=== PATIENT | female | born 1955 | race Caucasian/White ===

== ENCOUNTER 2016-06-22 21:10 | Emergency (ER) | payer OTHER ==
[~2016-06-22] VITALS: Ht 149.9 cm; Wt 51.0 kg
[~2016-06-22 21:10] MED LIST: AMIT25TA9 PO; MELO7.5T7 PO; RMR15 PO; SIMV20TA2 PO
[2016-06-22 21:17] VITALS: TEMP 37.3; Ht 149.9 cm; Wt 51.0 kg
[2016-06-22] MEDS ORDERED: OXYCODONE HCL IR 5 MG TAB (IMMEDIATE RELEASE) PO STA (21:34)
[2016-06-22] MEDS ORDERED: ZCR40 PO (21:39)
[2016-06-22] MEDS ORDERED: MIRT30TA3 PO (21:39)
[2016-06-22] MEDS ORDERED: CLX/20 PO (21:39)
[2016-06-22] MEDS ORDERED: VTMD PO (21:39)
[2016-06-22] MEDS ORDERED: LISI-461 PO (21:39)
[2016-06-22] MEDS ORDERED: OXYCODONE IR HOME PACK PO ONE (21:45)
--- NOTE | 2016-06-22 22:03 | DIAGNOSTIC IMAGING REPORT ---
CHEST CT WITHOUT CONTRAST CT DOSE: 180.15 mGy.cm HISTORY: Fall. Right-sided chest pain. TECHNIQUE: Multiaxial CT images of the chest were performed without contrast. COMPARISON: Chest CT 09/28/2014. FINDINGS: Nondisplaced right posterior lateral 11th rib fracture. No pneumothorax. No pleural effusions. The central airways are patent. Mild emphysema. Mild bibasilar subsegmental atelectasis. Stable 4 mm groundglass nodule within the left upper lobe on image 65. Stable multiple subpleural nodular densities within the base of the right lower lobe. These demonstrate near 2 year stability. Dominant nodular foci measure 8 mm. No new nodules. Normal caliber thoracic aorta. The unenhanced spleen and adrenal glands are unremarkable. Cholecystectomy. Stable 7 mm hypodense lesion within the right hepatic dome. This is incomplete characterize on this noncontrast study but favors a cyst. Stable 5 mm of mental nodule anterior to the left hepatic lobe. Mildly enlarged axillary and mediastinal lymph nodes remain unchanged. No hilar lymphadenopathy. IMPRESSION: 1. Nondisplaced right 11th rib fracture. No pneumothorax. 2. Otherwise, no significant change compared the prior study. 3. Subcentimeter right lower lobe nodular densities and mildly enlarged axillary and mediastinal lymph nodes are again noted. Six-month chest CT follow up is recommended to evaluate for stability. 4. Emphysema. 5. Stable 5 mm omental nodule anterior to the left hepatic lobe. Electronically signed by: Karlo Balderas M.D. 06/22/2016 10:01 PM Dictated Date/Time: 06/22/2016 9:52 PM
[2016-06-22] MEDS ORDERED: OXYC1TAB3 PO ×2 (22:12→22:19)
[2016-06-22 22:26] VITALS: BP 144/89; PULSE 77; O2SAT 99
--- NOTE | 2016-06-23 03:23 | EMERGENCY ROOM VISIT NOTE ---
History First contact with patient: 21:34 Chief Complaint: RIB PAIN Stated Complaint: FELL ON ICE HAD RIGHT SIDE PAIN History of Present Illness The patient is a 61 year old female who presents to the Emergency Room with complaints of right lateral chest pain after she fell on the ice hitting her right side. Patient denies head injury, neck pain, back pain, abdominal pain, nausea, vomiting, diarrhea, loss of conscious. No prior rib injury to this area. No other, as per patient. No alcohol today. She does smoke. Review of Systems See HPI for pertinent positives & negatives. A total of 10 systems reviewed and were otherwise negative. Past Medical/Surgical History Hypertension, hyperlipidemia, migraines, cholecystectomy Social History Smoking Status: Current Every Day Smoker Alcohol Use: none Drug Use: none Current/Historical Medications Scheduled Amitriptyline Hcl (Elavil), 25 MG PO DAILY Citalopram (Citalopram Hydrobromide), 20 MG PO DAILY Ergocalciferol (Vitamin D), 50,000 INTER.UNIT PO WK Lisinopril (Lisinopril), 10 MG PO DAILY Meloxicam (Mobic), 7.5 MG PO DAILY Mirtazapine (Remeron), 30 MG PO HS Simvastatin (Simvastatin), 40 MG PO QPM Scheduled PRN Oxycodone Immediate Rel Tab (Roxicodone Ir), 1-2 TAB PO Q4H PRN for Severe Pain Allergies Coded Allergies: No Known Allergies (Unverified , 03/29/14) Physical Exam Vital Signs Date Time Temp Pulse Resp B/P Pulse Ox O2 Delivery O2 Flow Rate FiO2 06/22/16 22:26 77 16 144/89 99 06/22/16 21:17 37.3 98 16 186/83 98 Room Air Pain Rating (0-10): 0 Physical Exam PHYSICAL EXAM: VITALS: Vitals are noted on the nurse's note and reviewed by myself. Vital signs stable. GENERAL: Pleasant female pacing around treatment room, in no acute distress, nondiaphoretic, well-developed well-nourished. SKIN: The skin was without obvious lacerations or abrasions. Capillary reflex less than 2 seconds. HEAD: Normocephalic atraumatic. EARS: External auditory canals clear, tympanic membranes pearly hernandez without erythema or effusion bilaterally. No hemotympanums. No salomon sign. No mastoid tenderness. EYES: Pupils equal round and reactive to light and accommodation. Conjunctivae without injection, sclerae without icterus. Extraocular movements intact. NOSE: Patent, turbinates without inflammation or discharge. No sinus tenderness. No septal hematoma or bleeding. FACE: No facial bone tenderness. Full range of motion of the jaw without tenderness. MOUTH: Mucous membranes moist. Pharynx without erythema or exudate. Uvula midline. Airway patent. Tongue does not deviate. NECK: Supple without nuchal rigidity. Cervical spine is nontender. Full range of motion of the neck without tenderness. No JVD. HEART: Regular rate and rhythm LUNGS: Clear to auscultation bilaterally without wheezes, rales or rhonchi. No dullness to percussion. No retractions or accessory muscle use. Lower lateral chest wall tenderness. ABDOMEN: Positive bowel sounds x 4. Normal tympanic percussion. Soft, nontender, without masses or organomegaly. No guarding or rebound tenderness. MUSCULOSKELETAL: No tenderness of the thoracic or lumbar spine. No tenderness with pelvic rocking. Full range of motion without tenderness to palpation in all extremities. Normal gait. Strength 5/5 throughout. Peripheral pulses 2+. NEURO: Patient was alert and oriented to person place and time. Normal Mini- Mental status exam. Normal sensation to light and sharp touch. Negative Romberg and pronator drift. Cerebellar function intact. No focal neurological deficits. Medical Decision & Procedures Medications Administered Medications (Trade) Dose Ordered Sig/Chicho Route Start Time Stop Time Status Last Admin Dose Admin Oxycodone HCl (Roxicodone Immediate Rel Tab) 5 mg NOW STAT PO 06/22/16 21:34 06/22/16 21:35 DC 06/22/16 21:34 5 MG ED Course Prior records/ancillary studies reviewed. Triage Nursing notes reviewed. Additional history obtained from family. The patient's history was concerning for traumatic injury Differential diagnosis: Etiologies such as fracture, dislocation, intra-abdominal, pneumothorax, intrathoracic , intracranial, neurologic, as well as other traumatic pathologies were entertained. Physical examination findings: As above. The patients vitals were hypertensive ER treatment provided: Incentive spirometry, OxyIR On reassessment the patient felt better. Vital signs were stable. Diagnostic interpretation by me: Imaging studies: CHEST CT WITHOUT CONTRAST CT DOSE: 180.15 mGy.cm HISTORY: Fall. Right-sided chest pain. TECHNIQUE: Multiaxial CT images of the chest were performed without contrast. COMPARISON: Chest CT 09/28/2014. FINDINGS: Nondisplaced right posterior lateral 11th rib fracture. No pneumothorax. No pleural effusions. The central airways are patent. Mild emphysema. Mild bibasilar subsegmental atelectasis. Stable 4 mm groundglass nodule within the left upper lobe on image 65. Stable multiple subpleural nodular densities within the base of the right lower lobe. These demonstrate near 2 year stability. Dominant nodular foci measure 8 mm. No new nodules. Normal caliber thoracic aorta. The unenhanced spleen and adrenal glands are unremarkable. Cholecystectomy. Stable 7 mm hypodense lesion within the right hepatic dome. This is incomplete characterize on this noncontrast study but favors a cyst. Stable 5 mm of mental nodule anterior to the left hepatic lobe. Mildly enlarged axillary and mediastinal lymph nodes remain unchanged. No hilar lymphadenopathy. IMPRESSION: 1. Nondisplaced right 11th rib fracture. No pneumothorax. 2. Otherwise, no significant change compared the prior study. 3. Subcentimeter right lower lobe nodular densities and mildly enlarged axillary and mediastinal lymph nodes are again noted. Six-month chest CT follow up is recommended to evaluate for stability. 4. Emphysema. 5. Stable 5 mm omental nodule anterior to the left hepatic lobe. This appears to be consistent with rib fracture status post fall. Patient's forgot to take her blood pressure medication. She is advised to take as directed. She is advised to incentive spirometry 10 times an hour for next 2 weeks to help prevent a drop lung or infection. She is strongly encouraged to quit smoking. She is advised to follow-up family care in a few days or here in the ER sooner for chest pain, difficulty breathing, fevers, worsening signs or symptoms or as needed. Patient did not have an acute abdomen on exam. She was neurovascularly and neurologically intact. No other injuries are noted. She is well-appearing and asked to leave. I felt this was reasonable.. By the evaluation outlined above emergent etiologies such as dislocation, intra- abdominal, pneumothorax, pulmonary contusion, hemothorax, intracranial, neurologic,as well as others were deemed relatively unlikely. The pt informed about the findings as listed above. All questions were answered and pleased with the treatment. Return instructions were outlined and the patient was discharged in stable condition. Outpatient prescription management: OxyIR Referral: The patient was referred to family for follow-up in 2 to 3 days for a recheck of the current condition. Medical Decision As above Impression Primary Impression: Right rib fracture Additional Impressions: Lung nodule seen on imaging study Fall Departure Information Dispostion Home / Self-Care Condition GOOD Prescriptions Oxycodone Immediate Rel Tab (ROXICODONE IR) 5 Mg Tab 1-2 TAB PO Q4H Y for Severe Pain, #10 TAB initial course Prov: Luciana Wheatley PA-C 06/22/16 Forms WORK / SCHOOL INSTRUCTIONS, HOME CARE DOCUMENTATION FORM, IMPORTANT VISIT INFORMATION Patient Instructions My [facility], ED Fx Rib Additional Instructions DO NOT drive, drink alcohol, operate machinery, or perform dangerous activities today. You were given medications in the ER that can affect your ability to safely function or operate a vehicle. Incentive spirometry 10 times an hour for the next 2 weeks while you're awake. Oxycodone (OxyIR) 5mg: Take 1-2 pills every four hours for breakthrough pain. Avoid alcohol, operating machinery or dangerous equipment, working on ladders or roofs, DRIVING, or situations where being under the influence may be dangerous. It is recommended to use an [id number] stool softener such as Colace, 100mg twice daily while taking this medication to avoid constipation. Ibuprofen(Motrin, Advil) may be used for fever or pain. Use 600mg every six hours as needed. Take with food. Avoid using more than 2400mg in a 24 hour period. Do not use 2400mg per day for more than three consecutive days without physician direction. Prolonged inappropriate use can lead to stomach upset or ulcers. This medication can be taken if you need to drive, work, or perform activities which may be dangerous when taking narcotic pain medication. (AND/OR) Acetaminophen(Tylenol) may be used for fever or pain. Use 1000mg every six hours as needed. Avoid using more than 3000mg in a 24 hour period. This medication can be taken if you need to drive, work, or perform activities which may be dangerous when taking narcotic pain medication. Rest and avoid heavy lifting until your symptoms resolve and then gradually return to full activity. A good rule of thumb is if it hurts your chest to perform a certain activity, then it should be avoided until you are healthy again. Continue current medications. Return to the ER immediately for any fever, chest painb, abdominal pain, numbness, tingling, severe pain, loss of control of your bowels or bladder, inability to walk, or as needed. Follow up with your primary care physician within 2-3 days for a recheck of your current condition. Problem Qualifiers Primary Impression: Right rib fracture Encounter type: initial encounter Rib fracture type: single rib Fracture type: closed Qualified Codes: S22.31XA - Fracture of one rib, right side, initial encounter for closed fracture
== END 2016-06-22 22:27 | disposition home or self-care (01) ==
LOC: C.EDB 21:12 → C.EDD 22:27
DX: S22.31XA Fracture of one rib, right side, initial encounter for closed fracture (principal); W00.0XXA Fall on same level due to ice and snow, initial encounter; F17.200 Nicotine dependence, unspecified, uncomplicated; I10 Essential (primary) hypertension; E78.5 Hyperlipidemia, unspecified; Z90.49 Acquired absence of other specified parts of digestive tract

== ENCOUNTER 2021-04-19 11:54 | Inpatient (IN) ==
--- NOTE | 2021-04-19 12:13 | Emergency Department Note ---
Impression & Plan Expressive aphasia ADMIT ED Provider Note HPI: The patient is a 66-year-old female with history of hypertension, hyperlipidemia, active smoker, presents to the emergency department with a chief complaint of abnormal speech pattern that was noted today at an outpatient appointment. Per report this has been ongoing since Sunday. Here in the ED the patient is able to follow commands, she is able to answer some of my questions appropriately but overall seems to have issues with expressive aphasia. She is hemodynamically stable on arrival and saturating well on room air. She does not have any focal motor deficits on my examination. ROS: -Neuro: Abnormal speech pattern, expressive aphasia x several days *10 point review systems was conducted and is otherwise negative unless stated above *Outpatient medications and allergy history reviewed PE: General: Alert, NAD HEENT: Normocephalic, atraumatic Eyes: Extraocular eye movement is intact, no scleral erythema Pulmonary: Clear to auscultation bilaterally, no wheezing Cardio: Regular rate and rhythm GI: Abdomen is soft, nontender : No suprapubic tenderness MSK: No evidence of trauma or malformation of the extremities, no edema Skin: No evidence of rash Neuro: Alert, equal bilateral track coach strength, symmetrical facial movements are appreciated, there is no ataxia on bilateral [id number] testing Psychiatric: Cooperative patient monitor: - An order was placed for continuous cardiac monitoring - Patient was noted to be in sinus rhythm with rate of 95 EKG: Rate: 77 Rhythm: Normal sinus rhythm Intervals: Within normal limits ST changes: No ST elevation Time: 1203 Medical Decision Making: Patient presented to the emergency department with an abnormal speech pattern, this was apparently first noted several days ago by family. On arrival here to the ED she is slightly hypertensive but otherwise nontoxic-appearing. She is able to follow my commands appropriately. She is alert. She does have some difficulty with answering some of my questions, there is a delayed response to some questions. Other brief questions she is able to answer appropriately. She otherwise does not have any focal motor deficits on arrival. She was sent in following an outpatient appointment today. CT imaging of the head does not show any evidence of an obvious subacute stroke, lab work is otherwise generally unremarkable. Chest x-ray does show bilateral airspace opacities consistent with viral pneumonia. Patient did test positive for COVID-19 while here in the ED. She does not appear to be encephalopathic, she does answer questions appropriately when she is able, I do have concern that this is an expressive aphasia and she may have a stroke that should be further investigated as an inpatient and she should have an MRI obtained. Patient was given an aspirin here in the ED. I discussed the above findings with the patient and she is in agreement for admission. Case was discussed with the [facility] hospitalist service and the patient was admitted in stable condition. Diagnosis: 1. Strokelike symptoms 2. Altered speech pattern 3. Expressive aphasia 4. Active tobacco use/active smoker Disposition: Admission Donn Teague DO Emergency Medicine Past Med/Surg History Medical History (Updated 04/19/21 @ 16:47 by Donn Teague DO) Hyperlipidemia Hypertension Osteoporosis Surgical History No significant past surgical history Social History Smoking Status: Current every day smoker Tobacco Type: Cigarettes Hx Alcohol Use: Yes Hx Substance Use: No Preferred Language: Kiswahili marital status: current occupational status: unemployed Feels Safe at Home: Hesitant to Answer Allergies Allergies Allergy/AdvReac Type Severity Reaction Status Date / Time No Known Allergies Allergy Verified 04/19/21 15:37 Home Meds Home Medications Medication Instructions Recorded Confirmed simvastatin 40 mg tablet (Zocor) 40 mg PO HS 06/16/18 04/19/21 valsartan 40 mg tablet 40 mg PO QAM 10/30/19 04/19/21 ibuprofen 200 mg tablet 200 mg PO Q6H PRN 12/08/19 04/19/21 methylprednisolone 4 mg tablets in 4 mg PO UD 12/08/19 04/19/21 a dose pack ergocalciferol (vitamin D2) 1,250 1,250 mcg PO MONTHLY 04/19/21 04/19/21 mcg (50,000 unit) capsule Previous Rx's Medication Instructions Recorded tramadol 50 mg tablet (Ultram) 50 mg PO Q8H PRN #10 tab 12/08/19 Results & Data (ED) Vital Signs Vital Signs - 24 hr 04/19/21 11:56 04/19/21 12:04 Temperature 36.8 C Temperature Source Oral Pulse Rate [Apical] 98 H Respiratory Rate 20 Blood Pressure [Right Arm] 183/81 H Blood Pressure Mean [Right Arm] 115 Pulse Oximetry 96 Oxygen Delivery Method Room Air Sepsis Recent Fever Within 48 Hours No Sepsis New/Unexplained Change in Mental Status Yes Sepsis Action Taken by Nursing No Action Required Laboratory Data Result diagrams: 04/19/21 Unknown 04/19/21 Unknown Lab Results 04/19/21 04/19/21 04/19/21 Range/Units 12:25 12:25 12:30 WBC (4.8-10.8) K/uL RBC (4.2-5.4) M/uL Hgb (12.0-16.0) g/dL Hct (37-47) % MCV (80-100) fL MCH (25-34) pg MCHC (32-36) g/dL RDW Std Deviation (36.4-46.3) fL RDW Coeff of Micah (11.5-14.5) % Plt Count (130-400) K/uL MPV (7.4-10.4) fL Immature Gran % (Auto) % Neut % (Auto) % Lymph % (Auto) % [place] % (Auto) % Eos % (Auto) % Baso % (Auto) % Neut # (Auto) (1.4-6.5) K/uL Lymph # (Auto) (1.2-3.4) K/uL [place] # (Auto) (0.11-0.59) K/uL Eos # (Auto) (0-0.5) K/uL Baso # (Auto) (0-0.2) K/uL Immature Gran # (Auto) (0.00-0.02) K/uL PT (9.0-12.0) Seconds INR (0.9-1.1) APTT (21.0-31.0) Seconds PTT Ratio Sodium (136-145) mmol/L Potassium (3.5-5.1) mmol/L Chloride (98-107) mmol/L Carbon Dioxide (21-32) mmol/L Anion Gap (3-11) BUN (6-23) mg/dl Creatinine (0.6-1.2) mg/dl Est Cr Clr Drug Dosing ml/min Est GFR ( Amer) ml/min Est GFR (Non-Af Amer) ml/min BUN/Creatinine Ratio (10-20) Glucose (70-99) mg/dl Calcium (8.5-10.1) mg/dl Magnesium (1.7-2.4) mg/dl Total Bilirubin (0.2-1.0) mg/dl AST (13-39) U/L ALT (7-52) U/L Alkaline Phosphatase (34-104) U/L Ammonia (18-72) umol/L Troponin I (0-0.04) ng/ml Total Protein (6.0-8.3) gm/dl Albumin (3.4-5.0) gm/dl Globulin (2.5-4.0) gm/dl Albumin/Globulin Ratio (0.9-2) Ethyl Alcohol mg/dL < 10.0 H (0-9.9) mg/dl SARS-CoV-2, RNA, NAAT POSITIVE A* (NEGATIVE) Blood Type A Positive Antibody Screen NEGATIVE 04/19/21 04/19/21 04/19/21 Range/Units Unknown Unknown Unknown WBC 12.13 H (4.8-10.8) K/uL RBC 5.14 (4.2-5.4) M/uL Hgb 15.0 (12.0-16.0) g/dL Hct 44.5 (37-47) % MCV 86.6 (80-100) fL MCH 29.2 (25-34) pg MCHC 33.7 (32-36) g/dL RDW Std Deviation 46.2 (36.4-46.3) fL RDW Coeff of Micah 14.5 (11.5-14.5) % Plt Count 480 H (130-400) K/uL MPV 9.3 (7.4-10.4) fL Immature Gran % (Auto) 0.3 % Neut % (Auto) 61.0 % Lymph % (Auto) 26.3 % [place] % (Auto) 12.1 % Eos % (Auto) 0.0 % Baso % (Auto) 0.3 % Neut # (Auto) 7.39 H (1.4-6.5) K/uL Lymph # (Auto) 3.19 (1.2-3.4) K/uL [place] # (Auto) 1.47 H (0.11-0.59) K/uL Eos # (Auto) 0.00 (0-0.5) K/uL Baso # (Auto) 0.04 (0-0.2) K/uL Immature Gran # (Auto) 0.04 H (0.00-0.02) K/uL PT 9.7 (9.0-12.0) Seconds INR 1.0 (0.9-1.1) APTT 26.1 (21.0-31.0) Seconds PTT Ratio 1.0 Sodium 139 (136-145) mmol/L Potassium 3.4 L (3.5-5.1) mmol/L Chloride 109 H (98-107) mmol/L Carbon Dioxide 20 L (21-32) mmol/L Anion Gap 10 (3-11) BUN 18 (6-23) mg/dl Creatinine 0.72 (0.6-1.2) mg/dl Est Cr Clr Drug Dosing 46.2 ml/min Est GFR ( Amer) 100.4 ml/min Est GFR (Non-Af Amer) 86.7 ml/min BUN/Creatinine Ratio 25.0 H (10-20) Glucose 96 (70-99) mg/dl Calcium 9.2 (8.5-10.1) mg/dl Magnesium 2.0 (1.7-2.4) mg/dl Total Bilirubin 0.4 (0.2-1.0) mg/dl AST 21 (13-39) U/L ALT 12 (7-52) U/L Alkaline Phosphatase 79 (34-104) U/L Ammonia (18-72) umol/L Troponin I < 0.03 (0-0.04) ng/ml Total Protein 7.6 (6.0-8.3) gm/dl Albumin 4.6 (3.4-5.0) gm/dl Globulin 3.0 (2.5-4.0) gm/dl Albumin/Globulin Ratio 1.5 (0.9-2) Ethyl Alcohol mg/dL (0-9.9) mg/dl SARS-CoV-2, RNA, NAAT (NEGATIVE) Blood Type Antibody Screen 04/19/21 Range/Units Unknown WBC (4.8-10.8) K/uL RBC (4.2-5.4) M/uL Hgb (12.0-16.0) g/dL Hct (37-47) % MCV (80-100) fL MCH (25-34) pg MCHC (32-36) g/dL RDW Std Deviation (36.4-46.3) fL RDW Coeff of Micah (11.5-14.5) % Plt Count (130-400) K/uL MPV (7.4-10.4) fL Immature Gran % (Auto) % Neut % (Auto) % Lymph % (Auto) % [place] % (Auto) % Eos % (Auto) % Baso % (Auto) % Neut # (Auto) (1.4-6.5) K/uL Lymph # (Auto) (1.2-3.4) K/uL [place] # (Auto) (0.11-0.59) K/uL Eos # (Auto) (0-0.5) K/uL Baso # (Auto) (0-0.2) K/uL Immature Gran # (Auto) (0.00-0.02) K/uL PT (9.0-12.0) Seconds INR (0.9-1.1) APTT (21.0-31.0) Seconds PTT Ratio Sodium (136-145) mmol/L Potassium (3.5-5.1) mmol/L Chloride (98-107) mmol/L Carbon Dioxide (21-32) mmol/L Anion Gap (3-11) BUN (6-23) mg/dl Creatinine (0.6-1.2) mg/dl Est Cr Clr Drug Dosing ml/min Est GFR ( Amer) ml/min Est GFR (Non-Af Amer) ml/min BUN/Creatinine Ratio (10-20) Glucose (70-99) mg/dl Calcium (8.5-10.1) mg/dl Magnesium (1.7-2.4) mg/dl Total Bilirubin (0.2-1.0) mg/dl AST (13-39) U/L ALT (7-52) U/L Alkaline Phosphatase (34-104) U/L Ammonia 62.0 (18-72) umol/L Troponin I (0-0.04) ng/ml Total Protein (6.0-8.3) gm/dl Albumin (3.4-5.0) gm/dl Globulin (2.5-4.0) gm/dl Albumin/Globulin Ratio (0.9-2) Ethyl Alcohol mg/dL (0-9.9) mg/dl SARS-CoV-2, RNA, NAAT (NEGATIVE) Blood Type Antibody Screen Imaging Data Radiologist's Impression: Head CT 04/19/21 12:10 CT OF THE HEAD WITHOUT CONTRAST CLINICAL HISTORY: Stroke Like Symptoms COMPARISON STUDY: No previous studies for comparison. CT DOSE: 537.48 mGy.cm TECHNIQUE: Helical axial images of the head were obtained without IV contrast. Automated exposure control was utilized for the study. A dose lowering technique was utilized adhering to the principles of ALARA. FINDINGS: No acute intracranial hemorrhage, midline shift or mass effect is present. The ventricular system is unremarkable. The basal cisterns are patent. No extra-axial collections are present. Mild white matter hypodensity suggests small vessel disease. There is minimal bilateral basal ganglia calcification. There are no findings to suggest acute dural sinus thrombosis or acute territorial infarct. No significant calvarial abnormalities are present. IMPRESSION: No acute intracranial findings. ACT 112: Negative or not required by law. Electronically signed by: Carroll Avendano M.D. 04/19/2021 12:59 PM Chest X-Ray 04/19/21 13:13 XR chest 1V portable CLINICAL HISTORY: AMS Covid pneumonia TECHNIQUE: Single frontal radiograph of the chest was obtained. Comparison: Comparison is made to chest one view 03/29/2014 FINDINGS: No lines and tubes are seen. The cardiomediastinal silhouette is normal. Bilateral lower lung predominant airspace opacities are seen. No evidence of pleural effusion or pneumothorax. IMPRESSION: Bilateral lower lung predominant airspace opacities are compatible with history of viral pneumonia. ACT 112: Negative or not required by law. Electronically signed by: Scott Madera M.D. 04/19/2021 1:56 PM Discharge Plan Visit Data Chief Complaint: TIA Symptoms Stated Complaint: slurred speech, altered since sunday ED Provider: Donn Teague Discharge Problem: Expressive aphasia Forms Stand Alone Forms: My [facility] Prescriptions Prescriptions: No Action simvastatin [Zocor] 40 mg Tablet 40 mg PO HS RF: 0 valsartan 40 mg tablet 40 mg PO QAM RF: 0 ibuprofen 200 mg Tablet 200 mg PO Q6H PRN (Reason: Pain) RF: 0 tramadol [Ultram] 50 mg tablet 50 mg PO Q8H PRN (Reason: pain) Qty: 10 RF: 0 methylprednisolone 4 mg tablets,dose pack 4 mg PO UD RF: 0 ergocalciferol (vitamin D2) 1,250 mcg (50,000 unit) capsule 1,250 mcg PO MONTHLY RF: 0 Referrals Referrals: Nathaniel Saldivar MD [Primary Care Provider] -
[2021-04-19 12:40] LABS: Basophils # (auto) 0.04 K/uL (0-0.2); Basophils % (auto) 0.3 %; Hematocrit (blood only) 44.5 % (37-47); Immature Granulocytes # (auto) 0.04 K/uL (0.00-0.02); Immature Granulocytes % (auto) 0.3 %; Lymphocytes # (auto) 3.19 K/uL (1.2-3.4); Lymphocytes % (auto) 26.3 %; Mean Corpuscular Hemoglobin 29.2 pg (25-34); Mean Corpuscular Hgb Conc 33.7 g/dL (32-36); Mean Corpuscular Volume 86.6 fL (80-100); Mean Platelet Volume 9.3 fL (7.4-10.4); Monocytes # (auto) 1.47 K/uL (0.11-0.59); Monocytes % (auto) 12.1 %; Neutrophils # (auto) 7.39 K/uL (1.4-6.5); Platelet Count 480 K/uL (130-400); RDW Coefficient of Variation 14.5 % (11.5-14.5); RDW Standard Deviation 46.2 fL (36.4-46.3); Red Blood Count 5.14 M/uL (4.2-5.4); White Blood Count 12.13 K/uL (4.8-10.8)
[2021-04-19 12:53] LABS: Partial Thromboplastin Time 26.1 Seconds (21.0-31.0); Prothrombin Time 9.7 Seconds (9.0-12.0)
--- NOTE | 2021-04-19 12:54 | Electrocardiogram Report ---
Test Reason : Blood Pressure : / mmHG Vent. Rate : 077 BPM Atrial Rate : 077 BPM P-R Int : 142 ms QRS Dur : 078 ms QT Int : 376 ms P-R-T Axes : 080 085 061 degrees QTc Int : 425 ms Normal sinus rhythm Diffuse Minor Nonspecific ST abnormality Abnormal ECG When compared with ECG of 11-MAR-2008 19:09, Diffuse Nonspecific ST abnormality now present Confirmed by Gabe Pascual ([id number]) on 04/19/2021 12:54:18 PM Referred By: Confirmed By:Gabe Pascual
--- NOTE | 2021-04-19 13:00 | CT Scan Report ---
CT OF THE HEAD WITHOUT CONTRAST CLINICAL HISTORY: Stroke Like Symptoms COMPARISON STUDY: No previous studies for comparison. CT DOSE: 537.48 mGy.cm TECHNIQUE: Helical axial images of the head were obtained without IV contrast. Automated exposure con trol was utilized for the study. A dose lowering technique was utilized adhering to the principles o f ALARA. FINDINGS: No acute intracranial hemorrhage, midline shift or mass effect is present. The ventricular system is unremarkable. The basal cisterns are patent. No extra-axial collections are present. Mild w tushar matter hypodensity suggests small vessel disease. There is minimal bilateral basal ganglia calci fication. There are no findings to suggest acute dural sinus thrombosis or acute territorial infarct. No significant calvarial abnormalities are present. IMPRESSION: No acute intracranial findings. ACT 112: Negative or not required by law. Electronically signed by: Carroll Avendano M.D. 04/19/2021 12:59 PM
[2021-04-19 13:06] LABS: Alanine Aminotransferase 12 U/L (7-52); Albumin Globulin Ratio 1.5 (0.9-2); Albumin Level 4.6 gm/dl (3.4-5.0); Alkaline Phosphatase 79 U/L (34-104); Anion Gap 10 (3-11); Aspartate Aminotransferase 21 U/L (13-39); Bilirubin,Total 0.4 mg/dl (0.2-1.0); Blood Urea Nitrogen 18 mg/dl (6-23); Calcium 9.2 mg/dl (8.5-10.1); Carbon Dioxide 20 mmol/L (21-32); Chloride 109 mmol/L (98-107); Creatinine Clr Calc Pharmacy 46.2 ml/min; Est GFR (African American) 100.4 ml/min; Est GFR (Non-African American) 86.7 ml/min; Glucose 96 mg/dl (70-99); Potassium 3.4 mmol/L (3.5-5.1); Sodium 139 mmol/L (136-145); Total Protein 7.6 gm/dl (6.0-8.3); Troponin I < 0.03 ng/ml (0-0.04)
--- NOTE | 2021-04-19 13:57 | XRay Report ---
XR chest 1V portable CLINICAL HISTORY: AMS Covid pneumonia TECHNIQUE: Single frontal radiograph of the chest was obtained. Comparison: Comparison is made to chest one view 03/29/2014 FINDINGS: No lines and tubes are seen. The cardiomediastinal silhouette is normal. Bilateral lower lung predomi nant airspace opacities are seen. No evidence of pleural effusion or pneumothorax. IMPRESSION: Bilateral lower lung predominant airspace opacities are compatible with history of viral pneumonia. ACT 112: Negative or not required by law. Electronically signed by: Scott Madera M.D. 04/19/2021 1:56 PM
[2021-04-19] MEDS ORDERED: ASPIRIN CHEW 324 MG PO STA (16:34)
--- NOTE | 2021-04-19 17:51 | History & Physical Report ---
Date of Service April 19, 2021 Assessment & Plan (1) Expressive aphasia: Plan: -Admit to telemetry -Patient presenting by referral of PCP office for evaluation of altered mental status and difficulty speaking. -In the ED, head CT negative for acute findings -S/p full dose aspirin, continue with aspirin 81 mg daily -Check vitamin B12 and folic acid levels -Neurochecks -Brain MRI, resting echo -Continue statin -Neurology consult (2) COVID-19: Plan: -Tested positive for COVID-19 -Saturating well on room air, denies pulmonary complaints -Does not meet criteria for COVID-19 directed therapy at this time -Patient unvaccinated (3) Hypertension: Plan: -Continue valsartan (4) DVT prophylaxis: Plan: -SQ Lovenox History of Present Illness Chief Complaint: Altered mental status, speech difficulty Primary Care Provider: Nathaniel Saldivar MD 66-year-old female with PMH HTN, HLD, tobacco use disorder, and other problems listed below who presents to the ED by referral of PCP office for evaluation of altered mental status and speech difficulty. Patient is a poor historian. History is obtained from chart review. Patient's boyfriend's daughter took the patient today to be evaluated at PCP office with complaints of increased confusion and difficulty speaking. Symptoms have been going on for the past 4 days. At the time my exam, patient reports that she has been feeling fatigued over the past few days, otherwise offers no other complaints. She does have a mild expressive aphasia/word finding. In the ED, patient is hemodynamically stable. Head CT is negative for acute findings. Patient has incidentally tested positive for COVID-19. No respiratory symptoms reported. Patient is hemodynamically stable. She was given a full dose aspirin. Allergies Allergy/AdvReac Type Severity Reaction Status Date / Time No Known Allergies Allergy Verified 04/19/21 15:37 Home Medications Medication Instructions Recorded Confirmed Type simvastatin 40 mg tablet (Zocor) 40 mg PO HS 06/16/18 04/19/21 History valsartan 40 mg tablet 40 mg PO QAM 10/30/19 04/19/21 History Past Med/Surg History Medical History Hyperlipidemia Hypertension Osteoporosis Tobacco use disorder Surgical History History of cholecystectomy History of tubal ligation Family History Father Alcoholism Mother Alcoholism Social History (Updated 04/19/21 @ 17:47 by KEVIN Machuca) Smoking Status: Current every day smoker Tobacco Type: Cigarettes Hx Alcohol Use: No Hx Substance Use: No Preferred Language: Cambodian marital status: current occupational status: unemployed Feels Safe at Home: Hesitant to Answer Review of Systems Review of Systems: Unobtainable due to cognitive status Physical Exam Constitutional: + thin; no acute distress Vitals as above Eyes: PERRL, conjunctivae normal, anicteric sclerae ENMT: external ear and nose normal, oropharynx normal Respiratory: normal respiratory effort; no respiratory distress Auscultation: + diminished lung sounds Cardiovascular: Rate/Rhythm: regular rate and regular rhythm Vessels: normal peripheral pulses Extremities: no edema Gastrointestinal (Abdomen): normal bowel sounds, soft, nontender, no hepatosplenomegaly Musculoskeletal: no cyanosis or clubbing, extremities motor strength 5/5 Skin: no rashes, warm and dry Neurologic: moves all extremities; no focal motor deficits Speech / Cognition: + expressive aphasia (Word finding) Cranial Nerves: PERRL, normal accommodation, EOM intact bilaterally and normal facial strength Psychiatric: A+Ox3, euthymic affect Results & Data Results & Data ([facility]) Vital Signs (Past 12 Hours) Vital Signs Temp Pulse Resp BP Pulse Ox 04/19/21 16:04 78 20 148/67 H 99 04/19/21 12:04 36.8 C 98 H 20 183/81 H 96 Laboratory Results Short CBC 04/19/21 Range/Units Unknown WBC 12.13 H (4.8-10.8) K/uL Hgb 15.0 (12.0-16.0) g/dL Hct 44.5 (37-47) % Plt Count 480 H (130-400) K/uL BMP 04/19/21 Unknown Sodium 139 Potassium 3.4 L Chloride 109 H Carbon Dioxide 20 L BUN 18 Creatinine 0.72 Glucose 96 Calcium 9.2 Cardiac Enzymes 04/19/21 Range/Units Unknown Troponin I < 0.03 (0-0.04) ng/ml Liver Function 04/19/21 Range/Units Unknown Total Bilirubin 0.4 (0.2-1.0) mg/dl AST 21 (13-39) U/L ALT 12 (7-52) U/L Alkaline Phosphatase 79 (34-104) U/L Albumin 4.6 (3.4-5.0) gm/dl Diagnostic Findings Head CT 04/19/21 12:10 CT OF THE HEAD WITHOUT CONTRAST CLINICAL HISTORY: Stroke Like Symptoms COMPARISON STUDY: No previous studies for comparison. CT DOSE: 537.48 mGy.cm TECHNIQUE: Helical axial images of the head were obtained without IV contrast. Automated exposure control was utilized for the study. A dose lowering technique was utilized adhering to the principles of ALARA. FINDINGS: No acute intracranial hemorrhage, midline shift or mass effect is present. The ventricular system is unremarkable. The basal cisterns are patent. No extra-axial collections are present. Mild white matter hypodensity suggests small vessel disease. There is minimal bilateral basal ganglia calcification. There are no findings to suggest acute dural sinus thrombosis or acute territorial infarct. No significant calvarial abnormalities are present. IMPRESSION: No acute intracranial findings. ACT 112: Negative or not required by law. Electronically signed by: Carroll Avendano M.D. 04/19/2021 12:59 PM Chest X-Ray 04/19/21 13:13 XR chest 1V portable CLINICAL HISTORY: AMS Covid pneumonia TECHNIQUE: Single frontal radiograph of the chest was obtained. Comparison: Comparison is made to chest one view 03/29/2014 FINDINGS: No lines and tubes are seen. The cardiomediastinal silhouette is normal. Bilat eral lower lung predominant airspace opacities are seen. No evidence of pleural effusion or pneumothorax. IMPRESSION: Bilateral lower lung predominant airspace opacities are compatible with history of viral pneumonia. ACT 112: Negative or not required by law. Electronically signed by: Scott Madera M.D. 04/19/2021 1:56 PM Code Status & VTE Plan VTE Prophylaxis Plan VTE Prophylaxis will be ordered: Yes
[2021-04-19 19:26] LABS: Folate (Folic Acid) 20.13 ng/ml (>5.38)
[2021-04-19] MEDS ORDERED: ACETAMINOPHEN 325 MG TAB PO PRN (20:44)
[2021-04-19] MEDS ORDERED: PHARMACIST DISCHARGE MED REC CONSULT PRN (20:44)
[2021-04-19] MEDS: SIMVASTATIN 40 MG TAB PO SCH (22:29)
[2021-04-19] MEDS: ENOXAPARIN INJ 40 MG/0.4 ML SYR SQ SCH (22:29)
[2021-04-20 06:52] LABS: Basophils # (auto) 0.04 K/uL (0-0.2); Basophils % (auto) 0.4 %; Eosinophils # (auto) 0.02 K/uL (0-0.5); Eosinophils % (auto) 0.2 %; Hematocrit (blood only) 43.4 % (37-47); Hemoglobin 14.5 g/dL (12.0-16.0); Immature Granulocytes # (auto) 0.03 K/uL (0.00-0.02); Immature Granulocytes % (auto) 0.3 %; Lymphocytes % (auto) 34.5 %; Mean Corpuscular Hemoglobin 28.5 pg (25-34); Mean Corpuscular Hgb Conc 33.4 g/dL (32-36); Mean Corpuscular Volume 85.3 fL (80-100); Mean Platelet Volume 9.6 fL (7.4-10.4); Monocytes # (auto) 1.07 K/uL (0.11-0.59); Monocytes % (auto) 9.7 %; Neutrophils # (auto) 6.07 K/uL (1.4-6.5); Neutrophils % (auto) 54.9 %; Platelet Count 423 K/uL (130-400); RDW Coefficient of Variation 14.2 % (11.5-14.5); RDW Standard Deviation 43.9 fL (36.4-46.3); Red Blood Count 5.09 M/uL (4.2-5.4); White Blood Count 11.03 K/uL (4.8-10.8)
[2021-04-20 07:13] LABS: BUN Creatinine Ratio 34.6 (10-20); Calcium 8.9 mg/dl (8.5-10.1); Creatinine Clr Calc Pharmacy 71.6 ml/min; Est GFR (African American) 114.6 ml/min; Est GFR (Non-African American) 98.9 ml/min; Potassium 3.2 mmol/L (3.5-5.1)
--- NOTE | 2021-04-20 07:55 | Magnetic Resonance Report ---
MRI OF THE BRAIN WITHOUT CONTRAST CLINICAL HISTORY: Expressive aphasia. Evaluate for stroke. COMPARISON STUDY: Head CT April 19, 2021. TECHNIQUE: Utilizing a 1.5 Claudia magnet and dedicated coil, multiplanar, multiecho imaging of the bra in was performed without IV contrast. FINDINGS: This exam is mildly compromised by motion artifact. There are no foci of restricted diffusi on to suggest acute infarct. No acute intracranial hemorrhage, midline shift or mass effect is presen t. Ventricular system is unremarkable. Basal cisterns are patent. There are no extra-axial collection s. Flow-voids for the major intracranial vessels are present. White matter T2 hyperintense foci sugge st small vessel disease. Calvarial signal is within normal limits. IMPRESSION: 1. No acute intracranial findings. 2. Exam mildly compromised by motion artifact. ACT 112: Negative or not required by law. Electronically signed by: Carroll Avendano M.D. 04/20/2021 7:53 AM
[2021-04-20] MEDS: ASPIRIN 81 MG ECTAB PO SCH (07:59)
[2021-04-20] MEDS: VALSARTAN 80 MG TAB PO SCH (07:59)
[2021-04-20] MEDS ORDERED: INFLUENZA VACCINE HIGH DOSE PF 65+ 0.7 ML SYR IM ONE (08:00)
[2021-04-20 08:01] LABS: Estimated Average Glucose 140 mg/dl; Hemoglobin A1C 6.5 % (4.5-5.6)
[2021-04-20] MEDS ORDERED: POTASSIUM CHLORIDE CRTAB 20 MEQ TABCR PO STA (09:05)
--- NOTE | 2021-04-20 12:01 | Neurology Consultation ---
Date of Consultation April 20, 2021 Assessment & Plan (1) COVID-19: 1. treat according to protocol (2) Expressive aphasia: 1. MRI no acute findings 2. start aspirin 81 mg if no contra indication 3. optmize HTN, HLD, DM LDL <70 4. PT/OT for discharge needs Supervising Physician Co-Signing Physician Notes A 66 year old woman admitted with altered mentation and speech changs in the setting of COVID 19. She is unvaccinated. MRI of the brain negative for acute stroke. Agree with Asa 81 mg daily. Suspect symptoms associated to COVID 19. Agree with COVID 19 supportive measures. Follow up with PCP as outpatient. Please call with any additional questions or concerns. History of Present Illness Reason for Consultation: expressive aphasia Requesting Physician: Beto Salmeron MD Attending Physician: Beto Salmeron MD History of Present Illness Nya is a 66 year old female with PMH- HTN, HLD, tobacco use disorder. She presented to the [facility] ED 04/19/21 by referral of PCP office for evaluation of altered mental status and speech difficulty. she is a poor historian. Her boyfriend's daughter took her for evaluation at PCP office with complaints of increased confusion and difficulty speaking. Symptoms have been going on for the past 4 days. She has been feeling fatigued over the past few days and does have a mild expressive aphasia/word finding.She tested positive for COVID-19. No respiratory symptoms reported. Patient is hemodynamically stable. She was given a full dose aspirin. She is 1ppd smoker She is not currently on aspirin daily. Allergies Allergy/AdvReac Type Severity Reaction Status Date / Time No Known Allergies Allergy Verified 04/19/21 15:37 Home Medications Medication Instructions Recorded Confirmed Type simvastatin 40 mg tablet (Zocor) 40 mg PO HS 06/16/18 04/19/21 History valsartan 40 mg tablet 40 mg PO QAM 10/30/19 04/19/21 History Patient History Medical History Hyperlipidemia Hypertension Osteoporosis Tobacco use disorder Surgical History History of cholecystectomy History of tubal ligation Family History Father Alcoholism Mother Alcoholism Social History (Updated 04/19/21 @ 17:47 by KEVIN Machuca) Smoking Status: Current every day smoker Tobacco Type: Cigarettes Cigarettes Per Day: 10; Second Hand Exposure: Yes; Do You Dip or Chew Tobacco: No; Tobacco Cessation Education Requested by Patient: No Hx Alcohol Use: Yes Hx Substance Use: No Preferred Language: Greenlandic Communication Ability: Effective Cherry Sorter Required: No Beliefs That Will Affect Care: None marital status: Current Living Situation: Other Current Living Situation Comment: "friend" current occupational status: unemployed Other Information That Helps Us Care for You: No Feels Safe at Home: No Is there a partner from a previous relationship who is making you feel unsafe now?: No Any Concerns about Your Family Situation: No Would You Like to Speak to Someone About Your Situation: No (Patient states that she is moving) Safety Concerns: Afraid for Self Assistive Devices: None Results & Data ([facility]) Vital Signs (Past 12 Hours) Vital Signs Temp Pulse Pulse Resp BP Pulse Ox 04/20/21 11:45 37.6 C H 80 18 134/57 L 97 04/20/21 07:46 37.2 C 87 17 114/67 96 04/20/21 07:36 87 04/20/21 03:18 36.8 C 77 16 130/72 98 Laboratory Results Abnormal lab results 04/19/21 04/19/21 04/19/21 Range/Units 12:25 12:30 Unknown WBC 12.13 H (4.8-10.8) K/uL Plt Count 480 H (130-400) K/uL Neut # (Auto) 7.39 H (1.4-6.5) K/uL Lymph # (Auto) (1.2-3.4) K/uL [place] # (Auto) 1.47 H (0.11-0.59) K/uL Immature Gran # (Auto) 0.04 H (0.00-0.02) K/uL Potassium (3.5-5.1) mmol/L Chloride (98-107) mmol/L Carbon Dioxide (21-32) mmol/L Creatinine (0.6-1.2) mg/dl BUN/Creatinine Ratio (10-20) Hemoglobin A1c (4.5-5.6) % Ethyl Alcohol mg/dL < 10.0 H (0-9.9) mg/dl SARS-CoV-2, RNA, NAAT POSITIVE A* (NEGATIVE) 04/19/21 04/20/21 04/20/21 Range/Units Unknown 06:05 06:05 WBC 11.03 H (4.8-10.8) K/uL Plt Count 423 H (130-400) K/uL Neut # (Auto) (1.4-6.5) K/uL Lymph # (Auto) 3.80 H (1.2-3.4) K/uL [place] # (Auto) 1.07 H (0.11-0.59) K/uL Immature Gran # (Auto) 0.03 H (0.00-0.02) K/uL Potassium 3.4 L 3.2 L (3.5-5.1) mmol/L Chloride 109 H 109 H (98-107) mmol/L Carbon Dioxide 20 L 19 L (21-32) mmol/L Creatinine 0.52 L (0.6-1.2) mg/dl BUN/Creatinine Ratio 25.0 H 34.6 H (10-20) Hemoglobin A1c (4.5-5.6) % Ethyl Alcohol mg/dL (0-9.9) mg/dl SARS-CoV-2, RNA, NAAT (NEGATIVE) 04/20/21 Range/Units 06:05 WBC (4.8-10.8) K/uL Plt Count (130-400) K/uL Neut # (Auto) (1.4-6.5) K/uL Lymph # (Auto) (1.2-3.4) K/uL [place] # (Auto) (0.11-0.59) K/uL Immature Gran # (Auto) (0.00-0.02) K/uL Potassium (3.5-5.1) mmol/L Chloride (98-107) mmol/L Carbon Dioxide (21-32) mmol/L Creatinine (0.6-1.2) mg/dl BUN/Creatinine Ratio (10-20) Hemoglobin A1c 6.5 H (4.5-5.6) % Ethyl Alcohol mg/dL (0-9.9) mg/dl SARS-CoV-2, RNA, NAAT (NEGATIVE) Diagnostic Findings CT head-No acute intracranial hemorrhage, midline shift or mass effect is present. The ventricular system is unremarkable. The basal cisterns are patent. No extra-axial collections are present. Mild white matter hypodensity suggests small vessel disease. There is minimal bilateral basal ganglia calcification. There are no findings to suggest acute dural sinus thrombosis or acute territorial infarct. No significant calvarial abnormalities are present. MRI brain-. No acute intracranial findings. Exam mildly compromised by motion artifact CXR-Bilateral lower lung predominant airspace opacities are compatible with history of viral pneumonia.
[2021-04-20] MEDS: SIMVASTATIN 40 MG TAB PO SCH (20:55)
[2021-04-20] MEDS: ENOXAPARIN INJ 40 MG/0.4 ML SYR SQ SCH (20:55)
--- NOTE | 2021-04-20 23:42 | Hospitalist Progress Note ---
Date of Service April 20, 2021 Assessment & Plan (1) Expressive aphasia: Plan: Present on admission with difficulty to speak Possible related to COVID 19 CT head showed no acute intracranial abnormality MRI showed no acute finding Echo showed no regional wall motion abnormality. a small PFO is present. Mild right to left interatrial shunt. EF greater than 70% Neuro on board recommended aspirin 81mg. Continue monitor in tele (2) COVID-19: Plan: Tested positive for COVID-19 Unvaccinated Does not meet criteria for COVID-19 therapy with dexamethasone and remdesivir since pt saturated well on RA and denies any SOB. Continue monitor closely (3) Hypertension: Plan: -Continue valsartan (4) DVT prophylaxis: Plan: -SQ Lovenox Admission and Anticipated Discharge Date Admission Date: April 19, 2021 Subjective Pt was seen and examined for follow up of aphasia Lying in bed with no acute distress Pt said that she feels ok She said that her breathing is ok Denies any chest pain, palpitation and SOB Review of Systems Review of Systems: All systems reviewed & are unremarkable except as noted in Subjective Physical Exam Physical Exam: General- No acute distress Head- atraumatic Eyes- PERRL, EOMI, ENT- oropharynx clear Neck- supple, no JVD Lungs- clear to auscultation Heart- regular rhythm; no murmur Abdomen- normal bowel sounds, soft, nontender Extremities- no calf tenderness Neuro- alert, oriented x 3; PERRL, EOMI; no facial palsy; no dysarthria Skin- warm & dry Results & Data Results & Data ([facility]) Vital Signs (Past 12 Hours) Vital Signs Temp Pulse Pulse Resp BP Pulse Ox 04/20/21 23:19 36.7 C 66 18 107/69 95 04/20/21 20:06 36.8 C 76 20 135/81 96 04/20/21 16:45 37.6 C H 76 19 131/57 L 98 04/20/21 15:30 68 04/20/21 15:27 98 04/20/21 11:45 37.6 C H 80 18 134/57 L 97
[2021-04-21 06:53] LABS: Basophils # (auto) 0.01 K/uL (0-0.2); Basophils % (auto) 0.1 %; Eosinophils # (auto) 0.01 K/uL (0-0.5); Eosinophils % (auto) 0.1 %; Hemoglobin 13.6 g/dL (12.0-16.0); Immature Granulocytes # (auto) 0.01 K/uL (0.00-0.02); Immature Granulocytes % (auto) 0.1 %; Lymphocytes # (auto) 2.59 K/uL (1.2-3.4); Lymphocytes % (auto) 33.8 %; Mean Corpuscular Hemoglobin 28.9 pg (25-34); Mean Corpuscular Volume 85.1 fL (80-100); Mean Platelet Volume 9.4 fL (7.4-10.4); Monocytes # (auto) 0.95 K/uL (0.11-0.59); Monocytes % (auto) 12.4 %; Neutrophils # (auto) 4.09 K/uL (1.4-6.5); Neutrophils % (auto) 53.5 %; Platelet Count 387 K/uL (130-400); RDW Coefficient of Variation 14.3 % (11.5-14.5); RDW Standard Deviation 44.5 fL (36.4-46.3); White Blood Count 7.66 K/uL (4.8-10.8)
[2021-04-21 07:12] LABS: BUN Creatinine Ratio 33.3 (10-20); Calcium 8.6 mg/dl (8.5-10.1); Creatinine Clr Calc Pharmacy 68.9 ml/min; Est GFR (African American) 113.2 ml/min; Est GFR (Non-African American) 97.6 ml/min; Potassium 3.6 mmol/L (3.5-5.1)
[2021-04-21] MEDS: VALSARTAN 80 MG TAB PO SCH (08:22)
[2021-04-21] MEDS: ASPIRIN 81 MG ECTAB PO SCH (08:22)
[2021-04-21] MEDS: SIMVASTATIN 40 MG TAB PO SCH (21:30)
[2021-04-21] MEDS: ENOXAPARIN INJ 40 MG/0.4 ML SYR SQ SCH (21:30)
--- NOTE | 2021-04-21 23:11 | Hospitalist Progress Note ---
Date of Service April 21, 2021 Assessment & Plan (1) Expressive aphasia: Plan: Present on admission with difficulty to speak Possible related to COVID 19 CT head showed no acute intracranial abnormality MRI showed no acute finding Echo showed no regional wall motion abnormality. a small PFO is present. Mild right to left interatrial shunt. EF greater than 70% Neuro on board recommended aspirin 81mg. Clinically stable (2) COVID-19: Plan: Tested positive for COVID-19 Unvaccinated Does not meet criteria for COVID-19 therapy with dexamethasone and remdesivir since pt saturated well on RA and denies any SOB. Starting to cough - will add guaifenesin Continue monitor closely (3) Hypertension: Plan: -Continue valsartan (4) DVT prophylaxis: Plan: -SQ Lovenox Admission and Anticipated Discharge Date Admission Date: April 19, 2021 Subjective Pt was seen and examined for follow up of aphasia Lying in bed with no acute distress Pt said that she started to cough this morning She spiked a fever this morning Denies any chest pain, palpitation and SOB Review of Systems Review of Systems: All systems reviewed & are unremarkable except as noted in Subjective Physical Exam Physical Exam: General- No acute distress Head- atraumatic Eyes- PERRL, EOMI, ENT- oropharynx clear Neck- supple, no JVD Lungs- No wheezing Heart- regular rhythm; no murmur Abdomen- normal bowel sounds, soft, nontender Extremities- no calf tenderness Neuro- alert, oriented x 3; PERRL, EOMI; no facial palsy; no dysarthria Skin- warm & dry Results & Data Results & Data ([facility]) Vital Signs (Past 12 Hours) Vital Signs Temp Pulse Pulse Resp BP BP Pulse Ox 04/21/21 19:42 37.1 C 76 20 124/64 97 04/21/21 15:53 36.4 C L 73 20 129/73 99 04/21/21 15:25 68 04/21/21 11:28 36.7 C 75 18 109/64 97
[2021-04-22 06:51] LABS: Basophils # (auto) 0.03 K/uL (0-0.2); Basophils % (auto) 0.4 %; Hematocrit (blood only) 40.6 % (37-47); Hemoglobin 13.7 g/dL (12.0-16.0); Immature Granulocytes # (auto) 0.01 K/uL (0.00-0.02); Immature Granulocytes % (auto) 0.1 %; Lymphocytes # (auto) 2.66 K/uL (1.2-3.4); Lymphocytes % (auto) 35.5 %; Mean Corpuscular Hemoglobin 28.7 pg (25-34); Mean Corpuscular Hgb Conc 33.7 g/dL (32-36); Mean Corpuscular Volume 85.1 fL (80-100); Mean Platelet Volume 9.6 fL (7.4-10.4); Monocytes # (auto) 0.83 K/uL (0.11-0.59); Monocytes % (auto) 11.1 %; Neutrophils # (auto) 3.96 K/uL (1.4-6.5); Neutrophils % (auto) 52.9 %; Platelet Count 352 K/uL (130-400); RDW Standard Deviation 43.8 fL (36.4-46.3); Red Blood Count 4.77 M/uL (4.2-5.4); White Blood Count 7.49 K/uL (4.8-10.8)
[2021-04-22 07:12] LABS: BUN Creatinine Ratio 31.5 (10-20); Calcium 8.3 mg/dl (8.5-10.1); Creatinine Clr Calc Pharmacy 68.9 ml/min; Est GFR (African American) 113.2 ml/min; Est GFR (Non-African American) 97.6 ml/min; Potassium 3.5 mmol/L (3.5-5.1)
[2021-04-22] MEDS: VALSARTAN 80 MG TAB PO SCH (09:05)
[2021-04-22] MEDS: ASPIRIN 81 MG ECTAB PO SCH (09:09)
[2021-04-22] MEDS ORDERED: guaiFENesin 200 MG TAB PO PRN (09:25)
--- NOTE | 2021-04-22 15:04 | Discharge Summary ---
Date of Service April 22, 2021 Admission HPI Per Admitting Provider 66-year-old female with PMH HTN, HLD, tobacco use disorder, and other problems listed below who presents to the ED by referral of PCP office for evaluation of altered mental status and speech difficulty. Patient is a poor historian. History is obtained from chart review. Patient's boyfriend's daughter took the patient today to be evaluated at PCP office with complaints of increased confusion and difficulty speaking. Symptoms have been going on for the past 4 days. At the time my exam, patient reports that she has been feeling fatigued over the past few days, otherwise offers no other complaints. She does have a mild expressive aphasia/word finding. In the ED, patient is hemodynamically stable. Head CT is negative for acute findings. Patient has incidentally tested positive for COVID-19. No respiratory symptoms reported. Patient is hemodynamically stable. She was given a full dose aspirin. Admission Exam Per Admitting Provider Constitutional: + thin; no acute distress Vitals as abo ve Eyes: PERRL, conjunctivae normal, anicteric sclerae ENMT: external ear and nose normal, oropharynx normal Respiratory: normal respiratory effort; no respiratory distress Auscultation: + diminished lung sounds Cardiovascular: Rate/Rhythm: regular rate and regular rhythm Vessels: normal peripheral pulses Extremities: no edema Gastrointestinal (Abdomen): normal bowel sounds, soft, nontender, no hepatosplenomegaly Musculoskeletal: no cyanosis or clubbing, extremities motor strength 5/5 Skin: no rashes, warm and dry Neurologic: moves all extremities; no focal motor deficits Speech / Cognition: + expressive aphasia (Word finding) Cranial Nerves: PERRL, normal accommodation, EOM intact bilaterally and normal facial strength Psychiatric: A+Ox3, euthymic affect Principal Diagnosis Expressive aphasia: COVID-19: Hypertension Discharge Exam General- No acute distress Head- atraumatic Eyes- PERRL, EOMI, ENT- oropharynx clear Neck- supple, no JVD Lungs- No wheezing Heart- regular rhythm; no murmur Abdomen- normal bowel sounds, soft, nontender Extremities- no calf tenderness Neuro- alert, oriented x 3; PERRL, EOMI; no facial palsy; no dysarthria Skin- warm & dry Discharge Data Allergies Allergy/AdvReac Type Severity Reaction Status Date / Time No Known Allergies Allergy Verified 04/19/21 15:37 Consultations 04/19/21 16:38 ED Decision to Admit Stat 04/19/21 20:44 Consult Neurology Routine Ordered Studies 04/19/21 12:10 CT head/brain wo con Stat 04/19/21 13:13 MR brain wo con Stat XR chest 1V portable CLINICAL HISTORY: AMS Covid pneumonia TECHNIQUE: Single frontal radiograph of the chest was obtained. Comparison: Comparison is made to chest one view 03/29/2014 FINDINGS: No lines and tubes are seen. The cardiomediastinal silhouette is normal. Bilateral lower lung predominant airspace opacities are seen. No evidence of pleural effusion or pneumothorax. IMPRESSION: Bilateral lower lung predominant airspace opacities are compatible with history of viral pneumonia. ACT 112: Negative or not required by law. Electronically signed by: Scott Madera M.D. 04/19/2021 1:56 PM Dictated:04/19/21 1354 Transcribed: 04/19/21 1354 MRI OF THE BRAIN WITHOUT CONTRAST CLINICAL HISTORY: Expressive aphasia. Evaluate for stroke. COMPARISON STUDY: Head CT April 19, 2021. TECHNIQUE: Utilizing a 1.5 Claudia magnet and dedicated coil, multiplanar, multiecho imaging of the brain was performed without IV contrast. FINDINGS: This exam is mildly compromised by motion artifact. There are no foci of restricted diffusion to suggest acute infarct. No acute intracranial hemorrhage, midline shift or mass effect is present. Ventricular system is unremarkable. Basal cisterns are patent. There are no extra-axial collections. Flow-voids for the major intracranial vessels are present. White matter T2 h yperintense foci suggest small vessel disease. Calvarial signal is within normal limits. IMPRESSION: 1. No acute intracranial findings. 2. Exam mildly compromised by motion artifact. ACT 112: Negative or not required by law. Electronically signed by: Carroll Avendano M.D. 04/20/2021 7:53 AM Dictated:04/20/21 0750 Transcribed: 04/20/[address] OF THE HEAD WITHOUT CONTRAST CLINICAL HISTORY: Stroke Like Symptoms COMPARISON STUDY: No previous studies for comparison. CT DOSE: 537.48 mGy.cm TECHNIQUE: Helical axial images of the head were obtained without IV contrast. Automated exposure control was utilized for the study. A dose lowering technique was utilized adhering to the principles of ALARA. FINDINGS: No acute intracranial hemorrhage, midline shift or mass effect is present. The ventricular system is unremarkable. The basal cisterns are patent. No extra-axial collections are present. Mild white matter hypodensity suggests small vessel disease. There is minimal bilateral basal ganglia calcification. There are no findings to suggest acute dural sinus thrombosis or acute territorial infarct. No significant calvarial abnormalities are present. IMPRESSION: No acute intracranial findings. ACT 112: Negative or not required by law. Electronically signed by: Carroll Avendano M.D. 04/19/2021 12:59 PM Dictated:04/19/21 1251 Transcribed: 04/19/21 1251 Hospital Course (1) Expressive aphasia: Present on admission with difficulty to speak Possible related to COVID 19 CT head showed no acute intracranial abnormality MRI showed no acute finding Echo showed no regional wall motion abnormality. a small PFO is present. Mild right to left interatrial shunt. EF greater than 70% Neuro on board recommended aspirin 81mg. Clinically stable (2) COVID-19: Tested positive for COVID-19 Unvaccinated Does not meet criteria for COVID-19 therapy with dexamethasone and remdesivir since pt saturated well on RA and denies any SOB. Starting to cough - will add guaifenesin Continue monitor closely (3) Hypertension: -Continue valsartan (4) DVT prophylaxis: -SQ Lovenox Total Time Total Time Spent Total Time Spent (In Minutes): 35 minutes Discharge Plan Discharge Items Patient Disposition: Home - Self-Care Reason For Visit: STROKE SYMPTOMS Discharge Diagnosis: Expressive aphasia: COVID-19: Hypertension: Activity: Resume your previous activity Non-emergency contact: Primary Care Provider Call non-emergency contact if: you have any medication questions, your symptoms worsen and your temperature is above 101 Follow-up/Referrals: Nathaniel Saldivar MD [Primary Care Provider] - (Date & Time 04/29/2021 2:00 PM Provider Nathaniel Saldivar MD Department [facility] ) Diet: Heart Healthy Addtl Attending Provider Instructions: Follow up with your primary care provider Dr. Saldivar on 04/29/2021 @2:00 PM at the [facility] Continue practice social distance and to wear mask Continue incentive spirometry and flutter valve Seek medical attention if you develop any shortness of breath or fever Fall precaution Home Isolation COVID-19 Instructions The following information about Home Isolation is from the CDC Website: https://www.cdc.gov/coronavirus/2019-ncov/hcp/pcgvgszt-xvinwds-mhrici.html Stay home except to get medical care People who are mildly ill with COVID-19 are able to isolate at home during their illness. You should restrict activities outside your home, except for getting medical care. Do not go to work, school, or public areas. Avoid using public transportation, ride-sharing, or taxis. Separate yourself from other people and animals in your home People: As much as possible, you should stay in a specific room and away from other people in your home. Also, you should use a separate bathroom, if available. Animals: You should restrict contact with pets and other animals while you are sick with COVID-19, just like you would around other people. Although there have not been reports of pets or other animals becoming sick with COVID-19, it is still recommended that people sick with COVID-19 limit contact with animals until more information is known about the virus. When possible, have another member of your household care for your animals while you are sick. If you are sick with COVID-19, avoid contact with your pet, including petting, snuggling, being kissed or licked, and sharing food. If you must care for your pet or be around animals while you are sick, wash your hands before and after you interact with pets and wear a face mask. Call ahead before visiting your doctor If you have a medical appointment, call the healthcare provider and tell them that you have or may have COVID-19. This will help the healthcare providers office take steps to keep other people from getting infected or exposed. Wear a face mask You should wear a face mask when you are around other people (e.g., sharing a room or vehicle) or pets and before you enter a healthcare providers office. If you are not able to wear a face mask (for example, because it causes trouble breathing), then people who live with you should not stay in the same room with you, or they should wear a face mask if they enter your room. Cover your coughs and sneezes Cover your mouth and nose with a tissue when you cough or sneeze. Throw used tissues in a lined trash can. Immediately wash your hands with soap and water for at least 20 seconds or, if soap and water are not available, clean your hands with an alcohol-based hand tip cutter that contains at least 60% alcohol. Clean your hands often Wash your hands often with soap and water for at least 20 seconds, especially after blowing your nose, coughing, or sneezing; going to the bathroom; and before eating or preparing food. If soap and water are not readily available, use an alcohol-based hand tip cutter with at least 60% alcohol, covering all surfaces of your hands and rubbing them together until they feel dry. Soap and water are the best option if hands are visibly dirty. Avoid touching your eyes, nose, and mouth with unwashed hands. Avoid sharing personal household items You should not share dishes, drinking glasses, cups, eating utensils, towels, or bedding with other people or pets in your home. After using these items, they should be washed thoroughly with soap and water. Clean all high-touch surfaces everyday High touch surfaces include counters, tabletops, doorknobs, bathroom fixtures, toilets, phones, keyboards, tablets, and bedside tables. Also, clean any surfaces that may have blood, stool, or body fluids on them. Use a household cleaning spray or wipe, according to the label instructions. Labels contain instructions for safe and effective use of the cleaning product including precautions you should take when applying the product, such as wearing gloves and making sure you have good ventilation during use of the product. Monitor your symptoms Seek prompt medical attention if your illness is worsening (e.g., difficulty breathing).Beforeseeking care, call your healthcare provider and tell them that you have, or are being evaluated for, COVID-19. Put on a face mask before you enter the facility. These steps will help the healthcare providers office to keep other people in the office or waiting room from getting infected or exposed. Ask your healthcare provider to call the local or state health department. Persons who are placed under active monitoring or facilitated self- monitoring should follow instructions provided by their local health department or occupational health professionals, as appropriate. When working with your local health department check their available hours. If you have a medical emergency and need to call 911, notify the dispatch personnel that you have, or are being evaluated for COVID-19. If possible, put on a face mask before emergency medical services arrive. Discontinuing home isolation Patients with confirmed COVID-19 should remain under home isolation precautions until the risk of secondary transmission to others is thought to be low. The decision to discontinue home isolation precautions should be made on a exwh-ot-tztl basis, in consultation with healthcare providers and state and local health departments. Coronavirus disease 2019 (COVID-19) is a virus that causes a respiratory illness. It is caused by a coronavirus called 2019 novel coronavirus (2019- nCoV). There are many types of coronavirus. Coronaviruses are a very common cause of bronchitis. They may sometimes cause lung infection(pneumonia). Symptoms can range from mild to severe respiratory illness. These viruses are also foundin some animals. COVID-19 was first found in people in [facility], in late 2018. In 2019, several cases of COVID-19 have been confirmed in the [place] Public health officials are working to find the source. How the virus spreads is not yet fully known. It may be spread through droplets of fluid that a person coughs or sneezes into the air. It may be spread if you touch a surface with virus on it, such as a handle or object, and then touch your mouth. What are the symptoms of COVID-19? Some people have no symptoms or mild symptoms. Symptoms may appear 2 to 14 days after contact with the virus. Symptoms can include: Fever Coughing Trouble breathing What are possible complications from COVID-19? In many cases, this virus can cause infection (pneumonia) in both lungs. In some cases, this can cause . How is COVID-19 diagnosed? Your healthcare provider will ask about your symptoms. He or she will also ask about your recent travel and contact with sick people. Testing for the virus is only done through the CDC. If yourhealthcare provider thinks you may have COVID- 19, he or she will work with your local health department and the CDC on testing. Follow all instructions from your healthcare provider. COVID-19 is diagnosed by: Nasal and throat swab. A cotton-tipped swab is wiped inside your nose or throat. This is done to check for viruses in your nasal mucus. Sputum culture. A small sample of mucus coughed from your lungs (sputum) is collected if you have a cough. It is checked for the virus. How is COVID-19 treated? There is currently no medicine to treat the virus. Treatment is done to help your body while it fights the virus. This is known as supportive care. Supportive care may include: Pain medicine. These include acetaminophen and ibuprofen. They are used to help ease pain and reduce fever. Bed rest. This helps your body fight the illness. For severe illness, you may need to stay in the hospital. Care during severe illness may include: IV (intravenous) fluids.These are given through a vein to help keep your body hydrated. Oxygen. Supplemental oxygen or ventilation with a breathing machine (ventilator) may be given. This is done to keep enough oxygen in your body. Are you at risk for COVID-19? If youve been to a place where people have been sick with this virus, you are at risk for infection. You are at risk if you: Recently traveled to an affected area Had contact with a sick person who recently traveled to this area Had contact with a person who was diagnosed with COVID-19 How can COVID-19 be prevented? There is no vaccine yet. The best prevention is to not have contact with the virus. The CDC advises that people should not travel to areas where there are COVID-19 outbreaks right now for any reason that is not urgent. To help prevent spreading the infection, wash your hands often, or use an alcohol-basedhand tip cutter. If you are in an area with COVID-19: Wash your hands often. Or use an alcohol-based hand tip cutter often. Only touch your eyes, nose, or mouth with clean hands. Dont have contact with people who are sick. Follow local instructions about being in public. For example, you may be told to not use public transport for a period of time. Stay away from markets that have live or animals. Wash your hands after touching any animals. Don't touch animals that may be sick. Dont share eating or drinking tools with sick people. Dont kiss someone who is sick. Clean surfaces often with disinfectant. If you were in an area with COVID-19 in the last 14 days: Call your healthcare provider. He or she can talk with local health staff to see what action may be needed. Follow all instructions from your provider. Take your temperature every morning and evening for at least 14 days. This is to check for fever. Keep a record of the readings. Keep watch for symptoms of the virus. Tell your provider right away if you have symptoms. If you were in an area with COVID-19 and have a fever or other symptoms: Dont panic. Keep in mind that other illnesses can cause similar symptoms. Stay away from work, school, and public places. Limit physical contact with family members. Don't kiss anyone or share eating or drinking utensils. Clean surfaces you touch with disinfectant. This is to help prevent the virus from spreading. Call your healthcare provider. Explain that you have been exposed to COVID-19 and have symptoms. Do this before going to any hospital. Wait for instructions. Keep in mind that healthcare staff may wear protective equipment such as mas ks, gowns, gloves, and eye protection. You may be put in a separate room. This is to prevent the possible virus from spreading. Tell the healthcare staff about recent travel. This includes local travel on public transport. Staff may need to find other people you have been in contact with. Follow all instructions the healthcare staff give you. If you have been diagnosed with COVID-19 Follow all instructions from your healthcare provider. Dont leave your home, except to get medical care. Call your healthcare providers office before going. They can prepare and give you instructions. This will help prevent the virus from spreading. Dont go to work, school, or public areas. Dont use public transport or taxis. Stay away from other people in your home. Have them wear face masks around you. Dont share household items or food. Wear a face mask if you can. This includes at home or in a medical facility. Cover your face with a tissue when you cough or sneeze. Throw the tissue away. Wash your hands. Wash your hands often. Caregivers should: Follow all instructions from healthcare staff. Wear a face mask and protective clothing as advised. Wash hands often. Keep track of the sick persons symptoms. Clean surfaces, fabrics, and laundry thoroughly. Keep other people away from the sick person. When to call your healthcare provider Call your healthcare provider: If youve recently traveled and have symptoms If you have been diagnosed with COVID-19 and your symptoms are worse To learn more To find out more about COVID-19, visit the CDC website at www.cdc.gov/coronavirus/2019-ncov/index.html. [employer]. [address] [place] [address]. All rights reserved. This information is not intended as a substitute for professional medical care. Always follow your healthcare professional's instructions. This information has been adapted from [employer] Pending Studies at Discharge: No Stand-Alone Forms: My [facility], Smoking Cessation Medications and DC Order Prescriptions: New aspirin 81 mg Tablet,Delayed Release (Dr/Ec) 81 mg PO QAM 30 Days Qty: 30 RF: 0 guaifenesin 200 mg Tablet 200 mg PO Q6H PRN (Reason: cough) Qty: 30 RF: 0 Continued simvastatin [Zocor] 40 mg Tablet 40 mg PO HS RF: 0 valsartan 40 mg tablet 40 mg PO QAM RF: 0 Discharge Orders: Discharge Order (Routine); Ordered 04/22/21 Ordered By: Beto Luna/Other Patient Handouts: A1C Admission Data Admit Date/Time: 04/19/21 16:52 Attending Provider: Beto Salmeron Admit Provider: Richy Mccartney Primary Care Provider: Nathaniel Saldivar Other Providers: Richy Mccartney ; Tio Macdonald Other Interventions: Discharge Summary Assessment (RN) Last Done: 04/22/21 15:32
== END 2021-04-22 15:50 | disposition home or self-care (01) | DRG 91 ==
LOC: ED 11:54 → 2S 16:52 → SUATTDRO 16:52 → 2S 19:45

== ENCOUNTER 2023-08-22 19:51 | Inpatient (IN) ==
--- NOTE | 2023-08-22 20:00 | Emergency Department Note ---
ED Provider Note History of Present Illness Chief Complaint: Dizziness Stated Complaint: AB PAIN, CHILLS Time Seen by Provider: 08/22/23 19:59 This is a 68-year-old female with a history of smoking, hypertension, hyperlipidemia, on metformin, accompanied by her caregiver, who presents to the emergency department via EMS secondary to an episode of dizziness that occurred at 6:00 PM this evening while eating dinner at a adventism function. Her caregiver also thinks she is having some slurred speech. Symptoms began relatively acutely and the patient states that she got up and tried to walk and felt very dizzy, like she was going to fall over. She did not feel lightheaded or like she was going to pass out. She had some nausea but did not vomit. No headache. Someone else at the adventism function called EMS. Glucose was in the low 300s on fingerstick. She was not brought to the emergency department as a stroke alert. Patient states that her dizziness has improved now. She has a little bit of shortness of breath though has a hard time discerning whether this is current or when she was up moving around. She denies any chest pain. She also states that her arms feel little heavy and she has some tingling in both of her arms. She denies any weakness. Currently patient denies any vision changes, no abdominal pain. She has never had a heart attack or stroke before. Is not on any blood thinners. Patient was admitted to this facility April 2021 for for somewhat similar symptoms, was having altered mental status and speech difficulty and generalized weakness for 4 days. Brain MRI negative. She incidentally tested positive for COVID-19 at that visit. Patient states she does not have diabetes, she is unsure why she takes metformin. She does not use insulin. She is here with her caregiver who states that she helps the patient make phone calls and perform activities of daily living, she is unsure why the patient cannot perform these activities. She does this on a volunteer basis. She does agree that the patient seems somewhat confused right now. Home Medications Medication Instructions Recorded Confirmed Type albuterol sulfate 90 mcg/actuation 2 puff inhalation QID 08/22/23 08/22/23 History aerosol inhaler (Ventolin HFA) amlodipine 10 mg tablet 10 mg PO DAILY 08/22/23 08/22/23 History atorvastatin 20 mg tablet 20 mg PO QAM 08/22/23 08/22/23 History latanoprost 0.005 % eye drops 1 drp OPB QPM 08/22/23 08/22/23 History metformin 500 mg tablet,extended 500 mg PO QAM 08/22/23 08/22/23 History release 24 hr mirtazapine 15 mg tablet 15 mg PO HS 08/22/23 08/22/23 History valsartan 80 mg tablet 80 mg PO QAM 08/22/23 08/22/23 History Allergies Allergy/AdvReac Type Severity Reaction Status Date / Time No Known Allergies Allergy Verified 04/19/21 15:37 Past Med/Surg History Problem List (Updated 08/23/23 @ 14:24 by Jarrett Dang MD) Acute ischemic stroke Encephalopathy Episode of dizziness (Acute) Leukocytosis (Acute) Medical History COVID-19 DVT prophylaxis Tobacco use disorder Osteoporosis Hyperlipidemia Hypertension Surgical History History of tubal ligation History of cholecystectomy Family History Father Alcoholism Mother Alcoholism Social History Smoking Status: Current every day smoker Tobacco Type: Cigarettes Cigarettes Per Day: 10; Second Hand Exposure: No; Do You Dip or Chew Tobacco: No; Tobacco Cessation Education Requested by Patient: No Hx Alcohol Use: No Hx Substance Use: No Preferred Language: Maori Communication Ability: Effective 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 Beliefs That Will Affect Care: None marital status: Current Living Situation: Alone Current Living Situation Comment: "friend" current occupational status: unemployed How many Children do You have: 4 Other Information That Helps Us Care for You: No Feels Safe at Home: Yes Safety Concerns: Feels Safe At This Time Assistive Devices: None Physical Exam Vital Signs Vital Signs - 24 hr 08/22/23 19:41 08/22/23 19:50 08/22/23 20:09 Temperature 98.1 F Temperature Source Oral Pulse Rate 108 H 102 H Pulse Rate [Apical] 93 H Pulse Rate from SpO2 Sensor Pulse Rhythm Regular Pulse Rhythm [Apical] Regular Pulse Strength Normal Pulse Strength [Apical] Normal Respiratory Rate 16 16 Respiratory Effort / Characteristics Non-Labored Non-Labored Respiratory Depth Normal Normal Respiratory Pattern Regular Regular Blood Pressure 213/89 H Blood Pressure [Right Arm] 178/95 H Blood Pressure Mean 130 Blood Pressure Mean [Right Arm] 122 Pulse Oximetry 97 97 Oxygen Delivery Method Room Air Room Air Sepsis Recent Fever Within 48 Hours No Sepsis New/Unexplained Change in Mental Status Yes Sepsis Action Taken by Nursing No Action Required 08/22/23 21:01 08/22/23 21:11 08/22/23 21:11 Temperature Temperature Source Pulse Rate 100 H Pulse Rate [Apical] Pulse Rate from SpO2 Sensor 99 H Pulse Rhythm Pulse Rhythm [Apical] Pulse Strength Pulse Strength [Apical] Respiratory Rate 18 Respiratory Effort / Characteristics Respiratory Depth Respiratory Pattern Blood Pressure 166/93 H Blood Pressure [Right Arm] Blood Pressure Mean 141 Blood Pressure Mean [Right Arm] Pulse Oximetry 95 96 Oxygen Delivery Method Room Air Sepsis Recent Fever Within 48 Hours Sepsis New/Unexplained Change in Mental Status Sepsis Action Taken by Nursing 08/22/23 21:15 08/22/23 21:15 08/22/23 21:20 Temperature Temperature Source Pulse Rate 93 H 91 H Pulse Rate [Apical] Pulse Rate from SpO2 Sensor 92 H Pulse Rhythm Pulse Rhythm [Apical] Pulse Strength Pulse Strength [Apical] Respiratory Rate 13 14 Respiratory Effort / Characteristics Respiratory Depth Respiratory Pattern Blood Pressure 151/72 H Blood Pressure [Right Arm] Blood Pressure Mean 115 Blood Pressure Mean [Right Arm] Pulse Oximetry 96 Oxygen Delivery Method Sepsis Recent Fever Within 48 Hours Sepsis New/Unexplained Change in Mental Status Sepsis Action Taken by Nursing 08/22/23 21:31 08/22/23 21:32 08/22/23 21:32 Temperature Temperature Source Pulse Rate 94 H Pulse Rate [Apical] Pulse Rate from SpO2 Sensor 97 H 96 H Pulse Rhythm Pulse Rhythm [Apical] Pulse Strength Pulse Strength [Apical] Respiratory Rate 20 Respiratory Effort / Characteristics Respiratory Depth Respiratory Pattern Blood Pressure 174/81 H Blood Pressure [Right Arm] Blood Pressure Mean 139 Blood Pressure Mean [Right Arm] Pulse Oximetry 96 97 Oxygen Delivery Method Sepsis Recent Fever Within 48 Hours Sepsis New/Unexplained Change in Mental Status Sepsis Action Taken by Nursing 08/22/23 21:40 08/22/23 21:45 08/22/23 21:45 Temperature Temperature Source Pulse Rate 89 87 Pulse Rate [Apical] Pulse Rate from SpO2 Sensor 88 88 Pulse Rhythm Pulse Rhythm [Apical] Pulse Strength Pulse Strength [Apical] Respiratory Rate 16 18 Respiratory Effort / Characteristics Respiratory Depth Respiratory Pattern Blood Pressure 168/78 H Blood Pressure [Right Arm] Blood Pressure Mean 128 Blood Pressure Mean [Right Arm] Pulse Oximetry 95 95 Oxygen Delivery Method Sepsis Recent Fever Within 48 Hours Sepsis New/Unexplained Change in Mental Status Sepsis Action Taken by Nursing 08/22/23 21:50 08/22/23 22:00 08/22/23 22:00 Temperature Temperature Source Pulse Rate 89 90 Pulse Rate [Apical] Pulse Rate from SpO2 Sensor 89 88 Pulse Rhythm Pulse Rhythm [Apical] Pulse Strength Pulse Strength [Apical] Respiratory Rate 19 20 Respiratory Effort / Characteristics Respiratory Depth Respiratory Pattern Blood Pressure 161/77 H Blood Pressure [Right Arm] Blood Pressure Mean 131 Blood Pressure Mean [Right Arm] Pulse Oximetry 96 95 Oxygen Delivery Method Sepsis Recent Fever Within 48 Hours Sepsis New/Unexplained Change in Mental Status Sepsis Action Taken by Nursing 08/22/23 22:10 08/22/23 22:15 08/22/23 22:15 Temperature Temperature Source Pulse Rate 83 89 Pulse Rate [Apical] Pulse Rate from SpO2 Sensor 84 89 Pulse Rhythm Pulse Rhythm [Apical] Pulse Strength Pulse Strength [Apical] Respiratory Rate 20 32 H Respiratory Effort / Characteristics Respiratory Depth Respiratory Pattern Blood Pressure 149/78 H Blood Pressure [Right Arm] Blood Pressure Mean 127 Blood Pressure Mean [Right Arm] Pulse Oximetry 95 96 Oxygen Delivery Method Sepsis Recent Fever Within 48 Hours Sepsis New/Unexplained Change in Mental Status Sepsis Action Taken by Nursing 08/22/23 22:20 08/22/23 22:30 08/22/23 22:30 Temperature Temperature Source Pulse Rate 87 88 Pulse Rate [Apical] Pulse Rate from SpO2 Sensor 87 88 Pulse Rhythm Pulse Rhythm [Apical] Pulse Strength Pulse Strength [Apical] Respiratory Rate 15 21 Respiratory Effort / Characteristics Respiratory Depth Respiratory Pattern Blood Pressure 145/74 H Blood Pressure [Right Arm] Blood Pressure Mean 118 Blood Pressure Mean [Right Arm] Pulse Oximetry 96 96 Oxygen Delivery Method Sepsis Recent Fever Within 48 Hours Sepsis New/Unexplained Change in Mental Status Sepsis Action Taken by Nursing 08/22/23 22:40 08/22/23 22:45 08/22/23 22:45 Temperature Temperature Source Pulse Rate 83 87 Pulse Rate [Apical] Pulse Rate from SpO2 Sensor 83 87 Pulse Rhythm Pulse Rhythm [Apical] Pulse Strength Pulse Strength [Apical] Respiratory Rate 21 21 Respiratory Effort / Characteristics Respiratory Depth Respiratory Pattern Blood Pressure 171/87 H Blood Pressure [Right Arm] Blood Pressure Mean 135 Blood Pressure Mean [Right Arm] Pulse Oximetry 95 96 Oxygen Delivery Method Sepsis Recent Fever Within 48 Hours Sepsis New/Unexplained Change in Mental Status Sepsis Action Taken by Nursing 08/22/23 22:50 08/22/23 23:00 08/22/23 23:00 Temperature Temperature Source Pulse Rate 89 83 Pulse Rate [Apical] Pulse Rate from SpO2 Sensor 89 82 Pulse Rhythm Pulse Rhythm [Apical] Pulse Strength Pulse Strength [Apical] Respiratory Rate 16 17 Respiratory Effort / Characteristics Respiratory Depth Respiratory Pattern Blood Pressure 149/79 H Blood Pressure [Right Arm] Blood Pressure Mean 122 Blood Pressure Mean [Right Arm] Pulse Oximetry 97 96 Oxygen Delivery Method Sepsis Recent Fever Within 48 Hours Sepsis New/Unexplained Change in Mental Status Sepsis Action Taken by Nursing 08/22/23 23:10 Temperature Temperature Source Pulse Rate 82 Pulse Rate [Apical] Pulse Rate from SpO2 Sensor 82 Pulse Rhythm Pulse Rhythm [Apical] Pulse Strength Pulse Strength [Apical] Respiratory Rate 21 Respiratory Effort / Characteristics Respiratory Depth Respiratory Pattern Blood Pressure Blood Pressure [Right Arm] Blood Pressure Mean Blood Pressure Mean [Right Arm] Pulse Oximetry 96 Oxygen Delivery Method Sepsis Recent Fever Within 48 Hours Sepsis New/Unexplained Change in Mental Status Sepsis Action Taken by Nursing CONSTITUTIONAL: Well developed, well nourished, slightly anxious, slightly disheveled, nontoxic HEAD: Normocephalic, atraumatic. EYES: PERRL, conjunctivae normal, extraocular muscles intact. Nystagmus ENMT: External ears normal. Nose with normal external appearance, no congestion. Oral mucous membranes dry. No fasciculations NECK: Full active range of motion. LYMPHATIC: No cervical adenopathy RESPIRATORY: Breathing unlabored and symmetric. Lungs clear to auscultation bilaterally. No wheeze, rales, or rhonchi. CARDIOVASCULAR: Regular rate and rhythm. No murmurs, rubs, or gallops. ABDOMEN: Soft, nontender, no peritonitis. No masses. MUSCULOSKELETAL: Moves all extremities at all joints without pain or difficulty. No cyanosis or edema. SKIN: [place], warm, dry. NEUROLOGIC: Awake, alert, oriented to person, place, year, and month. Several episodes of difficulty finding 1 word at the end of her sentence, otherwise speech is normal. Cranial nerves II through XII intact licensed prosthetist/orthotist strength 5+ bilaterally. No sensory deficits in bilateral upper or lower extremities. Coordination intact in bilateral upper and lower extremities. Patient able to ambulate in a straight line. She is able to ambulate backwards on her tippy toes in a straight line. PSYCHIATRIC: Appropriate. Normal affect Course Administered Medications Atorvastatin Calcium (Atorvastatin 40 Mg Tab) 40 mg PO QAM CLAUDETTE Stop: 09/22/23 08:59 Last Admin: 08/23/23 10:21 Dose: 40 mg Documented By: GENO Doxycycline Hyclate (Doxycycline Hyclate 100 Mg Cap) 100 mg PO BID CLAUDETTE Stop: 08/30/23 20:59 Last Admin: 08/23/23 20:24 Dose: 100 mg Documented By: MELVA Enoxaparin Sodium (Enoxaparin Inj 40 Mg/0.4 Ml Syr) 40 mg SQ QAM [facility] Stop: 09/22/23 08:59 Last Admin: 08/23/23 10:21 Dose: 40 mg Documented By: GENO Ceftriaxone Sodium (Rocephin) 2,000 mg in 50 mls @ 100 mls/hr IV Q24H CLAUDETTE Stop: 09/02/23 20:59 Last Admin: 08/23/23 20:35 Dose: 100 mls/hr Documented By: MELVA Insulin Aspart (Insulin Aspart Per Unit Charge) 0 units SC ACHS [facility] Stop: 09/22/23 11:29 Last Admin: 08/23/23 20:32 Dose: 1 units Documented By: MELVA Co-signed By: [id number] Admin: 08/23/23 18:33 Dose: 2 units Documented By: BLU Co-signed By: MES Admin: 08/23/23 16:59 Dose: Not Given Documented By: GENO Insulin Glargine (Lantus Per Unit Charge) 5 units SQ HS [facility]ETTE Stop: 09/22/23 20:59 Last Admin: 08/23/23 20:32 Dose: 5 units Documented By: MELVA Co-signed By: [id number] Latanoprost (Latanoprost 0.005% Op Soln 2.5 Ml Btl) 1 drops OPB QPM [facility]ETTE Stop: 09/22/23 20:59 Last Admin: 08/23/23 20:23 Dose: 1 drops Documented By: MELVA Miscellaneous (Remove Nicoderm Patch) 1 each N/A DAILY@[id number] [facility] Stop: 09/22/23 08:58 Last Admin: 08/23/23 17:56 Dose: Not Given Documented By: AMS Nicotine (Nicotine 21 Mg/24 Hr Tdsy) 1 patch TD HS CLAUDETTE Stop: 09/22/23 20:59 Last Admin: 08/23/23 20:22 Dose: 1 patch Documented By: Admin: 08/23/23 01:14 Dose: 1 patch Documented By: KG Phenazopyridine HCl (Phenazopyridine Hcl 100 Mg Tab) 100 mg PO TID PRN PRN Reason: bladder pain Stop: 09/22/23 21:21 Last Admin: 08/23/23 21:47 Dose: 100 mg Documented By: CB Discontinued Medications Aspirin (Aspirin Chew 324 Mg) 324 mg PO NOW STA Stop: 08/22/23 23:51 Last Admin: 08/23/23 01:14 Dose: 324 mg Documented By: KG Sodium Chloride (Nss) 1,000 mls @ 999 mls/hr IV .Q1H1M ONE Stop: 08/22/23 21:26 Last Infusion: 08/23/23 02:15 Dose: Infused Documented By: Admin: 08/22/23 20:42 Dose: 999 mls/hr Documented By: KG Ceftriaxone Sodium (Rocephin) 2,000 mg in 50 mls @ 100 mls/hr IV NOW STA Stop: 08/22/23 23:21 Last Infusion: 08/23/23 02:15 Dose: Infused Documented By: Admin: 08/22/23 23:57 Dose: 100 mls/hr Documented By: KG Doxycycline Hyclate 100 mg/ (Dextrose) 100 mls @ 50 mls/hr IV NOW STA Stop: 08/23/23 01:49 Last Infusion: 08/23/23 03:32 Dose: Infused Documented By: Admin: 08/23/23 01:12 Dose: 50 mls/hr Documented By: KG Magnesium Sulfate/Dextrose (Magnesium Sulfate / D5w) 1 gm in 100 mls @ 50 mls/hr IV ONE ONE Stop: 08/23/23 02:11 Last Infusion: 08/23/23 03:32 Dose: Infused Documented By: Admin: 08/23/23 01:14 Dose: 50 mls/hr Documented By: KG Insulin Aspart (Insulin Aspart Per Unit Charge) 0 units SC Q6 [facility]TE Stop: 09/22/23 00:14 Last Admin: 08/23/23 06:30 Dose: Not Given Documented By: Admin: 08/23/23 01:40 Dose: Not Given Documented By: KG Insulin Glargine (Lantus Per Unit Charge) 5 units SQ NOW STA Stop: 08/23/23 00:12 Last Admin: 08/23/23 03:03 Dose: Not Given Documented By: ELLYN Ioversol (Optiray 320 125ml) 119 ml IV ONCE ONE Stop: 08/22/23 21:06 Last Admin: 08/22/23 21:05 Dose: 119 ml Documented By: MELI Ioversol (Optiray 320 125ml) 125 ml IV ONCE ONE Stop: 08/22/23 23:31 Last Admin: 08/22/23 23:31 Dose: 119 ml Documented By: RADHA Potassium Chloride (Potassium Chloride Crtab 20 Meq Tabcr) 20 meq PO NOW STA Stop: 08/23/23 01:23 Last Admin: 08/23/23 03:46 Dose: Not Given Documented By: LIZ Medical Decision Making Differential Diagnosis Hyperglycemia, hypoglycemia, dehydration, electrolyte imbalance, CVA, TIA, CA, acute psychosis, UTI, pneumonia, sepsis, among other pathology Medical Records Attestation: I reviewed the patient's medical records. (Reviewed discharge summary from 2021, patient was discharged with expressive aphasia, COVID-19, and hypertension) Laboratory Data 08/23/23 04:07 08/23/23 04:07 Lab Results 08/22/23 08/22/23 08/22/23 Range/Units 20:07 20:08 20:39 WBC 23.01 H (4.8-10.8) K/ul RBC 4.69 (4.20-5.40) M/uL Hgb 13.1 (12.0-16.0) g/dl POC Hgb (12.0-16.0) g/dl Hct 39.6 (37.0-47.0) % POC Hct (37-47) % MCV 84.4 (80.0-100.0) fL MCH 27.9 (25.0-34.0) pg MCHC 33.1 (32.0-36.0) g/dL RDW Std Deviation 44.9 (36.4-46.3) fL RDW Coeff of Micah 14.6 H (11.5-14.5) % Plt Count 546 H (130-400) K/uL MPV 8.8 L (9.4-12.4) fL Immature Gran % (Auto) 0.8 % Neut % (Auto) 68.0 % Lymph % (Auto) 23.7 % [place] % (Auto) 6.8 % Eos % (Auto) 0.3 % Baso % (Auto) 0.4 % Neut # (Auto) 15.65 H (1.40-6.50) K/uL Lymph # (Auto) 5.45 H (1.20-3.40) K/uL [place] # (Auto) 1.57 H (0.11-0.59) K/uL Eos # (Auto) 0.07 (0.00-0.50) K/uL Baso # (Auto) 0.09 (0.00-0.20) K/uL Immature Gran # (Auto) 0.18 (0.01-0.20) K/uL Hypersegmented Neuts 1+ PT 9.8 (9.0-12.0) Seconds INR 0.9 (0.9-1.1) APTT 24 (21-31) Seconds PTT Ratio 0.9 POC Sodium (135-144) mmol/L Sodium 135 L (136-145) mmol/L POC Potassium (3.3-5.0) mmol/L Potassium 3.8 (3.5-5.1) mmol/L POC Chloride (101-112) mmol/L Chloride 102 (98-107) mmol/L Carbon Dioxide 22 (21-32) mmol/L POC Total CO2 (24-31) mmol/L Anion Gap 11 (3-11) POC Anion Gap (16-25) mmol/L POC BUN (7-18) mg/dl BUN 17 (6-23) mg/dl Creatinine 0.82 (0.6-1.2) mg/dl POC Creatinine (0.6-1.3) mg/dl Est Cr Clr Drug Dosing 41.8 ml/min Est GFR ( Amer) 84.6 ml/min Est GFR (Non-Af Amer) 73.0 ml/min BUN/Creatinine Ratio 20.7 H (10-20) Glucose 239 H (70-99(Fasting)) mg/dl POC Glucose 245 H (70-99) mg/dl POC Glucose (other) (70-99) mg/dl Estimat Average Glucose 148 mg/dl Hemoglobin A1c 6.8 H (4.5-5.6) % Lactate (0.4-2.0) mmol/L Calcium 9.8 (8.6-10.3) mg/dl POC Ioniz Calcium [place] (1.12-1.32) mmol/l Magnesium 1.8 (1.7-2.4) mg/dl Total Bilirubin 0.4 (0.2-1.0) mg/dl AST 18 (13-39) U/L ALT 16 (7-52) U/L Alkaline Phosphatase 87 (34-104) U/L Troponin I High Sens 6.6 (0-14) pg/ml Total Protein 7.5 (6.0-8.3) gm/dl Albumin 4.6 (3.4-5.0) gm/dl Globulin 2.9 (2.5-4.0) gm/dl Albumin/Globulin Ratio 1.6 (0.9-2) Urine Color Yellow Urine Appearance Cloudy A (Clear) Urine pH 6.5 (4.5-7.5) Ur Specific [place] 1.007 (1.000-1.030) Urine Protein Negative (Negative) Urine Glucose (UA) Trace H (Negative) Urine Ketones Negative (Negative) Urine Blood Negative (Negative) Urine Nitrite Negative (Negative) Urine Bilirubin Negative (Negative) Urine Urobilinogen Negative (Negative) Ur Leukocyte Esterase Trace H (Negative) Urine WBC (Auto) 0-5 (0-5) /hpf Urine RBC (Auto) 0-2 (0-2) /hpf U Hyaline Cast (Auto) 0-2 (0-2) /lpf U Epithel Cells (Auto) >20 H (0-2) /hpf Urine Bacteria (Auto) 2+ H (None Seen) Adenovirus (PCR) (NotDetected) B. pertussis DNA (PCR) (NotDetected) B.parapertussis DNA PCR (NotDetected) C. pneumoniae DNA (PCR) (NotDetected) Coronavirus OC43 (PCR) (NotDetected) Coronavirus HKU1 (PCR) (NotDetected) Coronavirus 229E (PCR) (NotDetected) SARS-CoV-2 (PCR) (NotDetected) Coronavirus NL63 (PCR) (NotDetected) Human Metapneumovir PCR (NotDetected) Influenza Type A (PCR) (NotDetected) Influenza Type B (PCR) (NotDetected) M. pneumoniae (PCR) (NotDetected) Parainfluenza 1 (PCR) (NotDetected) Parainfluenza 2 (PCR) (NotDetected) Parainfluenza 3 (PCR) (NotDetected) Parainfluenza 4 (PCR) (NotDetected) RSV (PCR) (NotDetected) Entero/Rhino (PCR) (NotDetected) SARS-CoV-2, RNA, NAAT (NEGATIVE) 08/22/23 08/22/23 08/22/23 Range/Units 20:46 20:55 21:23 WBC (4.8-10.8) K/ul RBC (4.20-5.40) M/uL Hgb (12.0-16.0) g/dl POC Hgb 13.3 (12.0-16.0) g/dl Hct (37.0-47.0) % POC Hct 39 (37-47) % MCV (80.0-100.0) fL MCH (25.0-34.0) pg MCHC (32.0-36.0) g/dL RDW Std Deviation (36.4-46.3) fL RDW Coeff of Micah (11.5-14.5) % Plt Count (130-400) K/uL MPV (9.4-12.4) fL Immature Gran % (Auto) % Neut % (Auto) % Lymph % (Auto) % [place] % (Auto) % Eos % (Auto) % Baso % (Auto) % Neut # (Auto) (1.40-6.50) K/uL Lymph # (Auto) (1.20-3.40) K/uL [place] # (Auto) (0.11-0.59) K/uL Eos # (Auto) (0.00-0.50) K/uL Baso # (Auto) (0.00-0.20) K/uL Immature Gran # (Auto) (0.01-0.20) K/uL Hypersegmented Neuts PT (9.0-12.0) Seconds INR (0.9-1.1) APTT (21-31) Seconds PTT Ratio POC Sodium 136 (135-144) mmol/L Sodium (136-145) mmol/L POC Potassium 3.5 (3.3-5.0) mmol/L Potassium (3.5-5.1) mmol/L POC Chloride 101 (101-112) mmol/L Chloride (98-107) mmol/L Carbon Dioxide (21-32) mmol/L POC Total CO2 23 L (24-31) mmol/L Anion Gap (3-11) POC Anion Gap 17.0 (16-25) mmol/L POC BUN 16 (7-18) mg/dl BUN (6-23) mg/dl Creatinine (0.6-1.2) mg/dl POC Creatinine 0.7 (0.6-1.3) mg/dl Est Cr Clr Drug Dosing ml/min Est GFR ( Amer) ml/min Est GFR (Non-Af Amer) ml/min BUN/Creatinine Ratio (10-20) Glucose (70-99(Fasting)) mg/dl POC Glucose (70-99) mg/dl POC Glucose (other) 240 H (70-99) mg/dl Estimat Average Glucose mg/dl Hemoglobin A1c (4.5-5.6) % Lactate 1.3 (0.4-2.0) mmol/L Calcium (8.6-10.3) mg/dl POC Ioniz Calcium [place] 1.20 (1.12-1.32) mmol/l Magnesium (1.7-2.4) mg/dl Total Bilirubin (0.2-1.0) mg/dl AST (13-39) U/L ALT (7-52) U/L Alkaline Phosphatase (34-104) U/L Troponin I High Sens (0-14) pg/ml Total Protein (6.0-8.3) gm/dl Albumin (3.4-5.0) gm/dl Globulin (2.5-4.0) gm/dl Albumin/Globulin Ratio (0.9-2) Urine Color Urine Appearance (Clear) Urine pH (4.5-7.5) Ur Specific [place] (1.000-1.030) Urine Protein (Negative) Urine Glucose (UA) (Negative) Urine Ketones (Negative) Urine Blood (Negative) Urine Nitrite (Negative) Urine Bilirubin (Negative) Urine Urobilinogen (Negative) Ur Leukocyte Esterase (Negative) Urine WBC (Auto) (0-5) /hpf Urine RBC (Auto) (0-2) /hpf U Hyaline Cast (Auto) (0-2) /lpf U Epithel Cells (Auto) (0-2) /hpf Urine Bacteria (Auto) (None Seen) Adenovirus (PCR) (NotDetected) B. pertussis DNA (PCR) (NotDetected) B.parapertussis DNA PCR (NotDetected) C. pneumoniae DNA (PCR) (NotDetected) Coronavirus OC43 (PCR) (NotDetected) Coronavirus HKU1 (PCR) (NotDetected) Coronavirus 229E (PCR) (NotDetected) SARS-CoV-2 (PCR) (NotDetected) Coronavirus NL63 (PCR) (NotDetected) Human Metapneumovir PCR (NotDetected) Influenza Type A (PCR) (NotDetected) Influenza Type B (PCR) (NotDetected) M. pneumoniae (PCR) (NotDetected) Parainfluenza 1 (PCR) (NotDetected) Parainfluenza 2 (PCR) (NotDetected) Parainfluenza 3 (PCR) (NotDetected) Parainfluenza 4 (PCR) (NotDetected) RSV (PCR) (NotDetected) Entero/Rhino (PCR) (NotDetected) SARS-CoV-2, RNA, NAAT NEGATIVE (NEGATIVE) 08/22/23 Range/Units 21:25 WBC (4.8-10.8) K/ul RBC (4.20-5.40) M/uL Hgb (12.0-16.0) g/dl POC Hgb (12.0-16.0) g/dl Hct (37.0-47.0) % POC Hct (37-47) % MCV (80.0-100.0) fL MCH (25.0-34.0) pg MCHC (32.0-36.0) g/dL RDW Std Deviation (36.4-46.3) fL RDW Coeff of Micah (11.5-14.5) % Plt Count (130-400) K/uL MPV (9.4-12.4) fL Immature Gran % (Auto) % Neut % (Auto) % Lymph % (Auto) % [place] % (Auto) % Eos % (Auto) % Baso % (Auto) % Neut # (Auto) (1.40-6.50) K/uL Lymph # (Auto) (1.20-3.40) K/uL [place] # (Auto) (0.11-0.59) K/uL Eos # (Auto) (0.00-0.50) K/uL Baso # (Auto) (0.00-0.20) K/uL Immature Gran # (Auto) (0.01-0.20) K/uL Hypersegmented Neuts PT (9.0-12.0) Seconds INR (0.9-1.1) APTT (21-31) Seconds PTT Ratio POC Sodium (135-144) mmol/L Sodium (136-145) mmol/L POC Potassium (3.3-5.0) mmol/L Potassium (3.5-5.1) mmol/L POC Chloride (101-112) mmol/L Chloride (98-107) mmol/L Carbon Dioxide (21-32) mmol/L POC Total CO2 (24-31) mmol/L Anion Gap (3-11) POC Anion Gap (16-25) mmol/L POC BUN (7-18) mg/dl BUN (6-23) mg/dl Creatinine (0.6-1.2) mg/dl POC Creatinine (0.6-1.3) mg/dl Est Cr Clr Drug Dosing ml/min Est GFR ( Amer) ml/min Est GFR (Non-Af Amer) ml/min BUN/Creatinine Ratio (10-20) Glucose (70-99(Fasting)) mg/dl POC Glucose (70-99) mg/dl POC Glucose (other) (70-99) mg/dl Estimat Average Glucose mg/dl Hemoglobin A1c (4.5-5.6) % Lactate (0.4-2.0) mmol/L Calcium (8.6-10.3) mg/dl POC Ioniz Calcium [place] (1.12-1.32) mmol/l Magnesium (1.7-2.4) mg/dl Total Bilirubin (0.2-1.0) mg/dl AST (13-39) U/L ALT (7-52) U/L Alkaline Phosphatase (34-104) U/L Troponin I High Sens (0-14) pg/ml Total Protein (6.0-8.3) gm/dl Albumin (3.4-5.0) gm/dl Globulin (2.5-4.0) gm/dl Albumin/Globulin Ratio (0.9-2) Urine Color Urine Appearance (Clear) Urine pH (4.5-7.5) Ur Specific [place] (1.000-1.030) Urine Protein (Negative) Urine Glucose (UA) (Negative) Urine Ketones (Negative) Urine Blood (Negative) Urine Nitrite (Negative) Urine Bilirubin (Negative) Urine Urobilinogen (Negative) Ur Leukocyte Esterase (Negative) Urine WBC (Auto) (0-5) /hpf Urine RBC (Auto) (0-2) /hpf U Hyaline Cast (Auto) (0-2) /lpf U Epithel Cells (Auto) (0-2) /hpf Urine Bacteria (Auto) (None Seen) Adenovirus (PCR) Not Detected (NotDetected) B. pertussis DNA (PCR) Not Detected (NotDetected) B.parapertussis DNA PCR Not Detected (NotDetected) C. pneumoniae DNA (PCR) Not Detected (NotDetected) Coronavirus OC43 (PCR) Not Detected (NotDetected) Coronavirus HKU1 (PCR) Not Detected (NotDetected) Coronavirus 229E (PCR) Not Detected (NotDetected) SARS-CoV-2 (PCR) Not Detected (NotDetected) Coronavirus NL63 (PCR) Not Detected (NotDetected) Human Metapneumovir PCR Not Detected (NotDetected) Influenza Type A (PCR) Not Detected (NotDetected) Influenza Type B (PCR) Not Detected (NotDetected) M. pneumoniae (PCR) Not Detected (NotDetected) Parainfluenza 1 (PCR) Not Detected (NotDetected) Parainfluenza 2 (PCR) Not Detected (NotDetected) Parainfluenza 3 (PCR) Not Detected (NotDetected) Parainfluenza 4 (PCR) Not Detected (NotDetected) RSV (PCR) Not Detected (NotDetected) Entero/Rhino (PCR) Not Detected (NotDetected) SARS-CoV-2, RNA, NAAT (NEGATIVE) Imaging Data Radiologist's Impression: Head CT 08/22/23 20:26 CR Exam(s): CT HEAD Without Contrast EXAM: CT Head Without Intravenous Contrast CLINICAL HISTORY: Reason for exam: dizziness, slurred speech. TECHNIQUE: Axial computed tomography images of the head/brain without intravenous contrast. CTDI is 38.6 mGy and DLP is 624.41 mGy-cm. Automated exposure control was utilized for the study. A dose lowering technique was utilized adhering to the principles of ALARA. COMPARISON: 04/19/2021 FINDINGS: Brain: Unremarkable. No hemorrhage. No significant white matter disease. No edema. Ventricles: Unremarkable. No ventriculomegaly. Bones/joints: Unremarkable. No acute fracture. Soft tissues: Unremarkable. Sinuses: Unremarkable as visualized. No acute sinusitis. Mastoid air cells: Unremarkable as visualized. No mastoid effusion. IMPRESSION: Normal head/brain CT. Communications: Call Doctor Stroke Electronically signed by: Arturo Davis MD 08/22/23 21:25 PM Head CTA 08/22/23 20:26 CR Exam(s): CTA HEAD With Contrast IV Amt: 119ml EXAM: CT Angiography Head With Intravenous Contrast CLINICAL HISTORY: Reason for exam: dizziness, slurred speech. TECHNIQUE: Axial computed tomographic angiography images of the head with intravenous contrast. CTDI is 38.6 mGy and DLP is 624.41 mGy-cm. Automated exposure control was utilized for the study. A dose lowering technique was utilized adhering to the principles of ALARA. MIP reconstructed images were created and reviewed. CONTRAST: Patient received 119ml of IV contrast COMPARISON: 04/19/2021 FINDINGS: Right internal carotid artery: No acute findings. Intracranial segment is patent with no significant stenosis. No aneurysm. Right anterior cerebral artery: Unremarkable. No occlusion or significant stenosis. No aneurysm. Right middle cerebral artery: Unremarkable. No occlusion or significant stenosis. No aneurysm. Right posterior cerebral artery: Unremarkable. No occlusion or significant stenosis. No aneurysm. Right vertebral artery: Unremarkable as visualized. Left internal carotid artery: No acute findings. Intracranial segment is patent with no significant stenosis. No aneurysm. Left anterior cerebral artery: Unremarkable. No occlusion or significant stenosis. No aneurysm. Left middle cerebral artery: Unremarkable. No occlusion or significant stenosis. No aneurysm. Left posterior cerebral artery: Unremarkable. No occlusion or significant stenosis. No aneurysm. Left vertebral artery: Unremarkable as visualized. Basilar artery: Unremarkable. No occlusion or significant stenosis. No aneurysm. IMPRESSION: Normal head CTA. Communications: Call Doctor Stroke Electronically signed by: Arturo Davis MD 08/22/23 21:29 PM Neck CTA 08/22/23 20:26 CR Exam(s): CTA NECK With Contrast IV Amt: 119ml EXAM: CT Angiography Neck With Intravenous Contrast CLINICAL HISTORY: Reason for exam: dizziness, slurred speech. TECHNIQUE: Routine carotid CT angiography protocol was performed with intravenous contrast. NASCET criteria using the distal ICAs for comparison were used for evaluation of stenoses. CTDI is 38.6 mGy and DLP is 624.41 mGy-cm. Automated exposure control was utilized for the study. A dose lowering technique was utilized adhering to the principles of ALARA. MIP reconstructed images were created and reviewed. CONTRAST: Patient received 119ml of IV contrast COMPARISON: None. FINDINGS: VASCULATURE: Right common carotid artery: Dense calcific atherotic change at the distal right common carotid artery extending into the proximal right ICA without focal stenosis. No dissection. Right internal carotid artery: See above. Right external carotid artery: Unremarkable. No occlusion. Right vertebral artery: Unremarkable. No occlusion or significant stenosis. No dissection. Left common carotid artery: Unremarkable. No occlusion or significant stenosis. No dissection. Left internal carotid artery: See below. Left external carotid artery: Unremarkable. No occlusion. Left vertebral artery: Unremarkable. No occlusion or significant stenosis. No dissection. Other vasculature: Mild calcific atherosclerotic change at the left carotid bifurcation. NECK: Bones/joints: Unremarkable. No acute fracture. Soft tissues: Unremarkable. Lung apices: Clear. CAROTID STENOSIS REFERENCE USING NASCET CRITERIA: % ICA stenosis = (1 - narrowest ICA diameter/diameter of distal cervical ICA) x 100. Mild - <50% stenosis. Moderate - 50-69% stenosis. Severe - 70-94% stenosis. Near occlusion - 95-99% stenosis. Occluded - 100% stenosis. IMPRESSION: No acute findings in the arteries of the neck. Communications: Call Doctor Stroke Electronically signed by: Arturo Davis MD 08/22/23 21:31 PM MDM Narrative 68-year-old female presents to the emergency department with an episode of dizziness that occurred 2.5 hours ago at a adventism function while eating dinner. She was also noticed to have a little bit of difficulty expressing her words. See above for further details. Nursing notes were reviewed who spoke with EMS. Fingerstick glucose was in the low 300s per EMS on their initial evaluation. Patient was not stroke alerted. On my initial evaluation, patient is slightly disheveled and is a poor historian. Her mucous membranes are dry. Fingerstick glucose 245. Blood pressure 178/95. Heart rate 102. She does have several episodes where she has difficulty completing the last word of a sentence. The remainder of her neurologic exam is reassuring as described above. I had the patient ambulate in front of me. She was able to ambulate in a straight line as well as ambulate backwards on her tippy toes without any gait instability. Case was quickly discussed with ED attending Dr. Yepez. Based on her reassuring examination, we decided not to stroke alert the patient but she was worked up aggressively. Did review notes from 2021 where the patient was admitted for expressive aphasia and was incidentally diagnosed with COVID-19. Her brain MRI was normal at that time. An IV was inserted and labs were obtained. Mucous membranes very dry, she was given 1 liter IV fluids initially. Labs: Leukocytosis at 23, seems to be a new finding. Thrombocytosis of 546. No electrolyte disturbances. No significant YOBANI. No transaminitis. Coags: normal Troponin normal [employer] upper respiratory panel negative. Lactate normal. Magnesium normal. An order was placed for continuous cardiac monitoring and at time of evaluation demonstrates a sinus rhythm in the 80s. Chest x-ray 1 view initially interpreted by myself demonstrating a possible consolidation in the left lower lobe, pending final radiology read. The patient did acknowledge that she has been coughing more over the past few days. Urinalysis trace glucose, trace leukocyte esterase, negative nitrites, greater than 20 epithelial cells and 2+ bacteria. Possible UTI. EKG: Sinus rhythm with a rate of 95. Intervals within normal limits. Normal axis. No acute ST elevation. CT head and neck demonstrates no acute findings. Patient's tachycardia and blood pressure trended in the appropriate direction. Case reviewed with ED attending Dr. Yepez. Patient was given a dose of IV Rocephin given x-ray findings and questionable urine and chest xray with a leukocytosis of 23. We decided to scan the patient's chest and abdomen for further evaluation of the leukocytosis. These are pending at time of admission. In the meantime, I discussed the case with Dr. Ambriz with [facility] hospitalist group who agrees to admit the patient for ongoing management. Impression Leukocytosis, Episode of dizziness Discharge Plan Visit Data Chief Complaint: Dizziness Stated Complaint: AB PAIN, CHILLS ED Provider: Rafael Yepez ED Midlevel Provider: Renato Fernandez Discharge Problem: Leukocytosis, Episode of dizziness Patient Disposition: Admitted As Inpatient Condition: Fair Discharge Instructions Interventions: ED Discharge Assessment Last Done: 08/23/23 17:07 Addendum August 24, 2023 00:39 HPI: The patient is a 68-year-old woman with past medical history of hypertension, hyperlipidemia who presents to the emergency department for evaluation of nausea and dizziness that occurred abruptly at 6 PM this evening in the setting of eating dinner at a adventism event. Patient was accompanied by her caregiver who thought she may have some slurred speech tonight as well. Circumstances as to why the patient has a caregiver or unknown at the time of the patient's evaluation. A/P: Stroke was not activated due to patient's improving symptoms where she was able to ambulate without difficulty per NATALYA Jim's exam. However, CT and CTA imaging was expedited. BSG is 245. WBC 23 K with neutrophil predominance though no left shift. H/H within normal limits. Platelets 546 K, nonspecific. Chemistry without metabolic acidosis. LFTs unremarkable. High-sensitivity troponin 6.6, within normal limits. UA is suspicious for infection with 2+ bacteria albeit with epithelial cells present. Respiratory viral panel/[employer] was negative. CT of the head and CTA of the head and neck were performed and were negative for ICH, ischemia or severe narrowing or occlusion of large vessels. Empiric antibiotics administered with ceftriaxone. Given the patient's leukocytosis patient was sent back to CT for CT of the chest abdomen pelvis. Patient was referred to hospital service for admission. CT imaging was subsequently negative for acute abnormalities though incidental left ovarian cyst was described. Further management per admitting team. I was consulted by the Advanced Practice Provider and was substantively involved in the patient's visit.This includes aspects of the HPI, MDM, diagnostic interpretations, and disposition/plan. I discussed the case with the NATALYA and agree with the findings and plan as documented in NATALYA Jim's note. Discharge Problem: Leukocytosis Qualifiers: Leukocytosis type: unspecified Qualified Code(s): D72.829 - Elevated white blood cell count, unspecified
[2023-08-22 20:42] LABS: Hematocrit (blood only) 39.6 % (37.0-47.0); Hemoglobin 13.1 g/dl (12.0-16.0); Mean Corpuscular Hemoglobin 27.9 pg (25.0-34.0); Mean Corpuscular Hgb Conc 33.1 g/dL (32.0-36.0); Mean Corpuscular Volume 84.4 fL (80.0-100.0); Mean Platelet Volume 8.8 fL (9.4-12.4); Platelet Count 546 K/uL (130-400); RDW Coefficient of Variation 14.6 % (11.5-14.5); RDW Standard Deviation 44.9 fL (36.4-46.3); Red Blood Count 4.69 M/uL (4.20-5.40); White Blood Count 23.01 K/ul (4.8-10.8)
[2023-08-22] MEDS: SODIUM CHLORIDE 0.9% 1,000 ML IV ONE (20:42)
[2023-08-22 20:45] LABS: Appearance Urine Cloudy (Clear); Bacteria Urine Automated 2+ (None Seen); Bilirubin Urine Negative (Negative); Blood Urine Negative (Negative); Cast Urine Automated 0-2 /lpf (0-2); Color Urine Yellow; Epithelial Cell Urine Auto >20 /hpf (0-2); Glucose Urine UA Trace (Negative); Ketones Urine Negative (Negative); Leukocyte Esterase Urine Trace (Negative); Nitrite Urine Negative (Negative); Protein Urine Negative (Negative); RBC Urine Automated 0-2 /hpf (0-2); Specific Gravity Urine 1.007 (1.000-1.030); Urobilinogen Urine Negative (Negative); WBC Urine Automated 0-5 /hpf (0-5); pH Urine 6.5 (4.5-7.5)
[2023-08-22 20:58] LABS: iSTAT Creatinine 0.7 mg/dl (0.6-1.3); iSTAT Hemoglobin 13.3 g/dl (12.0-16.0); iSTAT Ionized Calcium 1.2 mmol/l (1.12-1.32); iSTAT Potassium 3.5 mmol/L (3.3-5.0)
[2023-08-22 21:00] LABS: Albumin Globulin Ratio 1.6 (0.9-2); Albumin Level 4.6 gm/dl (3.4-5.0); BUN Creatinine Ratio 20.7 (10-20); Bilirubin,Total 0.4 mg/dl (0.2-1.0); Calcium 9.8 mg/dl (8.6-10.3); Creatinine Clr Calc Pharmacy 41.8 ml/min; Est GFR (African American) 84.6 ml/min; Globulin 2.9 gm/dl (2.5-4.0); Magnesium 1.8 mg/dl (1.7-2.4); Potassium 3.8 mmol/L (3.5-5.1); Total Protein 7.5 gm/dl (6.0-8.3)
[2023-08-22] MEDS: OPTIRAY 320 125ml IV ONE ×2 (21:05→23:31)
[2023-08-22 21:06] LABS: Troponin I High Sensitivity 6.6 pg/ml (0-14)
[2023-08-22 21:10] LABS: INR 0.9 (0.9-1.1); Partial Thromboplastin Ratio 0.9; Partial Thromboplastin Time 24 Seconds (21-31); Prothrombin Time 9.8 Seconds (9.0-12.0)
--- NOTE | 2023-08-22 21:26 | CT Scan Report ---
Exam(s): CT HEAD Without Contrast EXAM: CT Head Without Intravenous Contrast CLINICAL HISTORY: Reason for exam: dizziness, slurred speech. TECHNIQUE: Axial computed tomography images of the head/brain without intravenous contrast. CTDI is 38.6 mGy and DLP is 624.41 mGy-cm. Automated exposure control was utilized for the study. A dose lowering technique was utilized adhering to the principles of ALARA. COMPARISON: 04/19/2021 FINDINGS: Brain: Unremarkable. No hemorrhage. No significant white matter disease. No edema. Ventricles: Unremarkable. No ventriculomegaly. Bones/joints: Unremarkable. No acute fracture. Soft tissues: Unremarkable. Sinuses: Unremarkable as visualized. No acute sinusitis. Mastoid air cells: Unremarkable as visualized. No mastoid effusion. IMPRESSION: Normal head/brain CT. Communications: Call Doctor Stroke Electronically signed by: Arturo Davis MD 08/22/23 21:25 PM
--- NOTE | 2023-08-22 21:29 | CT Scan Report ---
Exam(s): CTA HEAD With Contrast IV Amt: 119ml EXAM: CT Angiography Head With Intravenous Contrast CLINICAL HISTORY: Reason for exam: dizziness, slurred speech. TECHNIQUE: Axial computed tomographic angiography images of the head with intravenous contrast. CTDI is 38.6 mGy and DLP is 624.41 mGy-cm. Automated exposure control was utilized for the study. A dose lowering technique was utilized adhering to the principles of ALARA. MIP reconstructed images were created and reviewed. CONTRAST: Patient received 119ml of IV contrast COMPARISON: 04/19/2021 FINDINGS: Right internal carotid artery: No acute findings. Intracranial segment is patent with no significant stenosis. No aneurysm. Right anterior cerebral artery: Unremarkable. No occlusion or significant stenosis. No aneurysm. Right middle cerebral artery: Unremarkable. No occlusion or significant stenosis. No aneurysm. Right posterior cerebral artery: Unremarkable. No occlusion or significant stenosis. No aneurysm. Right vertebral artery: Unremarkable as visualized. Left internal carotid artery: No acute findings. Intracranial segment is patent with no significant stenosis. No aneurysm. Left anterior cerebral artery: Unremarkable. No occlusion or significant stenosis. No aneurysm. Left middle cerebral artery: Unremarkable. No occlusion or significant stenosis. No aneurysm. Left posterior cerebral artery: Unremarkable. No occlusion or significant stenosis. No aneurysm. Left vertebral artery: Unremarkable as visualized. Basilar artery: Unremarkable. No occlusion or significant stenosis. No aneurysm. IMPRESSION: Normal head CTA. Communications: Call Doctor Stroke Electronically signed by: Arturo Davis MD 08/22/23 21:29 PM
--- NOTE | 2023-08-22 21:32 | CT Scan Report ---
Exam(s): CTA NECK With Contrast IV Amt: 119ml EXAM: CT Angiography Neck With Intravenous Contrast CLINICAL HISTORY: Reason for exam: dizziness, slurred speech. TECHNIQUE: Routine carotid CT angiography protocol was performed with intravenous contrast. NASCET criteria using the distal ICAs for comparison were used for evaluation of stenoses. CTDI is 38.6 mGy and DLP is 624.41 mGy-cm. Automated exposure control was utilized for the study. A dose lowering technique was utilized adhering to the principles of ALARA. MIP reconstructed images were created and reviewed. CONTRAST: Patient received 119ml of IV contrast COMPARISON: None. FINDINGS: VASCULATURE: Right common carotid artery: Dense calcific atherotic change at the distal right common carotid artery extending into the proximal right ICA without focal stenosis. No dissection. Right internal carotid artery: See above. Right external carotid artery: Unremarkable. No occlusion. Right vertebral artery: Unremarkable. No occlusion or significant stenosis. No dissection. Left common carotid artery: Unremarkable. No occlusion or significant stenosis. No dissection. Left internal carotid artery: See below. Left external carotid artery: Unremarkable. No occlusion. Left vertebral artery: Unremarkable. No occlusion or significant stenosis. No dissection. Other vasculature: Mild calcific atherosclerotic change at the left carotid bifurcation. NECK: Bones/joints: Unremarkable. No acute fracture. Soft tissues: Unremarkable. Lung apices: Clear. CAROTID STENOSIS REFERENCE USING NASCET CRITERIA: % ICA stenosis = (1 - narrowest ICA diameter/diameter of distal cervical ICA) x 100. Mild - <50% stenosis. Moderate - 50-69% stenosis. Severe - 70-94% stenosis. Near occlusion - 95-99% stenosis. Occluded - 100% stenosis. IMPRESSION: No acute findings in the arteries of the neck. Communications: Call Doctor Stroke Electronically signed by: Arturo Davis MD 08/22/23 21:31 PM
[2023-08-22 21:48] LABS: Basophils # (auto) 0.09 K/uL (0.00-0.20); Basophils % (auto) 0.4 %; Eosinophils # (auto) 0.07 K/uL (0.00-0.50); Eosinophils % (auto) 0.3 %; Hypersegmented Neutrophils 1+; Immature Granulocytes # (auto) 0.18 K/uL (0.01-0.20); Immature Granulocytes % (auto) 0.8 %; Lymphocytes # (auto) 5.45 K/uL (1.20-3.40); Lymphocytes % (auto) 23.7 %; Monocytes # (auto) 1.57 K/uL (0.11-0.59); Monocytes % (auto) 6.8 %; Neutrophils # (auto) 15.65 K/uL (1.40-6.50)
[2023-08-22 22:38] LABS: Adenovirus PCR Not Detected (NotDetected); Bordetella parapertussis PCR Not Detected (NotDetected); Bordetella pertussis PCR Not Detected (NotDetected); Chlamydia pneumoniae PCR Not Detected (NotDetected); Coronavirus 229E PCR Not Detected (NotDetected); Coronavirus CoV-2 (COVID19)PCR Not Detected (NotDetected); Coronavirus HKU1 PCR Not Detected (NotDetected); Coronavirus NL63 PCR Not Detected (NotDetected); Coronavirus OC43PCR Not Detected (NotDetected); Human Metapneumovirus PCR Not Detected (NotDetected); Influenza A PCR Not Detected (NotDetected); Influenza B PCR Not Detected (NotDetected); Mycoplasma pneumoniae PCR Not Detected (NotDetected); Parainfluenza Virus 1 PCR Not Detected (NotDetected); Parainfluenza Virus 2 PCR Not Detected (NotDetected); Parainfluenza Virus 3 PCR Not Detected (NotDetected); Parainfluenza Virus 4 PCR Not Detected (NotDetected); Respiratory Syncytial VirusPCR Not Detected (NotDetected); Rhinovirus/Enterovirus PCR Not Detected (NotDetected)
--- NOTE | 2023-08-22 23:47 | History & Physical Report ---
Date of Service August 22, 2023 Assessment & Plan (1) Encephalopathy: Plan: Multifactorial: Sepsis possible sources include complicated UTI and atypical pneumonia Uncontrolled hypertension Hyperglycemia, DM2 on oral medications, well-controlled as of recent hemoglobin A1c of 6.15 April 2023 Rule out TIA given transient stuttering symptoms and risk factors for cerebrovascular disease. COPD, not in acute exacerbation hyperlipidemia, on statin Rx hx PFO intellectual impairment as per records anxiety/mood disorder, at baseline ongoing tobacco abuse Medical telemetry CS, ceftriaxone for complicated UTI, doxycycline for possible atypical pneumonia Follow CT imaging results Basal bolus insulin, ISS BG goal 1 10-1 40, carb count coverage, update hemoglobin A1c Neurochecks Aspirin for stroke prevention Continue patient's home statin Rx MRI brain Permissive hypertension until acute stroke ruled out Additional stroke workup contingent on MRI results Nicotine patch DVT prophylaxis. Lovenox subcu Full code Text document was generated using [employer] voice recognition software. It may contain grammatical or spelling errors. Kindly contact undersigned for clarification of any documentation item in question. History of Present Illness Chief Complaint: Cough, abdominal pain, stuttering speech Primary Care Provider: Dr. George History obtained from patient and records. Medical history significant for COPD, HTN, hyperlipidemia, PFO, DM2 on oral medications, intellectual impairment as per records, anxiety/mood disorder, ongoing tobacco abuse. Last confinement April 2021 for expressive aphasia in the setting of COVID-19 illness. Unremarkable stroke workup except for small PFO on 2D echo. Neurology recommended aspirin for stroke prophylaxis on discharge. 2 days ago, patient noted transient achy right-sided abdominal pain associated with strong smelling urine at home. Cough symptoms productive of clear sputum. No chest pain, no SOB. Symptoms got better without treatment. Patient got sick again during druze dinner tonight. Transient stuttering symptoms. Denies headache, facial, arm or leg weakness. Not compliant with home aspirin Rx. SBP 200s, BSG 300s upon arrival at the ER. Ceftriaxone administered at the ER for possible sepsis. Patient currently feels much better, stuttering symptoms resolved. Medical History as above Surgical History : Subcutaneous tumor removal, section, cholecystectomy, BTL Family History : Alcoholism Personal/Social history : 1 pack daily, rare EtOH intake, disabled Allergies Allergy/AdvReac Type Severity Reaction Status Date / Time No Known Allergies Allergy Verified 04/19/21 15:37 Home Medications Medication Instructions Recorded Confirmed Type albuterol sulfate 90 mcg/actuation 2 puff inhalation QID 08/22/23 08/22/23 History aerosol inhaler (Ventolin HFA) amlodipine 10 mg tablet 10 mg PO DAILY 08/22/23 08/22/23 History atorvastatin 20 mg tablet 20 mg PO QAM 08/22/23 08/22/23 History latanoprost 0.005 % eye drops 1 drp OPB QPM 08/22/23 08/22/23 History metformin 500 mg tablet,extended 500 mg PO QAM 08/22/23 08/22/23 History release 24 hr mirtazapine 15 mg tablet 15 mg PO HS 08/22/23 08/22/23 History valsartan 80 mg tablet 80 mg PO QAM 08/22/23 08/22/23 History Past Med/Surg History Problem List (Updated 08/23/23 @ 04:41 by Sreekanth Ambriz MD) Encephalopathy Episode of dizziness (Acute) Leukocytosis (Acute) Medical History COVID-19 DVT prophylaxis Tobacco use disorder Osteoporosis Hyperlipidemia Hypertension Surgical History History of tubal ligation History of cholecystectomy Family History Father Alcoholism Mother Alcoholism Social History Smoking Status: Current every day smoker Tobacco Type: Cigarettes Cigarettes Per Day: 10; Second Hand Exposure: No; Do You Dip or Chew Tobacco: No; Tobacco Cessation Education Requested by Patient: No Hx Alcohol Use: No Hx Substance Use: No Preferred Language: British Communication Ability: Effective Harness Builder Required: No Beliefs That Will Affect Care: None marital status: Current Living Situation: Alone Current Living Situation Comment: "friend" current occupational status: unemployed How many Children do You have: 4 Other Information That Helps Us Care for You: No Feels Safe at Home: Yes Safety Concerns: Feels Safe At This Time Assistive Devices: None Review of Systems Review of Systems: As per HPI, all other systems reviewed and negative Physical Exam Physical Exam: GENERAL: Comfortable, slightly hard of hearing, no respiratory distress SKIN: Normal color, warm HEENT: [place] palpebral conjunctivae, no ptosis, dry buccal mucosa NECK : Supple, no tenderness CHEST : Decreased breath sounds, no tenderness HEART : RRR, no obvious murmurs ABDOMEN: Some distention, minimal right-sided tenderness EXTREMITIES : No LE swelling/tenderness, no other conspicuous deformities noted NEUROLOGIC : Coherent, no facial asymmetry, slightly hard of hearing, no other gross focality Results & Data Results & Data Vital Signs (Past 12 Hours) Vital Signs Temp Pulse Pulse Resp BP BP Pulse Ox 08/22/23 23:10 82 21 96 08/22/23 23:00 149/79 H 08/22/23 23:00 83 17 96 08/22/23 22:50 89 16 97 08/22/23 22:45 171/87 H 08/22/23 22:45 87 21 96 08/22/23 22:40 83 21 95 08/22/23 22:30 88 21 96 08/22/23 22:30 145/74 H 08/22/23 22:20 87 15 96 08/22/23 22:15 89 32 H 96 08/22/23 22:15 149/78 H 08/22/23 22:10 83 20 95 08/22/23 22:00 90 20 95 08/22/23 22:00 161/77 H 08/22/23 21:50 89 19 96 08/22/23 21:45 168/78 H 08/22/23 21:45 87 18 95 08/22/23 21:40 89 16 95 08/22/23 21:32 94 H 20 97 08/22/23 21:32 174/81 H 08/22/23 21:31 96 08/22/23 21:20 91 H 14 08/22/23 21:15 151/72 H 08/22/23 21:15 93 H 13 96 08/22/23 21:11 166/93 H 08/22/23 21:11 100 H 18 96 08/22/23 21:01 95 08/22/23 20:09 102 H 08/22/23 19:50 93 H 16 178/95 H 97 08/22/23 19:41 36.7 C 108 H 16 213/89 H 97 O2 Del Method 08/22/23 23:10 08/22/23 23:00 08/22/23 23:00 08/22/23 22:50 05/15/24 22:45 08/22/23 22:45 08/22/23 22:40 08/22/23 22:30 08/22/23 22:30 08/22/23 22:20 08/22/23 22:15 08/22/23 22:15 08/22/23 22:10 08/22/23 22:00 08/22/23 22:00 08/22/23 21:50 08/22/23 21:45 08/22/23 21:45 08/22/23 21:40 08/22/23 21:32 08/22/23 21:32 08/22/23 21:31 08/22/23 21:20 08/22/23 21:15 08/22/23 21:15 08/22/23 21:11 08/22/23 21:11 08/22/23 21:01 Room Air 08/22/23 20:09 08/22/23 19:50 Room Air 08/22/23 19:41 Room Air Laboratory Results Laboratory Results WBC 23.01 K/ul (4.8-10.8) H 08/22/23 20:07 RBC 4.69 M/uL (4.20-5.40) 08/22/23 20:07 Hgb 13.1 g/dl (12.0-16.0) 08/22/23 20:07 POC Hgb 13.3 g/dl (12.0-16.0) 08/22/23 20:46 Hct 39.6 % (37.0-47.0) 08/22/23 20:07 POC Hct 39 % (37-47) 08/22/23 20:46 MCV 84.4 fL (80.0-100.0) 08/22/23 20:07 MCH 27.9 pg (25.0-34.0) 08/22/23 20:07 MCHC 33.1 g/dL (32.0-36.0) 08/22/23 20:07 RDW Std Deviation 44.9 fL (36.4-46.3) 08/22/23 20:07 RDW Coeff of Micah 14.6 % (11.5-14.5) H 08/22/23 20:07 Plt Count 546 K/uL (130-400) H 08/22/23 20:07 MPV 8.8 fL (9.4-12.4) L 08/22/23 20:07 Immature Gran % (Auto) 0.8 % 08/22/23 20:07 Neut % (Auto) 68.0 % 08/22/23 20:07 Lymph % (Auto) 23.7 % 08/22/23 20:07 [place] % (Auto) 6.8 % 08/22/23 20:07 Eos % (Auto) 0.3 % 08/22/23 20:07 Baso % (Auto) 0.4 % 08/22/23 20:07 Neut # (Auto) 15.65 K/uL (1.40-6.50) H 08/22/23 20:07 Lymph # (Auto) 5.45 K/uL (1.20-3.40) H 08/22/23 20:07 [place] # (Auto) 1.57 K/uL (0.11-0.59) H 08/22/23 20:07 Eos # (Auto) 0.07 K/uL (0.00-0.50) 08/22/23 20:07 Baso # (Auto) 0.09 K/uL (0.00-0.20) 08/22/23 20:07 Immature Gran # (Auto) 0.18 K/uL (0.01-0.20) 08/22/23 20:07 Hypersegmented Neuts 1+ 08/22/23 20:07 PT 9.8 Seconds (9.0-12.0) 08/22/23 20:07 INR 0.9 (0.9-1.1) 08/22/23 20:07 APTT 24 Seconds (21-31) 08/22/23 20:07 PTT Ratio 0.9 08/22/23 20:07 POC Sodium 136 mmol/L (135-144) 08/22/23 20:46 Sodium 135 mmol/L (136-145) L 08/22/23 20:07 POC Potassium 3.5 mmol/L (3.3-5.0) 08/22/23 20:46 Potassium 3.8 mmol/L (3.5-5.1) 08/22/23 20:07 POC Chloride 101 mmol/L (101-112) 08/22/23 20:46 Chloride 102 mmol/L (98-107) 08/22/23 20:07 Carbon Dioxide 22 mmol/L (21-32) 08/22/23 20:07 POC Total CO2 23 mmol/L (24-31) L 08/22/23 20:46 Anion Gap 11 (3-11) 08/22/23 20:07 POC Anion Gap 17.0 mmol/L (16-25) 08/22/23 20:46 POC BUN 16 mg/dl (7-18) 08/22/23 20:46 BUN 17 mg/dl (6-23) 08/22/23 20:07 Creatinine 0.82 mg/dl (0.6-1.2) 08/22/23 20:07 POC Creatinine 0.7 mg/dl (0.6-1.3) 08/22/23 20:46 Est Cr Clr Drug Dosing 41.8 ml/min 08/22/23 20:07 Est GFR ( Amer) 84.6 ml/min 08/22/23 20:07 Est GFR (Non-Af Amer) 73.0 ml/min 08/22/23 20:07 BUN/Creatinine Ratio 20.7 (10-20) H 08/22/23 20:07 Glucose 239 mg/dl (70-99(Fasting)) H 08/22/23 20:07 POC Glucose 245 mg/dl (70-99) H 08/22/23 20:39 POC Glucose (other) 240 mg/dl (70-99) H 08/22/23 20:46 Lactate 1.3 mmol/L (0.4-2.0) 08/22/23 21:23 Calcium 9.8 mg/dl (8.6-10.3) 08/22/23 20:07 POC Ioniz Calcium [place] 1.20 mmol/l (1.12-1.32) 08/22/23 20:46 Magnesium 1.8 mg/dl (1.7-2.4) 08/22/23 20:07 Total Bilirubin 0.4 mg/dl (0.2-1.0) 08/22/23 20:07 AST 18 U/L (13-39) 08/22/23 20:07 ALT 16 U/L (7-52) 08/22/23 20:07 Alkaline Phosphatase 87 U/L (34-104) 08/22/23 20:07 Troponin I High Sens 6.6 pg/ml (0-14) 08/22/23 20:07 Total Protein 7.5 gm/dl (6.0-8.3) 08/22/23 20: Albumin 4.6 gm/dl (3.4-5.0) 08/22/23 20: Globulin 2.9 gm/dl (2.5-4.0) 08/22/23 20: Albumin/Globulin Ratio 1.6 (0.9-2) 08/22/23 20:07 Urine Color Yellow 08/22/23 20:08 Urine Appearance Cloudy (Clear) A 08/22/23 20: Urine pH 6.5 (4.5-7.5) 08/22/23 20:08 Ur Specific [place] 1.007 (1.000-1.030) 08/22/23 20:08 Urine Protein Negative (Negative) 08/22/23 20:08 Urine Glucose (UA) Trace (Negative) H 08/22/23 20:08 Urine Ketones Negative (Negative) 08/22/23 20: Urine Blood Negative (Negative) 08/22/23 20: Urine Nitrite Negative (Negative) 08/22/23 20:08 Urine Bilirubin Negative (Negative) 08/22/23 20: Urine Urobilinogen Negative (Negative) 08/22/23 20:08 Ur Leukocyte Esterase Trace (Negative) H 08/22/23 20:08 Urine WBC (Auto) 0-5 /hpf (0-5) 08/22/23 20:08 Urine RBC (Auto) 0-2 /hpf (0-2) 08/22/23 20:08 U Hyaline Cast (Auto) 0-2 /lpf (0-2) 08/22/23 20:08 U Epithel Cells (Auto) >20 /hpf (0-2) H 08/22/23 20:08 Urine Bacteria (Auto) 2+ (None Seen) H 08/22/23 20:08 Adenovirus (PCR) Not Detected (NotDetected) 08/22/23 21:25 B. pertussis DNA (PCR) Not Detected (NotDetected) 08/22/23 21:25 B.parapertussis DNA PCR Not Detected (NotDetected) 08/22/23 21:25 C. pneumoniae DNA (PCR) Not Detected (NotDetected) 08/22/23 21:25 Coronavirus OC43 (PCR) Not Detected (NotDetected) 08/22/23 21:25 Coronavirus HKU1 (PCR) Not Detected (NotDetected) 08/22/23 21:25 Coronavirus 229E (PCR) Not Detected (NotDetected) 08/22/23 21:25 SARS-CoV-2 (PCR) Not Detected (NotDetected) 08/22/23 21:25 Coronavirus NL63 (PCR) Not Detected (NotDetected) 08/22/23 21:25 Human Metapneumovir PCR Not Detected (NotDetected) 08/22/23 21:25 Influenza Type A (PCR) Not Detected (NotDetected) 08/22/23 21:25 Influenza Type B (PCR) Not Detected (NotDetected) 08/22/23 21:25 M. pneumoniae (PCR) Not Detected (NotDetected) 08/22/23 21:25 Parainfluenza 1 (PCR) Not Detected (NotDetected) 08/22/23 21:25 Parainfluenza 2 (PCR) Not Detected (NotDetected) 08/22/23 21:25 Parainfluenza 3 (PCR) Not Detected (NotDetected) 08/22/23 21:25 Parainfluenza 4 (PCR) Not Detected (NotDetected) 08/22/23 21:25 RSV (PCR) Not Detected (NotDetected) 08/22/23 21:25 Entero/Rhino (PCR) Not Detected (NotDetected) 08/22/23 21:25 SARS-CoV-2, RNA, NAAT NEGATIVE (NEGATIVE) 08/22/23 20:[address] 08/22/23 20:26 CR Exam(s): CT HEAD Without Contrast EXAM: CT Head Without Intravenous Contrast CLINICAL HISTORY: Reason for exam: dizziness, slurred speech. TECHNIQUE: Axial computed tomography images of the head/brain without intravenous contrast. CTDI is 38.6 mGy and DLP is 624.41 mGy-cm. Automated exposure control was utilized for the study. A dose lowering technique was utilized adhering to the principles of ALARA. COMPARISON: 04/19/2021 FINDINGS: Brain: Unremarkable. No hemorrhage. No significant white matter disease. No edema. Ventricles: Unremarkable. No ventriculomegaly. Bones/joints: Unremarkable. No acute fracture. Soft tissues: Unremarkable. Sinuses: Unremarkable as visualized. No acute sinusitis. Mastoid air cells: Unremarkable as visualized. No mastoid effusion. IMPRESSION: Normal head/brain CT. Communications: Call Doctor Stroke Electronically signed by: Arturo Davis MD 08/22/23 21:25 PM Head CTA 08/22/23 20:26 CR Exam(s): CTA HEAD With Contrast IV Amt: 119ml EXAM: CT Angiography Head With Intravenous Contrast CLINICAL HISTORY: Reason for exam: dizziness, slurred speech. TECHNIQUE: Axial computed tomographic angiography images of the head with intravenous contrast. CTDI is 38.6 mGy and DLP is 624.41 mGy-cm. Automated exposure control was utilized for the study. A dose lowering technique was utilized adhering to the principles of ALARA. MIP reconstructed images were created and reviewed. CONTRAST: Patient received 119ml of IV contrast COMPARISON: 04/19/2021 FINDINGS: Right internal carotid artery: No acute findings. Intracranial segment is patent with no significant stenosis. No aneurysm. Right anterior cerebral artery: Unremarkable. No occlusion or significant stenosis. No aneurysm. Right middle cerebral artery: Unremarkable. No occlusion or significant stenosis. No aneurysm. Right posterior cerebral artery: Unremarkable. No occlusion or significant stenosis. No aneurysm. Right vertebral artery: Unremarkable as visualized. Left internal carotid artery: No acute findings. Intracranial segment is patent with no significant stenosis. No aneurysm. Left anterior cerebral artery: Unremarkable. No occlusion or significant stenosis. No aneurysm. Left middle cerebral artery: Unremarkable. No occlusion or significant stenosis. No aneurysm. Left posterior cerebral artery: Unremarkable. No occlusion or significant stenosis. No aneurysm. Left vertebral artery: Unremarkable as visualized. Basilar artery: Unremarkable. No occlusion or significant stenosis. No aneurysm. IMPRESSION: Normal head CTA. Communications: Call Doctor Stroke Electronically signed by: Arturo Davis MD 08/22/23 21:29 PM Neck CTA 08/22/23 20:26 CR Exam(s): CTA NECK With Contrast IV Amt: 119ml EXAM: CT Angiography Neck With Intravenous Contrast CLINICAL HISTORY: Reason for exam: dizziness, slurred speech. TECHNIQUE: Routine carotid CT angiography protocol was performed with intravenous contrast. NASCET criteria using the distal ICAs for comparison were used for evaluation of stenoses. CTDI is 38.6 mGy and DLP is 624.41 mGy-cm. Automated exposure control was utilized for the study. A dose lowering technique was utilized adhering to the principles of ALARA. MIP reconstructed images were created and reviewed. CONTRAST: Patient received 119ml of IV contrast COMPARISON: None. FINDINGS: VASCULATURE: Right common carotid artery: Dense calcific atherotic change at the distal right common carotid artery extending into the proximal right ICA without focal stenosis. No dissection. Right internal carotid artery: See above. Right external carotid artery: Unremarkable. No occlusion. Right vertebral artery: Unremarkable. No occlusion or significant stenosis. No dissection. Left common carotid artery: Unremarkable. No occlusion or significant stenosis. No dissection. Left internal carotid artery: See below. Left external carotid artery: Unremarkable. No occlusion. Left vertebral artery: Unremarkable. No occlusion or significant stenosis. No dissection. Other vasculature: Mild calcific atherosclerotic change at the left carotid bifurcation. NECK: Bones/joints: Unremarkable. No acute fracture. Soft tissues: Unremarkable. Lung apices: Clear. CAROTID STENOSIS REFERENCE USING NASCET CRITERIA: % ICA stenosis = (1 - narrowest ICA diameter/diameter of distal cervical ICA) x 100. Mild - <50% stenosis. Moderate - 50-69% stenosis. Severe - 70-94% stenosis. Near occlusion - 95-99% stenosis. Occluded - 100% stenosis. IMPRESSION: No acute findings in the arteries of the neck. Communications: Call Doctor Stroke Electronically signed by: Arturo Davis MD 08/22/23 21:31 PM Diagnostic Findings Chest x-ray as per my interpretation: Interstitial infiltrates EKG as per my interpretation : Rate 95, NSR, normal axis, no ischemia
[2023-08-22] MEDS ORDERED: traMADol HCL 50 MG TABLET PO PRN (23:50)
[2023-08-22] MEDS ORDERED: PHARMACIST DISCHARGE MED REC CONSULT PRN (23:50)
[2023-08-22] MEDS: cefTRIAXone SODIUM 2,000 MG/50 ML BAG IV STA (23:57)
[2023-08-23] MEDS ORDERED: CARBOHYDRATES FOR HYPOGLYCEMIA PO PRN (00:11)
[2023-08-23] MEDS ORDERED: DEXTROSE 50% 50 ML SYRINGE IV PRN (00:11)
[2023-08-23] MEDS ORDERED: GLUCOSE 40% GEL 15 GM TUBE PO PRN (00:11)
[2023-08-23] MEDS ORDERED: GLUCOSE 10 TAB/TUBE PO PRN (00:11)
[2023-08-23] MEDS ORDERED: GLUCAGON FOR INJ 1 MG VIAL SQ PRN (00:11)
[2023-08-23] MEDS ORDERED: LEVALBUTEROL 1.25 MG/3 ML NEB NEB PRN (00:13)
[2023-08-23] MEDS ORDERED: IPRATROPIUM BROMIDE NEB SOLN 0.02% 0.5MG/2.5ML VIAL INH PRN (00:13)
[2023-08-23] MEDS: DOXYCYCLINE HYCLATE 100 MG in DEXTROSE 5% MINI-B 100 ML IV STA (01:12)
[2023-08-23] MEDS: MAGNESIUM SULFATE / D5W 1 GM/100 ML BAG IV ONE (01:14)
[2023-08-23] MEDS: NICOTINE 21 MG/24 HR TDSY TD SCH (01:14)
[2023-08-23] MEDS: ASPIRIN CHEW 324 MG PO STA (01:14)
--- NOTE | 2023-08-23 01:38 | CT Scan Report ---
Exam(s): CTA CHEST IV Amt: 119 ml optiray 320 EXAM: CT Angiography Chest With Intravenous Contrast CLINICAL HISTORY: Reason for exam: leukocytosis, cough, dyspnea xr ?LL pna. TECHNIQUE: Axial computed tomographic angiography images of the chest with intravenous contrast. CTDI is 13.28 mGy and DLP is 736.29 mGy-cm. Automated exposure control was utilized for the study. A dose lowering technique was utilized adhering to the principles of ALARA. MIP reconstructed images were created and reviewed. COMPARISON: No relevant prior studies available. FINDINGS: Pulmonary arteries: Unremarkable. No acute pulmonary embolism. Aorta: Atherosclerotic changes of the aorta. No thoracic aortic aneurysm. Lungs: Mild centrilobular emphysema. No mass. No consolidation. Pleural space: Unremarkable. No significant effusion. No pneumothorax. Heart: Unremarkable. No cardiomegaly. No significant pericardial effusion. No evidence of RV dysfunction. Bones/joints: Degenerative changes of the spine. No acute fracture. No dislocation. Soft tissues: Unremarkable. Lymph nodes: Unremarkable. No enlarged lymph nodes. Liver: Hepatic steatosis. IMPRESSION: No acute pulmonary embolism. Electronically signed by: Sherman Cool MD 08/23/23 01:37 AM
[2023-08-23] MEDS: INSULIN ASPART PER UNIT CHARGE SC SCH ×2 (01:40→16:59)
--- NOTE | 2023-08-23 01:47 | CT Scan Report ---
Exam(s): CT ABDOMEN + PELVIS With Contrast IV Amt: 119 ml optiray 320 EXAM: CT Abdomen and Pelvis With Intravenous Contrast CLINICAL HISTORY: Reason for exam: dizziness, nausea, dyspnea, leukocytosis. TECHNIQUE: Axial computed tomography images of the abdomen and pelvis with intravenous contrast. CTDI is 13.28 mGy and DLP is 736.29 mGy-cm. Automated exposure control was utilized for the study. A dose lowering technique was utilized adhering to the principles of ALARA. CONTRAST: Patient received 119 ml optiray 320 of IV contrast COMPARISON: No relevant prior studies available. FINDINGS: Lung bases: Unremarkable. No mass. No consolidation. ABDOMEN: Liver: Unremarkable. No mass. Gallbladder and bile ducts: Cholecystectomy. No ductal dilation. Pancreas: Unremarkable. No mass. No ductal dilation. Spleen: Unremarkable. No splenomegaly. Adrenals: Unremarkable. No mass. Kidneys and ureters: Unremarkable. No solid mass. No hydronephrosis. Stomach and bowel: Unremarkable. No obstruction. No mucosal thickening. PELVIS: Appendix: No findings to suggest acute appendicitis. Bladder: Unremarkable. No mass. Reproductive: LEFT ovarian cyst measures 3.1 x 2.4 cm. ABDOMEN and PELVIS: Intraperitoneal space: Unremarkable. No free air. No significant fluid collection. Bones/joints: Degenerative changes of the spine. No acute fracture. No dislocation. Soft tissues: Unremarkable. Vasculature: Atherosclerotic changes of the aorta. No abdominal aortic aneurysm. Lymph nodes: Unremarkable. No enlarged lymph nodes. IMPRESSION: LEFT ovarian cyst measures 3.1 x 2.4 cm. Nonemergent pelvic ultrasound follow-up recommended. Electronically signed by: Sherman Cool MD 08/23/23 01:46 AM
--- NOTE | 2023-08-23 02:35 | Magnetic Resonance Report ---
Exam(s): MRI HEAD Without Contrast EXAM: MR Head Without Intravenous Contrast CLINICAL HISTORY: Reason for exam: tia. TECHNIQUE: Magnetic resonance images of the head/brain without intravenous contrast in multiple planes. COMPARISON: Comparison made to prior head CT from August 22, 2023 at 8:59 PM. FINDINGS: The study is suboptimal secondary to motion artifact. Brain: There is a tiny acute ischemic injury within the left pulvinar nucleus. Mild nonspecific white matter changes. The flow voids at the base of the brain are intact. No mass. No hemorrhage. Ventricles: Unremarkable. No ventriculomegaly. Bones/joints: Mild to moderate facet arthropathy at C2-3 through C5-6. No acute fracture. Sinuses: Unremarkable as visualized. No acute sinusitis. Mastoid air cells: Unremarkable as visualized. No mastoid effusion. Orbits: Bilateral lens replacements. IMPRESSION: Findings concerning for a tiny focus of acute ischemic injury within the left pulvinar nucleus. Communications: Verify Receipt Electronically signed by: Mariya Márquez MD 08/23/23 02:34 AM
[2023-08-23] MEDS: LANTUS PER UNIT CHARGE SQ STA (03:03)
[2023-08-23] MEDS: POTASSIUM CHLORIDE CRTAB 20 MEQ TABCR PO STA (03:46)
[2023-08-23 04:43] LABS: Hematocrit (blood only) 36.4 % (37.0-47.0); Mean Platelet Volume 8.6 fL (9.4-12.4); Platelet Count 483 K/uL (130-400); RDW Coefficient of Variation 14.6 % (11.5-14.5); RDW Standard Deviation 44.7 fL (36.4-46.3); Red Blood Count 4.28 M/uL (4.20-5.40); White Blood Count 19.64 K/ul (4.8-10.8)
[2023-08-23 04:54] LABS: BUN Creatinine Ratio 21.2 (10-20); Calcium 8.8 mg/dl (8.6-10.3); Chol HDL Ratio 2.7 (0-5); Creatinine Clr Calc Pharmacy 51.9 ml/min; Est GFR (African American) 104.5 ml/min; Est GFR (Non-African American) 90.1 ml/min; Potassium 3.8 mmol/L (3.5-5.1)
[2023-08-23 05:14] LABS: Basophils # (auto) 0.07 K/uL (0.00-0.20); Basophils % (auto) 0.4 %; Eosinophils # (auto) 0.11 K/uL (0.00-0.50); Eosinophils % (auto) 0.6 %; Immature Granulocytes # (auto) 0.13 K/uL (0.01-0.20); Immature Granulocytes % (auto) 0.7 %; Lymphocytes # (auto) 5.95 K/uL (1.20-3.40); Lymphocytes % (auto) 30.3 %; Monocytes # (auto) 1.28 K/uL (0.11-0.59); Monocytes % (auto) 6.5 %; Neutrophils % (auto) 61.5 %
[2023-08-23 07:11] LABS: Estimated Average Glucose 148 mg/dl; Hemoglobin A1C 6.8 % (4.5-5.6)
--- NOTE | 2023-08-23 07:39 | XRay Report ---
XR chest 1V portable CLINICAL HISTORY: sepsis workup TECHNIQUE: Single frontal radiograph of the chest was obtained. Comparison: Comparison is made to chest radiograph 04/19/2021 FINDINGS: No lines and tubes are seen. Calcified aortic knob is seen. Reticular interstitial opacities are seen . No evidence of pleural effusion or pneumothorax. IMPRESSION: No acute abnormalities and in particular no radiographic evidence of pneumonia. ACT 112: Negative or not required by law. Electronically signed by: Scott Madera M.D. 08/23/2023 7:38 AM
--- NOTE | 2023-08-23 08:01 | Electrocardiogram Report ---
Test Reason : Blood Pressure : / mmHG Vent. Rate : 095 BPM Atrial Rate : 095 BPM P-R Int : 132 ms QRS Dur : 074 ms QT Int : 348 ms P-R-T Axes : 073 079 044 degrees QTc Int : 437 ms Normal sinus rhythm Possible Left atrial enlargement Poor R wave progression, consider anterior MD vs. lead placement vs. LVH Abnormal ECG When compared with ECG of 19-APR-2021 12:03, No significant change was found Confirmed by Dale Lovett ([id number]) on 08/23/2023 8:01:15 AM Referred By: REFERRED SELF Confirmed By:Fito Lovett
[2023-08-23] MEDS ORDERED: ATORVASTATIN 20 MG TAB PO SCH (09:00)
[2023-08-23] MEDS: ENOXAPARIN INJ 40 MG/0.4 ML SYR SQ SCH (10:21)
[2023-08-23] MEDS: ATORVASTATIN 40 MG TAB PO SCH (10:21)
--- NOTE | 2023-08-23 14:23 | Neurology Consultation ---
Date of Consultation August 23, 2023 Assessment & Plan (1) Acute ischemic stroke: likely small vessel disease, in the setting of uncontrolled HTN and DM Plan MRI of the brain shows a small left posterior thalamic stroke that could be related to small vessel disease. CTA of the head and neck is unremarkable with no significant atherosclerotic disease. EKG is normal sinus rhythm No need for repeating Echocardiogram Continue aspirin and statins for stroke prevention Telehealth Consultation Telehealth Information Telehealth Information: I performed this visit using a real-time telehealth connection between my location and the patients location ([facility]). After connecting through interactive tele-video, patient was identified by name and date of and/or wristband check.Patient (or authorized healthcare sales representative public utilities) was informed that this was a telemedicine visit and it was being conducted confidentially over secure lines. My office door was closed and no one else was present in the room with me.Patient (or authorized healthcare sales representative public utilities) provided consent to proceed with the visit, expressed an understanding of privacy and security of the telemedicine visit, and gave permission to have a hospital sales representative public utilities in the room in order to assist with the visit and to conduct portions of the visit, as needed. I informed the patient (or authorized healthcare sales representative public utilities) that I reviewed their record and presented the opportunity for them to ask any questions regarding the visit today. The patient agreed to participate. History of Present Illness Reason for Consultation: acute stroke on MRI Requesting Physician: Soren Sy MD Attending Physician: Soren Sy MD History of Present Illness Nya Vazquez is a 68-year-old female patient with PMH of HTN, HLP, COPD, PFO, type II DM and intellectual impairment, anxiety and mood disorder who previously presented with aphasia in the setting of COVID-19 illness with unremarkable workup except for a small PFO on echo. The patient presented to the ED for multiple complaints, she has been having cough and has been reported right-sided abdominal pain associated with strong smelling of urine. The patient is currently being treated with antibiotics for UTI . When I asked the patient why she came to the emergency room she reports that it is because her blood sugar and blood pressure were not okay and she is feeling weak in general, she had numbness in both arms, she denies any visual changes or slurred speech. No difficulty with walking, no balance problems. Allergies Allergy/AdvReac Type Severity Reaction Status Date / Time No Known Allergies Allergy Verified 04/19/21 15:37 Home Medications Medication Instructions Recorded Confirmed Type albuterol sulfate 90 mcg/actuation 2 puff inhalation QID 08/22/23 08/22/23 History aerosol inhaler (Ventolin HFA) amlodipine 10 mg tablet 10 mg PO DAILY 08/22/23 08/22/23 History atorvastatin 20 mg tablet 20 mg PO QAM 08/22/23 08/22/23 History latanoprost 0.005 % eye drops 1 drp OPB QPM 08/22/23 08/22/23 History metformin 500 mg tablet,extended 500 mg PO QAM 08/22/23 08/22/23 History release 24 hr mirtazapine 15 mg tablet 15 mg PO HS 08/22/23 08/22/23 History valsartan 80 mg tablet 80 mg PO QAM 08/22/23 08/22/23 History Patient History Medical History COVID-19 DVT prophylaxis Tobacco use disorder Osteoporosis Hyperlipidemia Hypertension Surgical History History of tubal ligation History of cholecystectomy Family History Father Alcoholism Mother Alcoholism Social History Smoking Status: Current every day smoker Tobacco Type: Cigarettes Cigarettes Per Day: 10; Second Hand Exposure: No; Do You Dip or Chew Tobacco: No; Tobacco Cessation Education Requested by Patient: No Hx Alcohol Use: No Hx Substance Use: No Preferred Language: Mongolian Communication Ability: Effective Senior Billing Consultant Required: No Beliefs That Will Affect Care: None marital status: Current Living Situation: Alone Current Living Situation Comment: "friend" current occupational status: unemployed How many Children do You have: 4 Other Information That Helps Us Care for You: No Feels Safe at Home: Yes Safety Concerns: Feels Safe At This Time Assistive Devices: None Review of Systems Negative except for the points mentioned in HPI Physical Exam General Constitutional: Appearance normally developed Head and face: normocephalic and atraumatic Eyes: no ptosis, no anisocoria, and no dysconjugate gaze Respiratory: normal effort Cardiovascular: regular rhythm and regular rate Abdomen: non distended Skin: no rashes, lesions, or ulcers noted Psychiatric: normal judgement and insight, normal mood, and normal affect NEUROLOGIC EXAMINATION: Mental Status:alert, oriented to time, place, person, normal recent memory, normal remote memory, normal attention span, normal concentration, normal language and normal fund of knowledge Cranial Nerves: CN 2 - no visual defect on confrontation and pupils round, equal, reactive to light CN 3, 4, 6 - extra-ocular movements intact and no nystagmus CN 5 - facial sensation intact CN 7 - no facial asymmetry CN 8 - intact hearing CN 9, 10 - palate symmetric, normal gag CN 11 - good shoulder shrug CN 12 - tongue midline MOTOR: Strength was at least antigravity throughout, Pronator drift was absent and There were no abnormal movements SENSATION: intact and symmetric to pinprick, light touch, vibration and joint position GAIT: stable, no ataxia and can perform tandem walking COORDINATION: no ataxia with finger to nose testing and heel to parekh testing REFLEXES: cannot assess over telemedicine .NIH Stroke Scale: 1a. Level of Consciousness: alert = 0 1b. LOC Questions: (month, age): both correct = 0 1c. LOC Commands (open and close eyes, make fist and let go using non-paretic hand): obeys both correctly = 0 2. Best Gaze (eyes open and patient follows examiner's finger or face): normal = 0 3. Visual (visual threat or finger counting in each quadrant): no loss = 0 4. Facial Palsy (show teeth, raise eye brows and squeeze eyes shut, or grimace symmetry in a comatose patient): normal = 0 5a. Motor Arm (extend arm (palms down) to 90 degrees and score drift/movement (10 seconds) - Left: no drift = 0 5b. Motor Arm: (extend arm (palms down) to 90 degrees and score drift/movement (10 seconds) - Right: no drift = 0 6a. Motor Leg (elevate leg 30 degrees and score drift/ movement (5 seconds) - Left: no drift = 0 6b. Motor Leg (elevate leg 30 degrees and score drift/ movement (5 seconds) - Right: no drift = 0 7. Limb Ataxia (finger to nose, heel down parekh): absent = 0 8. Sensory (pin prick to face, arm, trunk and leg, compare side to side): normal = 0 9. Best Language: no aphasia = 0 10. Dysarthria (evaluate speech clarity by patient repeating listed words): normal articulation = 0 11. Extinction and Inattention: no neglect = 0 Total: 0 Results & Data Vital Signs (Past 12 Hours) Vital Signs Pulse Resp BP Pulse Ox 08/23/23 07:45 150/76 H 08/23/23 07:44 91 H 16 97 08/23/23 07:30 76 17 92 08/23/23 07:30 122/64 08/23/23 07:15 84 17 95 08/23/23 07:15 148/73 H 08/23/23 07:13 82 08/23/23 07:00 85 16 96 08/23/23 07:00 151/82 H 08/23/23 06:45 132/73 08/23/23 06:45 86 19 96 08/23/23 06:30 146/70 H 08/23/23 06:30 84 17 96 08/23/23 06:15 151/96 H 08/23/23 06:15 92 H 22 08/23/23 06:00 86 15 97 08/23/23 06:00 143/71 H 08/23/23 05:45 69 15 144/81 H 95 08/23/23 05:30 70 15 106/51 L 95 08/23/23 05:15 74 16 117/60 97 08/23/23 05:00 73 17 120/64 95 08/23/23 04:45 72 15 103/59 L 95 08/23/23 04:30 78 15 119/65 96 08/23/23 04:15 78 16 140/72 97 08/23/23 04:00 71 16 104/55 L 97 08/23/23 03:45 79 17 152/60 H 97 08/23/23 03:30 113/54 L 08/23/23 03:15 67 16 134/70 95 08/23/23 03:00 69 15 148/74 H 96 Laboratory Results Laboratory Results - last 24 hr 08/22/23 08/22/23 08/22/23 20:07 20:08 20:39 WBC 23.01 H RBC 4.69 Hgb 13.1 POC Hgb Hct 39.6 POC Hct MCV 84.4 MCH 27.9 MCHC 33.1 RDW Std Deviation 44.9 RDW Coeff of Micah 14.6 H Plt Count 546 H MPV 8.8 L Immature Gran % (Auto) 0.8 Neut % (Auto) 68.0 Lymph % (Auto) 23.7 [place] % (Auto) 6.8 Eos % (Auto) 0.3 Baso % (Auto) 0.4 Neut # (Auto) 15.65 H Lymph # (Auto) 5.45 H [place] # (Auto) 1.57 H Eos # (Auto) 0.07 Baso # (Auto) 0.09 Immature Gran # (Auto) 0.18 Hypersegmented Neuts 1+ PT 9.8 INR 0.9 APTT 24 PTT Ratio 0.9 POC Sodium Sodium 135 L POC Potassium Potassium 3.8 POC Chloride Chloride 102 Carbon Dioxide 22 POC Total CO2 Anion Gap 11 POC Anion Gap POC BUN BUN 17 Creatinine 0.82 POC Creatinine Est Cr Clr Drug Dosing 41.8 Est GFR ( Amer) 84.6 Est GFR (Non-Af Amer) 73.0 BUN/Creatinine Ratio 20.7 H Glucose 239 H POC Glucose 245 H POC Glucose (other) Estimat Average Glucose 148 Hemoglobin A1c 6.8 H Lactate Calcium 9.8 POC Ioniz Calcium [place] Magnesium 1.8 Total Bilirubin 0.4 AST 18 ALT 16 Alkaline Phosphatase 87 Troponin I High Sens 6.6 Total Protein 7.5 Albumin 4.6 Globulin 2.9 Albumin/Globulin Ratio 1.6 Triglycerides Cholesterol LDL Cholesterol, Calc VLDL Cholesterol, Calc HDL Cholesterol Cholesterol/HDL Ratio Urine Color Yellow Urine Appearance Cloudy A Urine pH 6.5 Ur Specific [place] 1.007 Urine Protein Negative Urine Glucose (UA) Trace H Urine Ketones Negative Urine Blood Negative Urine Nitrite Negative Urine Bilirubin Negative Urine Urobilinogen Negative Ur Leukocyte Esterase Trace H Urine WBC (Auto) 0-5 Urine RBC (Auto) 0-2 U Hyaline Cast (Auto) 0-2 U Epithel Cells (Auto) >20 H Urine Bacteria (Auto) 2+ H Nasal Screen MRSA (PCR) Adenovirus (PCR) B. pertussis DNA (PCR) B.parapertussis DNA PCR C. pneumoniae DNA (PCR) Coronavirus OC43 (PCR) Coronavirus HKU1 (PCR) Coronavirus 229E (PCR) SARS-CoV-2 (PCR) Coronavirus NL63 (PCR) Human Metapneumovir PCR Influenza Type A (PCR) Influenza Type B (PCR) M. pneumoniae (PCR) Parainfluenza 1 (PCR) Parainfluenza 2 (PCR) Parainfluenza 3 (PCR) Parainfluenza 4 (PCR) RSV (PCR) Entero/Rhino (PCR) SARS-CoV-2, RNA, NAAT 08/22/23 08/22/23 08/22/23 20:46 20:55 21:23 WBC RBC Hgb POC Hgb 13.3 Hct POC Hct 39 MCV MCH MCHC RDW Std Deviation RDW Coeff of Micah Plt Count MPV Immature Gran % (Auto) Neut % (Auto) Lymph % (Auto) [place] % (Auto) Eos % (Auto) Baso % (Auto) Neut # (Auto) Lymph # (Auto) [place] # (Auto) Eos # (Auto) Baso # (Auto) Immature Gran # (Auto) Hypersegmented Neuts PT INR APTT PTT Ratio POC Sodium 136 Sodium POC Potassium 3.5 Potassium POC Chloride 101 Chloride Carbon Dioxide POC Total CO2 23 L Anion Gap POC Anion Gap 17.0 POC BUN 16 BUN Creatinine POC Creatinine 0.7 Est Cr Clr Drug Dosing Est GFR ( Amer) Est GFR (Non-Af Amer) BUN/Creatinine Ratio Glucose POC Glucose POC Glucose (other) 240 H Estimat Average Glucose Hemoglobin A1c Lactate 1.3 Calcium POC Ioniz Calcium [place] 1.20 Magnesium Total Bilirubin AST ALT Alkaline Phosphatase Troponin I High Sens Total Protein Albumin Globulin Albumin/Globulin Ratio Triglycerides Cholesterol LDL Cholesterol, Calc VLDL Cholesterol, Calc HDL Cholesterol Cholesterol/HDL Ratio Urine Color Urine Appearance Urine pH Ur Specific [place] Urine Protein Urine Glucose (UA) Urine Ketones Urine Blood Urine Nitrite Urine Bilirubin Urine Urobilinogen Ur Leukocyte Esterase Urine WBC (Auto) Urine RBC (Auto) U Hyaline Cast (Auto) U Epithel Cells (Auto) Urine Bacteria (Auto) Nasal Screen MRSA (PCR) Adenovirus (PCR) B. pertussis DNA (PCR) B.parapertussis DNA PCR C. pneumoniae DNA (PCR) Coronavirus OC43 (PCR) Coronavirus HKU1 (PCR) Coronavirus 229E (PCR) SARS-CoV-2 (PCR) Coronavirus NL63 (PCR) Human Metapneumovir PCR Influenza Type A (PCR) Influenza Type B (PCR) M. pneumoniae (PCR) Parainfluenza 1 (PCR) Parainfluenza 2 (PCR) Parainfluenza 3 (PCR) Parainfluenza 4 (PCR) RSV (PCR) Entero/Rhino (PCR) SARS-CoV-2, RNA, NAAT NEGATIVE 08/22/23 08/23/23 08/23/23 21:25 01:21 04:07 WBC 19.64 H RBC 4.28 Hgb 12.0 POC Hgb Hct 36.4 L POC Hct MCV 85.0 MCH 28.0 MCHC 33.0 RDW Std Deviation 44.7 RDW Coeff of Micah 14.6 H Plt Count 483 H MPV 8.6 L Immature Gran % (Auto) 0.7 Neut % (Auto) 61.5 Lymph % (Auto) 30.3 [place] % (Auto) 6.5 Eos % (Auto) 0.6 Baso % (Auto) 0.4 Neut # (Auto) 12.10 H Lymph # (Auto) 5.95 H [place] # (Auto) 1.28 H Eos # (Auto) 0.11 Baso # (Auto) 0.07 Immature Gran # (Auto) 0.13 Hypersegmented Neuts PT INR APTT PTT Ratio POC Sodium Sodium 135 L POC Potassium Potassium 3.8 POC Chloride Chloride 105 Carbon Dioxide 24 POC Total CO2 Anion Gap 6 POC Anion Gap POC BUN BUN 14 Creatinine 0.66 POC Creatinine Est Cr Clr Drug Dosing 51.9 Est GFR ( Amer) 104.5 Est GFR (Non-Af Amer) 90.1 BUN/Creatinine Ratio 21.2 H Glucose 137 H POC Glucose 132 H POC Glucose (other) Estimat Average Glucose Cancelled Hemoglobin A1c Cancelled Lactate Calcium 8.8 POC Ioniz Calcium [place] Magnesium Total Bilirubin AST ALT Alkaline Phosphatase Troponin I High Sens Total Protein Albumin Globulin Albumin/Globulin Ratio Triglycerides 174 H Cholesterol 104 LDL Cholesterol, Calc 31 VLDL Cholesterol, Calc 35 H HDL Cholesterol 38 Cholesterol/HDL Ratio 2.7 Urine Color Urine Appearance Urine pH Ur Specific [place] Urine Protein Urine Glucose (UA) Urine Ketones Urine Blood Urine Nitrite Urine Bilirubin Urine Urobilinogen Ur Leukocyte Esterase Urine WBC (Auto) Urine RBC (Auto) U Hyaline Cast (Auto) U Epithel Cells (Auto) Urine Bacteria (Auto) Nasal Screen MRSA (PCR) Adenovirus (PCR) Not Detected B. pertussis DNA (PCR) Not Detected B.parapertussis DNA PCR Not Detected C. pneumoniae DNA (PCR) Not Detected Coronavirus OC43 (PCR) Not Detected Coronavirus HKU1 (PCR) Not Detected Coronavirus 229E (PCR) Not Detected SARS-CoV-2 (PCR) Not Detected Coronavirus NL63 (PCR) Not Detected Human Metapneumovir PCR Not Detected Influenza Type A (PCR) Not Detected Influenza Type B (PCR) Not Detected M. pneumoniae (PCR) Not Detected Parainfluenza 1 (PCR) Not Detected Parainfluenza 2 (PCR) Not Detected Parainfluenza 3 (PCR) Not Detected Parainfluenza 4 (PCR) Not Detected RSV (PCR) Not Detected Entero/Rhino (PCR) Not Detected SARS-CoV-2, RNA, NAAT 08/23/23 08/23/23 08/23/23 06:13 08:52 Unknown WBC RBC Hgb POC Hgb Hct POC Hct MCV MCH MCHC RDW Std Deviation RDW Coeff of Micah Plt Count MPV Immature Gran % (Auto) Neut % (Auto) Lymph % (Auto) [place] % (Auto) Eos % (Auto) Baso % (Auto) Neut # (Auto) Lymph # (Auto) [place] # (Auto) Eos # (Auto) Baso # (Auto) Immature Gran # (Auto) Hypersegmented Neuts PT INR APTT PTT Ratio POC Sodium Sodium POC Potassium Potassium POC Chloride Chloride Carbon Dioxide POC Total CO2 Anion Gap POC Anion Gap POC BUN BUN Creatinine POC Creatinine Est Cr Clr Drug Dosing Est GFR ( Amer) Est GFR (Non-Af Amer) BUN/Creatinine Ratio Glucose POC Glucose 119 H 139 H POC Glucose (other) Estimat Average Glucose Hemoglobin A1c Lactate Calcium POC Ioniz Calcium [place] Magnesium Total Bilirubin AST ALT Alkaline Phosphatase Troponin I High Sens Total Protein Albumin Globulin Albumin/Globulin Ratio Triglycerides Cholesterol LDL Cholesterol, Calc VLDL Cholesterol, Calc HDL Cholesterol Cholesterol/HDL Ratio Urine Color Urine Appearance Urine pH Ur Specific [place] Urine Protein Urine Glucose (UA) Urine Ketones Urine Blood Urine Nitrite Urine Bilirubin Urine Urobilinogen Ur Leukocyte Esterase Urine WBC (Auto) Urine RBC (Auto) U Hyaline Cast (Auto) U Epithel Cells (Auto) Urine Bacteria (Auto) Nasal Screen MRSA (PCR) Pending Adenovirus (PCR) B. pertussis DNA (PCR) B.parapertussis DNA PCR C. pneumoniae DNA (PCR) Coronavirus OC43 (PCR) Coronavirus HKU1 (PCR) Coronavirus 229E (PCR) SARS-CoV-2 (PCR) Coronavirus NL63 (PCR) Human Metapneumovir PCR Influenza Type A (PCR) Influenza Type B (PCR) M. pneumoniae (PCR) Parainfluenza 1 (PCR) Parainfluenza 2 (PCR) Parainfluenza 3 (PCR) Parainfluenza 4 (PCR) RSV (PCR) Entero/Rhino (PCR) SARS-CoV-2, RNA, NAAT Diagnostic Findings Head CT 08/22/23 20:26 CR Exam(s): CT HEAD Without Contrast EXAM: CT Head Without Intravenous Contrast CLINICAL HISTORY: Reason for exam: dizziness, slurred speech. TECHNIQUE: Axial computed tomography images of the head/brain without intravenous contrast. CTDI is 38.6 mGy and DLP is 624.41 mGy-cm. Automated exposure control was utilized for the study. A dose lowering technique was utilized adhering to the principles of ALARA. COMPARISON: 04/19/2021 FINDINGS: Brain: Unremarkable. No hemorrhage. No significant white matter disease. No edema. Ventricles: Unremarkable. No ventriculomegaly. Bones/joints: Unremarkable. No acute fracture. Soft tissues: Unremarkable. Sinuses: Unremarkable as visualized. No acute sinusitis. Mastoid air cells: Unremarkable as visualized. No mastoid effusion. IMPRESSION: Normal head/brain CT. Communications: Call Doctor Stroke Electronically signed by: Arturo Davis MD 08/22/23 21:25 PM Head CTA 08/22/23 20:26 CR Exam(s): CTA HEAD With Contrast IV Amt: 119ml EXAM: CT Angiography Head With Intravenous Contrast CLINICAL HISTORY: Reason for exam: dizziness, slurred speech. TECHNIQUE: Axial computed tomographic angiography images of the head with intravenous contrast. CTDI is 38.6 mGy and DLP is 624.41 mGy-cm. Automated exposure control was utilized for the study. A dose lowering technique was utilized adhering to the principles of ALARA. MIP reconstructed images were created and reviewed. CONTRAST: Patient received 119ml of IV contrast COMPARISON: 04/19/2021 FINDINGS: Right internal carotid artery: No acute findings. Intracranial segment is patent with no significant stenosis. No aneurysm. Right anterior cerebral artery: Unremarkable. No occlusion or significant stenosis. No aneurysm. Right middle cerebral artery: Unremarkable. No occlusion or significant stenosis. No aneurysm. Right posterior cerebral artery: Unremarkable. No occlusion or significant stenosis. No aneurysm. Right vertebral artery: Unremarkable as visualized. Left internal carotid artery: No acute findings. Intracranial segment is patent with no significant stenosis. No aneurysm. Left anterior cerebral artery: Unremarkable. No occlusion or significant stenosis. No aneurysm. Left middle cerebral artery: Unremarkable. No occlusion or significant stenosis. No aneurysm. Left posterior cerebral artery: Unremarkable. No occlusion or significant stenosis. No aneurysm. Left vertebral artery: Unremarkable as visualized. Basilar artery: Unremarkable. No occlusion or significant stenosis. No aneurysm. IMPRESSION: Normal head CTA. Communications: Call Doctor Stroke Electronically signed by: Arturo Davis MD 08/22/23 21:29 PM Neck CTA 08/22/23 20:26 CR Exam(s): CTA NECK With Contrast IV Amt: 119ml EXAM: CT Angiography Neck With Intravenous Contrast CLINICAL HISTORY: Reason for exam: dizziness, slurred speech. TECHNIQUE: Routine carotid CT angiography protocol was performed with intravenous contrast. NASCET criteria using the distal ICAs for comparison were used for evaluation of stenoses. CTDI is 38.6 mGy and DLP is 624.41 mGy-cm. Automated exposure control was utilized for the study. A dose lowering technique was utilized adhering to the principles of ALARA. MIP reconstructed images were created and reviewed. CONTRAST: Patient received 119ml of IV contrast COMPARISON: None. FINDINGS: VASCULATURE: Right common carotid artery: Dense calcific atherotic change at the distal right common carotid artery extending into the proximal right ICA without focal stenosis. No dissection. Right internal carotid artery: See above. Right external carotid artery: Unremarkable. No occlusion. Right vertebral artery: Unremarkable. No occlusion or significant stenosis. No dissection. Left common carotid artery: Unremarkable. No occlusion or significant stenosis. No dissection. Left internal carotid artery: See below. Left external carotid artery: Unremarkable. No occlusion. Left vertebral artery: Unremarkable. No occlusion or significant stenosis. No dissection. Other vasculature: Mild calcific atherosclerotic change at the left carotid bifurcation. NECK: Bones/joints: Unremarkable. No acute fracture. Soft tissues: Unremarkable. Lung apices: Clear. CAROTID STENOSIS REFERENCE USING NASCET CRITERIA: % ICA stenosis = (1 - narrowest ICA diameter/diameter of distal cervical ICA) x 100. Mild - <50% stenosis. Moderate - 50-69% stenosis. Severe - 70-94% stenosis. Near occlusion - 95-99% stenosis. Occluded - 100% stenosis. IMPRESSION: No acute findings in the arteries of the neck. Communications: Call Doctor Stroke Electronically signed by: Arturo Davis MD 08/22/23 21:31 PM Electronically signed by: Scott Madera M.D. 08/23/2023 7:38 AM Abdomen/Pelvis CT 08/22/23 22:52 Exam(s): CT ABDOMEN + PELVIS With Contrast IV Amt: 119 ml optiray 320 EXAM: CT Abdomen and Pelvis With Intravenous Contrast CLINICAL HISTORY: Reason for exam: dizziness, nausea, dyspnea, leukocytosis. TECHNIQUE: Axial computed tomography images of the abdomen and pelvis with intravenous contrast. CTDI is 13.28 mGy and DLP is 736.29 mGy-cm. Automated exposure control was utilized for the study. A dose lowering technique was utilized adhering to the principles of ALARA. CONTRAST: Patient received 119 ml optiray 320 of IV contrast COMPARISON: No relevant prior studies available. FINDINGS: Lung bases: Unremarkable. No mass. No consolidation. ABDOMEN: Liver: Unremarkable. No mass. Gallbladder and bile ducts: Cholecystectomy. No ductal dilation. Pancreas: Unremarkable. No mass. No ductal dilation. Spleen: Unremarkable. No splenomegaly. Adrenals: Unremarkable. No mass. Kidneys and ureters: Unremarkable. No solid mass. No hydronephrosis. Stomach and bowel: Unremarkable. No obstruction. No mucosal thickening. PELVIS: Appendix: No findings to suggest acute appendicitis. Bladder: Unremarkable. No mass. Reproductive: LEFT ovarian cyst measures 3.1 x 2.4 cm. ABDOMEN and PELVIS: Intraperitoneal space: Unremarkable. No free air. No significant fluid collection. Bones/joints: Degenerative changes of the spine. No acute fracture. No dislocation. Soft tissues: Unremarkable. Vasculature: Atherosclerotic changes of the aorta. No abdominal aortic aneurysm. Lymph nodes: Unremarkable. No enlarged lymph nodes. IMPRESSION: LEFT ovarian cyst measures 3.1 x 2.4 cm. Nonemergent pelvic ultrasound follow-up recommended. Electronically signed by: Sherman Cool MD 08/23/23 01:46 AM Chest CTA 08/22/23 22:52 Exam(s): CTA CHEST IV Amt: 119 ml optiray 320 EXAM: CT Angiography Chest With Intravenous Contrast CLINICAL HISTORY: Reason for exam: leukocytosis, cough, dyspnea xr ?LL pna. TECHNIQUE: Axial computed tomographic angiography images of the chest with intravenous contrast. CTDI is 13.28 mGy and DLP is 736.29 mGy-cm. Automated exposure control was utilized for the study. A dose lowering technique was utilized adhering to the principles of ALARA. MIP reconstructed images were created and reviewed. COMPARISON: No relevant prior studies available. FINDINGS: Pulmonary arteries: Unremarkable. No acute pulmonary embolism. Aorta: Atherosclerotic changes of the aorta. No thoracic aortic aneurysm. Lungs: Mild centrilobular emphysema. No mass. No consolidation. Pleural space: Unremarkable. No significant effusion. No pneumothorax. Heart: Unremarkable. No cardiomegaly. No significant pericardial effusion. No evidence of RV dysfunction. Bones/joints: Degenerative changes of the spine. No acute fracture. No dislocation. Soft tissues: Unremarkable. Lymph nodes: Unremarkable. No enlarged lymph nodes. Liver: Hepatic steatosis. IMPRESSION: No acute pulmonary embolism. Electronically signed by: Sherman Cool MD 08/23/23 01:37 AM Brain MRI 08/23/23 00:04 CR Exam(s): MRI HEAD Without Contrast EXAM: MR Head Without Intravenous Contrast CLINICAL HISTORY: Reason for exam: tia. TECHNIQUE: Magnetic resonance images of the head/brain without intravenous contrast in multiple planes. COMPARISON: Comparison made to prior head CT from August 22, 2023 at 8:59 PM. FINDINGS: The study is suboptimal secondary to motion artifact. Brain: There is a tiny acute ischemic injury within the left pulvinar nucleus. Mild nonspecific white matter changes. The flow voids at the base of the brain are intact. No mass. No hemorrhage. Ventricles: Unremarkable. No ventriculomegaly. Bones/joints: Mild to moderate facet arthropathy at C2-3 through C5-6. No acute fracture. Sinuses: Unremarkable as visualized. No acute sinusitis. Mastoid air cells: Unremarkable as visualized. No mastoid effusion. Orbits: Bilateral lens replacements. IMPRESSION: Findings concerning for a tiny focus of acute ischemic injury within the left pulvinar nucleus. Communications: Verify Receipt Electronically signed by: Mariya Márquez MD 08/23/23 02:34 AM
--- NOTE | 2023-08-23 14:53 | Hospitalist Progress Note ---
Date of Service August 23, 2023 Assessment & Plan (1) Encephalopathy: Plan: Acute metabolic encephalopathy Likely multifactorial secondary to CVA, UTI Mental status seem to be back to baseline Imaging studies as below Monitor Acute CVA--POA --MRI brain:Findings concerning for a tiny focus of acute ischemic injury within the left pulvinar nucleus. --Head CTA:Normal head CTA --Neck CTA:No acute findings in the arteries of the neck. --Lipid Panel reviewed. LDL 31 --ECHO pending Appreciate neurology input PT OT, speech eval requested Continue aspirin, statin Amlodipine, valsartan held to allow permissive hypertension Suspected UTI Urine culture not contributory--likely contaminated sample Empirically on Rocephin Repeat urine culture Acute Bronchitis COPD No pneumonia on CTA No wheezing on exam Procalcitonin pending Empirically on Rocephin, doxycycline Hypertension Resume amlodipine, valsartan as able Monitor BP DM II HbA1c 6.8 Hold p.o. medications Continue insulin while hospitalized Monitor BGs Hyperlipidemia on statin Other chronic conditions PFO Intellectual impairment as per records Anxiety/mood disorder--continue home medication ongoing tobacco abuse--counseled to quit DVT Px: Lovenox SQ Code Status Full code Disposition PT OT prior to discharge Admission and Anticipated Discharge Date Admission Date: August 22, 2023 Subjective Patient is seen and examined at bedside Subjectively feels speech is back to baseline Feels better today Admits to have chronic cough Denies any chest pain, dyspnea, nausea, vomiting, abdominal pain, focal weakness Review of Systems Review of Systems: All systems reviewed & are unremarkable except as noted in Subjective Physical Exam Physical Exam: Physical Exam: Vitals signs as noted above General Appearance:Moderately built and nourished, no apparent distress Head: normocephalic, Atraumatic Eyes: normal inspection, EOMI Neck: supple, Trachea midline Respiratory/Chest: Decreased breath sounds, CTA, No accessory muscle use Cardiovascular: S1, S2, No murmur Abdomen/GI:Soft, Non tender, Bowel sounds present Extremities/Musculoskeletal:normal inspection, no edema Neurologic/Psych:AAOX3, grossly no focal neurological deficits, decreased hearing Skin: normal color, warm Results & Data Results & Data Vital Signs (Past 12 Hours) Vital Signs Pulse Resp BP Pulse Ox 08/23/23 07:45 150/76 H 08/23/23 07:44 91 H 16 97 08/23/23 07:30 76 17 92 08/23/23 07:30 122/64 08/23/23 07:15 84 17 95 08/23/23 07:15 148/73 H 08/23/23 07:13 82 08/23/23 07:00 85 16 96 08/23/23 07:00 151/82 H 08/23/23 06:45 132/73 08/23/23 06:45 86 19 96 08/23/23 06:30 146/70 H 08/23/23 06:30 84 17 96 08/23/23 06:15 151/96 H 08/23/23 06:15 92 H 22 08/23/23 06:00 86 15 97 08/23/23 06:00 143/71 H 08/23/23 05:45 69 15 144/81 H 95 08/23/23 05:30 70 15 106/51 L 95 08/23/23 05:15 74 16 117/60 97 08/23/23 05:00 73 17 120/64 95 08/23/23 04:45 72 15 103/59 L 95 08/23/23 04:30 78 15 119/65 96 08/23/23 04:15 78 16 140/72 97 08/23/23 04:00 71 16 104/55 L 97 08/23/23 03:45 79 17 152/60 H 97 08/23/23 03:30 113/54 L 08/23/23 03:15 67 16 134/70 95 08/23/23 03:00 69 15 148/74 H 96 Laboratory Results Short CBC 08/22/23 08/23/23 Range/Units 20:07 04:07 WBC 23.01 H 19.64 H (4.8-10.8) K/ul Hgb 13.1 12.0 (12.0-16.0) g/dl Hct 39.6 36.4 L (37.0-47.0) % Plt Count 546 H 483 H (130-400) K/uL BMP 08/22/23 08/23/23 20:07 04:07 Sodium 135 L 135 L Potassium 3.8 3.8 Chloride 102 105 Carbon Dioxide 22 24 BUN 17 14 Creatinine 0.82 0.66 Glucose 239 H 137 H Calcium 9.8 8.8 Liver Function 08/22/23 Range/Units 20:07 Total Bilirubin 0.4 (0.2-1.0) mg/dl AST 18 (13-39) U/L ALT 16 (7-52) U/L Alkaline Phosphatase 87 (34-104) U/L Albumin 4.6 (3.4-5.0) gm/dl Urine 08/22/23 Range/Units 20:08 Urine Color Yellow Urine Appearance Cloudy A (Clear) Urine pH 6.5 (4.5-7.5) Ur Specific [place] 1.007 (1.000-1.030) Urine Protein Negative (Negative) Urine Glucose (UA) Trace H (Negative)
[2023-08-23] MEDS: LATANOPROST 0.005% OP SOLN 2.5 ML BTL OPB SCH (20:23)
[2023-08-23] MEDS: DOXYCYCLINE HYCLATE 100 MG CAP PO SCH (20:24)
[2023-08-23] MEDS: LANTUS PER UNIT CHARGE SQ SCH (20:32)
[2023-08-23] MEDS: cefTRIAXone SODIUM 2,000 MG/50 ML BAG IV SCH (20:35)
[2023-08-23] MEDS: PHENAZOPYRIDINE HCL 100 MG TAB PO PRN (21:47)
[2023-08-23] MEDS ORDERED: COUGH DROP (SUGAR FREE) LOZ 24 LOZ/1 BOX BUCCAL PRN (22:26)
--- OUTSIDE RECORDS SUMMARY | 2023-08-24 04:08 | External Medical Summary | Summary of Care ---
Author Name Unknown Organization [facility] Address [address] [facility] [place] [address] Phone [phone] Care Team Providers Care Plastic Press Molder Name Role Phone Charlotte Cornejo DO Primary Care Provider [phone] Reason for Visit * Reason Onset Date Comments Med Request 06/05/2023 Encounter Details Date Type Department Care Team (Late st Contact Info) Description 06/05/2023 Telephone Family Practice [facility] [address] [place] [address] Charlotte Cornejo DO [address] [place] [address] Med Request Allergies No known active allergiesdocumented as of this encounter (statuses as of 06/08/2023) Medications Medication Sig Dispensed Refills Start Date End Date Status Zoster Vac Recomb Adjuvanted 50 MCG/0.5ML Intramuscular Suspension Reconstituted (Shingrix)Indication s:Need for vaccination for zoster Inject 0.5 mL into a large muscle now and repeat dose in 60 to 180 days 1 Each 1 11/07/2021 Active Valsartan 80 MG Oral Tablet (Diovan)Indications: HTN, goal below 140/90 Take 1 Tablet by mouth in the morning. 90 Tablet 3 07/18/2022 Active amLODIPine Besylate 10 MG Oral Tablet (Norvasc)Indications :HTN, goal below 130/80 Take 1 Tablet by mouth in the morning. 90 Tablet 3 09/07/2022 Active oxyCODONE-Acetaminop hen 5-325 MG Oral Tablet (Percocet) Take 1 Tablet by mouth every 6 hours as needed for Pain, Breakthrough. 14 Tablet 0 11/17/2022 Active Additional Information Patient not taking.Reported on 05/08/2023 Ventolin HFA 108 (90 Base) MCG/ACT Inhalation Aerosol SolutionIndications: Chronic nonspecific lung disease,Chronic rhinitis INHALE BY MOUTH 2 PUFFS IN THE MORNING AND 2 PUFFS AT NOON AND 2 PUFFS IN THE EVENING AND 2 PUFFS BEFORE BEDTIME. 18 g 5 02/13/2023 Active Atorvastatin Calcium 20 MG Oral Tablet (Lipitor)Indications :Dyslipidemia Take 1 Tablet by mouth in the morning. 30 Tablet 5 05/08/2023 Active metFORMIN HCl ER 500 MG Oral Tablet Extended Release 24 Hour (Glucophage XR)Indications:Type 2 diabetes mellitus without complication, without long-term current use of insulin (HCC) Take 1 Tablet by mouth in the morning. 90 Tablet 3 05/08/2023 Active Mirtazapine 15 MG Oral Tablet (Remeron)Indications :Moderate episode of recurrent major depressive disorder (HCC),Psychophysiolo gical insomnia TAKE 1 TABLET BY MOUTH EVERYDAY AT BEDTIME 30 Tablet 5 05/28/2023 Active Nicotine 14 MG/24HR Transdermal Patch 24 Hour ([employer] Nicotine Transdermal System) Place 1 Patch over 24 hours topically on the skin daily. 28 Patch 0 06/08/2023 Active documented as of this encounter (statuses as of 06/08/2023) Active Problems Problem Noted Date Diagnosed Date Bandemia 04/18/2023 Thrombocytosis 04/18/2023 Type 2 diabetes mellitus with diabetic cataract 09/07/2022 Iron deficiency 06/22/2022 Iron deficiency anemia 06/22/2022 Malnutrition of moderate degree 05/11/2022 Age-related cataract of both eyes 05/11/2022 Sensorineural hearing loss (SNHL) of both ears 0 05/11/2022 Diabetes mellitus without complication Chronic obstructive pulmonary disease 11/07/2021 Dyslipidemia 11/07/2021 Vitamin D deficiency 11/07/2021 Postmenopausal status, age-related 11/07/2021 Fatigue 04/19/2021 Altered mental status 04/19/2021 Controlled substance agreement signed 06/21/2018 HTN, goal below 130/80 04/04/2016 Special screening for malignant neoplasms, colon 01/24/2011 Dyslipidemia, goal LDL below 100 08/10/2010 Chronic cholecystitis 05/21/2008 H. 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 Tobacco use disorder 06/01/1999 DEPRESS PSYCHOSIS-SEVERE ORGANIC BRAIN SYND NEC documented as of this encounter (statuses as of 06/08/2023) Resolved Problems Problem Noted Date Diagnosed Date Resolved Date Food insecurity 12/19/2021 02/23/2022 Overview: Per [facility] Protocol PARONYCHIA FINGER 01/24/2011 09/25/2017 Acute URI 01/24/2011 09/25/2017 Respiratory symptoms 06/02/2010 018 Overview: ICD-10 update of inactive term Acute bronchitis, complicated 06/02/2010 09/25/2017 Pneumonia due to organism 06/02/2010 Overview: ICD-10 update of inactive term ACUTE SINUSITIS NOS 02/24/2003 05/28/19 09 Overview: Resolved per [facility] Acute Dxs Protocol #3 ACUTE URI NOS 02/24/2003 05/28/2008 Overview: Resolved per Benign Acute Dxs Protocol #3 MYALGIAS 02/24/2003 09/25/2017 Painful respiration 02/24/2003 09/26/19 18 Cough 08/01/2001 09/25/2017 PAIN IN LIMB, BILATERAL FOREARMS 08/01/2001 09/25/2017 DYSPEPSIA 08/01/2001 09/25/2017 Polyuria 08/01/2001 09/25/2017 ACUTE BRONCHITIS 06/01/1999 09/25/2017 Unspecified viral infection, in conditions classified elsewhere and of unspecified site 06/01/1999 09/25/2017 Other specified menopausal a nd postmenopausal disorder 09/25/2017 documented as of this encounter (statuses as of 06/08/2023) Immunizations Name Administration Dates Next Due Pneumococcal Conjugate Vacci ne, 20-valent ([id number]) 11/07/2021 Pneumococcal Polysaccharide PPV23 (Pneumovax) 02/10/2010 Seasonal Influenza, Quadriva lent Hd (Fluzone Hd) 01/27/2022 Seasonal Influenza, Quadriva lent, No Preserve, IM 11/22/2017,03/16/2015 Seasonal Influenza, Split, I IV3, With Preserve, Inj 03/30/2014,01/20/2013,02/10/2010,04/09(Deferred: Patient Refused) 03/30/2015 TD - Tetanus/Diptheria (ADULT) 01/21/2013(Deferr ed: Patient Refused) TDAP (age 11 and older)(Adacel) 10/15/2010,02/1002/11/2020 Zoster Vaccine Recombinant (Shingrix) 11/07/2021 documented as of this encounter Social History Tobacco Use Types Packs/Day Years Used Date Smoking Tobacco: Some Days Cigarettes 1 30 Smokeless Tobacco: Never Comments:pt states that she has a few left in her pack and is not getting anymore Alcohol Use Standard Drinks/Week Comments Yes 0 (1 standard drink = 0.6 oz pur e alcohol) rare social PHQ-2 Answer Date Recorded PHQ Adult Total Score 0 11/07/2021 Hunger Vital Sign Answer Date Recorded Within the past 12 months, y ou worried that your food would run out before you got the money to buy more. Never true 02/15/20 22 Within the past 12 months, t he food you bought just didn't last and you didn't have money to get more. Never true 02/14/2022 Sex and Gender Information Value Date Recorded Sex Assigned at Female 10/16/2018 6:23 PM EDT Gender Identity Female 10/16/2018 6:23 PM EDT Sexual Orientation Straight 10/16/2018 6: 23 PM EDT Job Start Date Occupation Industry Not on file Not on file Not on file documented as of this encounter Miscellaneous Notes * Telephone Encounter - Jackie Antonio LPN - 06/08/2023 3:48 PM EST Notified patient that script was sent in. No further questions at this time * Telephone Encounter - Charlotte Cornejo DO - 06/08/2023 12:11 PM EST sent * Telephone Encounter - Jackie Villafana OSA - 06/07/2023 11:59 AM EST [place] is calling back, she is not entirely sure how much she was smoking, possible around a halfa pack a day. She has been trying to ween herself off and hasn't been smoking much at all for the last two weeks. * Telephone Encounter - Zuly Tavares LPN - 06/07/2023 8:20 AM EST Tried calling [facility], left message to return call. [place]. Need to know how much Nya smokes a day, approx. It determines what dose patch she is started at. * Telephone Encounter - Hanh Brewer LPN - 06/05/2023 2:39 PM EST Called cell number of pt and and no answer at this time. * Telephone Encounter - Charlotte Cornejo DO - 06/05/2023 1:55 PM EST How much does she smoke? * Telephone Encounter - Brent Rubio protective signal repairer helper - 06/05/2023 12:06 PM EST Pt calling to request patches to help quit smoking - previous pt of Dr. Emery Pt did not want to schedule an appointment at this time. [id number]- [place] Thank youBrent Hardware Installer I [facility] 06/05/2023,12:07 PM documented in this encounter Plan of Treatment Upcoming Encounters Date Type Department Care Team (Latest Contact Info) Description 08/13/2023 12:20 PM EDT Office Visit [facility] [address] [facility] [place] [address] Charlotte Cornejo DO [address] [place] [address] 09/28/2023 2:00 PM EDT Hospital Encounter ENDO [facility], Endoscopy Room [facility] [address] [place] [phone] Rosalba Oates MD [address] [place] [address] 09/28/2023 2:00 PM EDT - 09/28/2023 2:30 PM EDT Surgery ENDO [facility], Endoscopy Room [facility] [address] [facility] [place] [phone] Rosalba Oates MD [address] [place] [address] COLONOSCOPY FLEXIBLE PROXIMAL DIAGNOSTIC 10/17/2023 1:30 PM EDT Laboratory Laboratory [address] [place] [phone] [place] [address] 10/24/2023 2:00 PM EDT Office Visit Hematology/Oncolog y Clari Perez [place] [address] [place] [phone] Amarilis Hernandez MD [address] [place] [address] Scheduled Procedures Name Priority Associated Diagnoses Date/Ti me COLONOSCOPY FLEXIBLE PROXIMAL DIAGNOSTIC Recall Special screening for malignant neoplasms, colon 09/28/2023 2:00 PM EDT Health Maintenance Due Date Last Done Comments DISCUSS TOBACCO CESSATION (REFER TO SMARTSET #4611) 1954 Alpha-1 Antitrypsin 1972 Hepatitis C Screening 1972 Cologuard 1999 Fecal Occult Blood Test 1999 Sigmoidoscopy 1999 DTaP,Tdap,and Td Vaccines (3 - Td or Tdap) 10/15/2020 10/15/2010, 02/10/2010 Zoster Vaccines (2 of 2) 01/02/2022 11/07/2021 Colonoscopy 03/19/2022 03/19/2012, 03/19/2012 Colorectal Cancer Screening 03/19/2022 Depression Screening 11/07/2022 11/07/2021 COVID-19 Vaccine ( - season) 2022 Influenza Vaccine (FLU shot) (#1) 2022 01/27/2022, 11/22/2017, 03/16/2015, Additional history exists Albumin/Creatinine Ratio 05/11/2023 05/11/2022 Diabetic Foot Exam 05/11/2023 05/11/2022 Diabetic Eye Exam 07/04/2023 07/03/2022, 04/04/2022 HbA1c 10/10/2023 04/11/2023, 040 06/2022, 02/15/2022, Additional history exists DXA Scan 01/04/2024 01/03/2022, 08/07, 08/20/2007, Additional history exists Mammogram 01/16/2024 01/15/2023, 12/09, 12/15/2021, Additional history exists O2 ASSESSMENT COMPLETED IN PAST YEAR FOR COPD 04/18/2024 04/18/2023 GFR 05/24/2024 05/24/2023, 010 06/2023, 09/22/2022, Additional history exists Lipid Panel 05/28/2028 05/28/2023, 08/0 04/2021, 07/22/2020, Additional history exists Pneumococcal Vaccine: 65+ Years Completed 11/07/2021, 02/10/2010 LUNG CANCER SCREENING - USE SMARTSET 30677 Completed 05/24/2023, 03/08/2023, 03/01/2022, Additional history exists GARDASIL-HPV IMMUNIZATION SERIES Aged Out No longer eligible based on patient's age to complete this topic Hepatitis B Aged Out No longer eligi ble based on patient's age to complete this topic MENINGOCOCCAL (MENACTRA/MENVEO) Aged Out No longer eligible based on patient's age to complete this topic documented as of this encounter Medical Devices Not on filedocumented as of this encounter Visit Diagnoses Diagnosis Tobacco abuse- Primary Tobacco use disorder Special screening for malignant neoplasms, colon documented in this encounter Care Teams Plastic Press Molder Relationship Specialty Start Date End Date Charlotte Cornejo DO [address] [place] [address] PCP - General Family Medicine 06/05/23 documented as of this encounter
--- OUTSIDE RECORDS SUMMARY | 2023-08-24 04:08 | External Medical Summary | Summary of Care ---
Author Name Unknown Organization [facility] Address [address] [facility] [place] [address] Phone [phone] Care Team Providers Care Salesperson [employer] Name Role Phone Delio Cornejo DO Primary Care Provider [phone] Reason for Visit * Reason Comments eRx-Medication Refill Encounter Details Date Type Department Care Team (Late st Contact Info) Description 07/08/2023 Refill Family Practice [facility] [address] [facility] [place] [address] Fred Eng DO [address] [place] [address] HTN, goal below 130/80 Allergies No known active allergiesdocumented as of this encounter (statuses as of 07/09/2023) Medications Medication Sig Dispensed Refills Start Date End Date Status Zoster Vac Recomb Adjuvanted 50 MCG/0.5ML Intramuscular Suspension Reconstituted (Shingrix)Indicati ons:Need for vaccination for zoster Inject 0.5 mL into a large muscle now and repeat dose in 60 to 180 days 1 Each 1 11/07/2021 Active Valsartan 80 MG Oral Tablet (Diovan)Indication s:HTN, goal below 140/90 Take 1 Tablet by mouth in the morning. 90 Tablet 3 07/18/2022 Active oxyCODONE-Acetamin ophen 5-325 MG Oral Tablet (Percocet) Take 1 Tablet by mouth every 6 hours as needed for Pain, Breakthrough. 14 Tablet 0 11/17/2022 Active Additional Information Patient not taking.Reported on 05/08/2023 Ventolin HFA 108 (90 Base) MCG/ACT Inhalation Aerosol SolutionIndication s:Chronic nonspecific lung disease,Chronic rhinitis INHALE BY MOUTH 2 PUFFS IN THE MORNING AND 2 PUFFS AT NOON AND 2 PUFFS IN THE EVENING AND 2 PUFFS BEFORE BEDTIME. 18 g 5 02/13/2023 Active Atorvastatin Calcium 20 MG Oral Tablet (Lipitor)Indicatio ns:Dyslipidemia Take 1 Tablet by mouth in the morning. 30 Tablet 5 05/08/2023 Active metFORMIN HCl ER 500 MG Oral Tablet Extended Release 24 Hour (Glucophage XR)Indications:Typ e 2 diabetes mellitus without complication, without long-term current use of insulin (HCC) Take 1 Tablet by mouth in the morning. 90 Tablet 3 05/08/2023 Active Mirtazapine 15 MG Oral Tablet (Remeron)Indicatio ns:Moderate episode of recurrent major depressive disorder (HCC),Psychophysio logical insomnia TAKE 1 TABLET BY MOUTH EVERYDAY AT BEDTIME 30 Tablet 5 05/28/2023 Active Nicotine 14 MG/24HR Transdermal Patch 24 Hour ([employer] Nicotine Transdermal System) Place 1 Patch over 24 hours topically on the skin daily. 28 Patch 0 06/08/2023 Active amLODIPine Besylate 10 MG Oral Tablet (Norvasc)Indicatio ns:HTN, goal below 130/80 TAKE 1 TABLET BY MOUTH EVERY DAY IN THE MORNING 90 Tablet 3 07/09/2023 Active amLODIPine Besylate 10 MG Oral Tablet (Norvasc)Indicatio ns:HTN, goal below 130/80 Take 1 Tablet by mouth in the morning. 90 Tablet 3 09/07/2022 07/09/19 24 Discontinued documented as of this encounter (statuses as of 07/09/2023) Active Problems Problem Noted Date Diagnosed Date [...] as of this encounter (statuses as of 07/09/2023) Resolved Problems Problem Noted Date Diagnosed Date [...] as of this encounter (statuses as of 07/09/2023) Immunizations Name Administration Dates Next Due Pneumococcal Conjugate Vacci ne, 20-valent ([id number]) 11/07/2021 Pneumococcal Polysaccharide PPV23 (Pneumovax) 02/10/2010 Seasonal [...] encounter Miscellaneous Notes * Telephone Encounter - Noam Torres [facility] - 07/09/2023 11:58 AM EDT Signed Prescriptions: Disp Refills amLODIPine Besylate 10 MG Oral Tablet (Nor*90 Tab*3 Sig: TAKE 1 TABLET BY MOUTH EVERY DAY IN THE MORNINGAuthorizing Provider: DELIO CORNEJO User: NOAM TORRES documented in this encounter Plan of Treatment Upcoming Encounters Date Type Department Care Team (Latest Contact Info) Description 08/13/2023 12:20 PM EDT Office Visit [facility] [address] [facility] [place] [address] Delio Cornejo DO [address] [place] [address] 09/28/2023 2:00 PM EDT Hospital Encounter ENDO [facility], Endoscopy Room [facility] [address] [place] [phone] Rosalba Oates MD [address] [place] [address] 09/28/2023 2:00 PM EDT - 09/28/2023 2:30 PM EDT Surgery ENDO [facility], Endoscopy Room [facility] [address] [place] [phone] Rosalba Oates MD [address] [place] [address] COLONOSCOPY FLEXIBLE PROXIMAL DIAGNOSTIC 10/17/2023 1:30 PM EDT Laboratory Laboratory [address] [place] [phone] [address] [place] [address] 10/24/2023 2:00 PM EDT Office Visit Hematology/Oncolog y Clari Perez [place] [address] [place], [place] [phone] Amarilis Hernandez MD [address] [place], [place] [address] Scheduled Procedures Name Priority Associated Diagnoses Date/Ti me COLONOSCOPY FLEXIBLE PROXIMAL DIAGNOSTIC Recall Special screening for malignant neoplasms, colon 09/28/2023 2:00 PM EDT Health Maintenance Due Date Last Done Comments DISCUSS TOBACCO CESSATION (REFER TO SMARTSET #1115) 1954 Alpha-1 Antitrypsin 1972 Hepatitis C Screening 1972 Cologuard 1999 Fecal Occult Blood Test 1999 Sigmoidoscopy 1999 DTaP,Tdap,and Td Vaccines (3 - Td or Tdap) 10/15/2020 10/15/2010, 02/10/2010 Zoster Vaccines (2 of 2) 01/02/2022 11/07/2021 Colonoscopy 03/19/2022 03/19/2012, 03/19/2012 Colorectal Cancer Screening 03/19/2022 Depression Screening 11/07/2022 11/07/2021 COVID-19 Vaccine ( - season) 2022 Albumin/Creatinine Ratio 05/11/2023 05/11/2022 Diabetic Foot Exam 05/11/2023 05/11/2022 Diabetic Eye Exam 07/04/2023 07/03/2022, 04/04/2022 HbA1c 10/10/2023 04/11/2023, 04/0 06/2022, 02/15/2022, Additional history exists Influenza Vaccine (FLU shot) (Season Ended) 2023 01/27/2022, 11/22/2017, 03/16/2015, Additional history exists DXA Scan 01/04/2024 01/03/2022, 08/07, 08/20/2007, Additional history exists Mammogram 01/16/2024 01/15/2023, 12/09, 12/15/2021, Additional history exists O2 ASSESSMENT COMPLETED IN PAST YEAR FOR COPD 04/18/2024 04/18/2023 GFR 05/24/2024 05/24/2023, 06/2023, 09/22/2022, Additional history exists Lipid Panel 05/28/2028 05/28/2023, 04/2021, 07/22/2020, Additional history exists Pneumococcal Vaccine: 65+ Years Completed 11/07/2021, 02/10/2010 LUNG CANCER SCREENING - USE SMARTSET [id number] Completed 05/24/2023, 03/08/2023, 03/01/2022, Additional history exists [...] as of this encounter Visit Diagnoses Diagnosis HTN, goal below 130/80 Unspecified essential hypertension Special screening for malignant neoplasms, colon documented in this encounter Care Teams Salesperson [employer] Relationship Specialty Start Date End Date Delio Cornejo DO [address] [place] [address] PCP - General Family Medicine 06/05/23 documented as of this encounter
--- OUTSIDE RECORDS SUMMARY | 2023-08-24 04:08 | External Medical Summary | Summary of Care ---
Author Name Unknown Organization [facility] Address [address] [facility] [place] [address] Phone [phone] Care Team Providers Care Branch Or Department Chief Librarian Name Role Phone Charlotte Cornejo DO Primary Care Provider [phone] Reason for Visit * Reason Onset Date Comments Med Request 07/17/2023 Encounter Details Date Type Department Care Team (Late st Contact Info) Description 07/17/[address] [facility] [address] [place] [address] Charlotte Cornejo DO [address] [place] [address] Med Request Allergies No known active allergiesdocumented as of this encounter (statuses as of 07/17/2023) Medications Medication Sig Dispensed Refills Start Date End Date Status Zoster Vac Recomb Adjuvanted 50 MCG/0.5ML Intramuscular Suspension Reconstituted (Shingrix)Indicatio ns:Need for vaccination for zoster Inject 0.5 mL into a large muscle now and repeat dose in 60 to 180 days 1 Each 1 11/07/2021 Active oxyCODONE-Acetamino phen 5-325 MG Oral Tablet (Percocet) Take 1 Tablet by mouth every 6 hours as needed for Pain, Breakthrough. 14 Tablet 0 11/17/2022 Active Additional Information Patient not taking.Reported on 05/08/2023 Ventolin HFA 108 (90 Base) MCG/ACT Inhalation Aerosol SolutionIndications :Chronic nonspecific lung disease,Chronic rhinitis INHALE BY MOUTH 2 PUFFS IN THE MORNING AND 2 PUFFS AT NOON AND 2 PUFFS IN THE EVENING AND 2 PUFFS BEFORE BEDTIME. 18 g 5 02/13/2023 Active Atorvastatin Calcium 20 MG Oral Tablet (Lipitor)Indication s:Dyslipidemia Take 1 Tablet by mouth in the morning. 30 Tablet 5 05/08/2023 Active metFORMIN HCl ER 500 MG Oral Tablet Extended Release 24 Hour (Glucophage XR)Indications:Type 2 diabetes mellitus without complication, without long-term current use of insulin (HCC) Take 1 Tablet by mouth in the morning. 90 Tablet 3 05/08/2023 Active Mirtazapine 15 MG Oral Tablet (Remeron)Indication s:Moderate episode of recurrent major depressive disorder (HCC),Psychophysiol ogical insomnia TAKE 1 TABLET BY MOUTH EVERYDAY AT BEDTIME 30 Tablet 5 05/28/2023 Active Nicotine 14 MG/24HR Transdermal Patch 24 Hour ([employer] Nicotine Transdermal System) Place 1 Patch over 24 hours topically on the skin daily. 28 Patch 0 06/08/2023 Active amLODIPine Besylate 10 MG Oral Tablet (Norvasc)Indication s:HTN, goal below 130/80 TAKE 1 TABLET BY MOUTH EVERY DAY IN THE MORNING 90 Tablet 3 07/09/2023 Active Valsartan 80 MG Oral Tablet (Diovan)Indications :HTN, goal below 140/90 Take 1 Tablet by mouth in the morning. 90 Tablet 0 07/17/2023 Active Valsartan 80 MG Oral Tablet (Diovan)Indications :HTN, goal below 140/90 Take 1 Tablet by mouth in the morning. 90 Tablet 3 07/18/2022 Discontinue d(Refill) documented as of this encounter (statuses as of 07/17/2023) Active Problems Problem Noted Date Diagnosed Date [...] as of this encounter (statuses as of 07/17/2023) Resolved Problems Problem Noted Date Diagnosed Date [...] as of this encounter (statuses as of 07/17/2023) Immunizations Name Administration Dates Next Due Pneumococcal Conjugate Vacci ne, 20-valent ([id number]) 11/07/2021 Pneumococcal Polysaccharide PPV23 (Pneumovax) 02/10/2010 Seasonal [...] encounter Miscellaneous Notes * Telephone Encounter - Loyda Cuellar CRNP - 07/17/2023 3:13 PM EDT Sent medication Recommend to keep routine appt with pcp next month * Telephone Encounter - Jose Luis Davidson RN - 07/17/2023 3:02 PM EDT Please see previous message. Called and spoke with Charlotte, pharmacist at [facility]. She said the metformin was filled on 05/10/2023 for 90-day supply and the Ventolin was filled on 06/30/2023 and that bothare too soon for refill, but that both prescriptions do have refills, so no new prescription is needed. Called [place] and informed her of Charlotte's previous message. She verbalized understanding. She said they do not need Ventolin, but Valsartan. Called and spoke with Charlotte at [facility] pharmacy and she said they do need a prescription for Valsartan. Did you pend patient's preferred pharmacy and medication before forwarding?yes Pharmacy: [id number] [id number] [facility] Pending Prescriptions: Disp Refills Valsartan 80 MG Oral Tablet (Diovan) 90 Tab*3 Sig: Take 1 Tablet by mouth in the morning. Last Visit: 05/08/2023 (in office), Visit date not found (telemedicine) Next Visit: 08/13/2023 If no future appointments scheduled, and last appointment is greater than a year ago, please schedule patient for a follow-up appointment Last date the medication was ordered: 07/18/2022 Is this request for a controlled substance?No Urine Drug Screen:No results found for this or any previous visit. Patient Phone Numbers Labs: Lab Results Component Value Date/Time CREAT 0.84 05/24/2023 12:00 AM CREAT 0.8 05/21/2019 01:25 PM POTASSIUM 3.5 05/24/2023 12:00 AM POTASSIUM 5.2 (H) 05/21/2019 01:25 PM TSH 1.45 02/15/2022 09:06 AM TSH 1.23 03/16/2015 03:03 PM LDLCALC 73 11/07/2021 09:42 AM LDLCALC 106 08/09/2017 12:26 PM LDLDIRECT 61 05/28/2023 03:29 PM LDLDIRECT 98 05/21/2019 01:25 PM ALT 25 04/11/2023 11:10 AM ALT 15 05/21/2019 01:25 PM HGBA1C 6.7 (H) 04/11/2023 11:10 AM HGBA1C 6.6 (H) 05/21/2019 01:25 PM * Telephone Encounter - Stephanie Edmonds OSA - 07/17/2023 1:18 PM EDT [place] called in requesting an approval per the pharmacy for the metformin and Ventolin HFA 108 .Please follow Up with Rica. Thank you. documented in this encounter Plan of Treatment Upcoming Encounters Date Type Department Care Team (Latest Contact Info) Description 08/13/2023 12:20 PM EDT Office Visit Family [facility] [address] [place] [address] Charlotte Cornejo DO [address] [place] [address] 09/28/2023 2:00 PM EDT Hospital Encounter ENDO [facility], Endoscopy Room [facility] [address] [place] [phone] Rosalba Oates MD [address] [place] [address] 09/28/2023 2:00 PM EDT - 09/28/2023 2:30 PM EDT Surgery ENDO [facility], Endoscopy Room [facility] [address] [place] [phone] Rosalba Oates MD [address] [place] [address] COLONOSCOPY FLEXIBLE PROXIMAL DIAGNOSTIC 10/17/2023 1:30 PM EDT Laboratory Laboratory [address] [place] [phone] [place], [address] [place] [address] 10/24/2023 2:00 PM EDT Office Visit Hematology/Oncolog y [facility] [place] [address] [place] [phone] Amarilis Hernandez MD [address] [place] [address] Scheduled Procedures Name Priority Associated Diagnoses Date/Ti me COLONOSCOPY FLEXIBLE PROXIMAL DIAGNOSTIC Recall Special screening for malignant neoplasms, colon 09/28/2023 2:00 PM EDT Health Maintenance Due Date Last Done Comments DISCUSS TOBACCO CESSATION (REFER TO SMARTSET #8124) 1955 Alpha-1 Antitrypsin 1972 Hepatitis C Screening 1972 Cologuard 1999 Fecal Occult Blood Test 1999 Sigmoidoscopy 1999 DTaP,Tdap,and Td Vaccines (3 - Td or Tdap) 10/15/2020 10/15/2010, 02/10/2010 Zoster Vaccines (2 of 2) 01/02/2022 11/07/2021 Colonoscopy 03/19/2022 03/19/2012, 03/19/2012 Colorectal Cancer Screening 03/19/2022 COVID-19 Vaccine ( - season) 2022 Albumin/Creatinine [...] 02/10/2010 LUNG CANCER SCREENING - USE SMARTSET 61907 Completed 05/24/2023, 03/08/2023, 03/01/2022, Additional history exists [...] encounter Visit Diagnoses Diagnosis HTN, goal below 140/90 Unspecified essential hypertension Special screening for malignant neoplasms, colon documented in this encounter Care Teams Branch Or Department Chief Librarian Relationship Specialty Start Date End Date Charlotte Cornejo DO [address] [place] [address] PCP - General Family Medicine 06/05/23 documented as of this encounter
--- OUTSIDE RECORDS SUMMARY | 2023-08-24 04:08 | External Medical Summary | Summary of Care ---
Author Name Unknown Organization [facility] Address [address] [facility] [place] [address] Phone [phone] Care Team Providers Care Manager Books Name Role Phone Charlotte Cornejo DO Primary Care Provider [phone] Reason for Visit * Reason Onset Date Comments Med Request 06/05/2023 Encounter Details Date Type Department Care Team (Late st Contact Info) Description 06/05/2023 Telephone Family Practice [facility] [address] [place] [address] Charlotte Cornejo DO [address] [place] [address] Med Request Allergies No known active allergiesdocumented [...] Nicotine 14 MG/24HR Transdermal Patch 24 Hour ([employer] Nicotine Transdermal System) Place 1 Patch over [...] Next Due Pneumococcal Conjugate Vacci ne, 20-valent ([id number]) 11/07/2021 Pneumococcal Polysaccharide PPV23 (Pneumovax) 02/10/2010 Seasonal [...] encounter Miscellaneous Notes * Telephone Encounter - Charlotte Cornejo DO [...] smoke? * Telephone Encounter - Brent Rubio presser all around - 06/05/2023 12:06 PM EST Pt calling to request patches to help quit smoking - previous pt of Dr. Emery Pt did not want to schedule an appointment at this time. [id number] [address] [place] Thank you, Brent Rubio Care Clinician I [facility] ([facility])(formerly Telepharmacy) 06/05/2023,12:07 PM documented in this encounter Plan of Treatment Upcoming Encounters Date Type Department Care Team (Latest Contact Info) Description 08/13/2023 12:20 PM EDT Office Visit [facility] [address] [place] [address] Charlotte Cornejo DO [address] [place] [address] 09/28/2023 2:00 PM EDT Hospital Encounter ENDO [facility], Endoscopy Room [facility] [address] [place] [phone] Rosalba Oates MD [address] [place] [address] 09/28/2023 2:00 PM EDT - 09/28/2023 2:30 PM EDT Surgery ENDO [facility], Endoscopy Room [facility] [address] [place] [phone] Rosalba Oates MD [address] [place] [id number] COLONOSCOPY FLEXIBLE PROXIMAL DIAGNOSTIC 10/17/2023 1:30 PM EDT Laboratory Laboratory [address] [place] [phone] [place] [address] 10/24/2023 2:00 PM EDT Office Visit Hematology/Oncolog [facility] [address] [place] [phone] Amarilis Hernandez MD [address] [place] [address] Scheduled Procedures Name Priority Associated Diagnoses Date/Ti me COLONOSCOPY FLEXIBLE PROXIMAL DIAGNOSTIC Recall Special screening for malignant neoplasms, colon 09/28/2023 2:00 PM EDT Health Maintenance Due Date Last Done Comments DISCUSS TOBACCO CESSATION (REFER TO SMARTSET #6119) 1955 Alpha-1 Antitrypsin 1972 Hepatitis C Screening [...] 04/11/2023, 04/0 06/2022, 02/15/2022, Additional history exists DXA Scan 01/04/2024 01/03/2022, 08/07, 08/20/2007, Additional history exists Mammogram 01/16/2024 01/15/2023, 12/09, 12/15/2021, Additional history exists O2 ASSESSMENT COMPLETED IN PAST YEAR FOR COPD 04/18/2024 04/18/2023 GFR 05/24/2024 05/24/2023, 01/0 06/2023, 09/22/2022, Additional history exists Lipid Panel 05/28/2028 05/28/2023, 08/0 04/2021, 07/22/2020, Additional history exists Pneumococcal Vaccine: 65+ Years Completed 11/07/2021, 02/10/2010 LUNG CANCER SCREENING - USE SMARTSET 97725 Completed 05/24/2023, 03/08/2023, 03/01/2022, Additional history exists [...] colon documented in this encounter Care Teams Manager Books Relationship Specialty Start Date End Date Charlotte Cornejo DO [address] [place] [address] PCP - General Family Medicine 06/05/23 documented as of this encounter
--- OUTSIDE RECORDS SUMMARY | 2023-08-24 04:09 | External Medical Summary | Summary of Care ---
Author Name Unknown Organization [facility] Address [address] [facility] [place] [address] Phone [phone] Care Team Providers Care Merry Go Round Attendant Name Role Phone Delio Cornejo DO Primary Care Provider [phone] Reason for Visit * Reason Comments eRx-Medication Refill Encounter Details Date Type Department Care Team (Late st Contact Info) Description 05/25/2023 Refill Family Practice [facility] [address] [facility] [place] [address] Fred Eng DO [address] [place] [address] Moderate episode of recurrent major depressive disorder (HCC); Psychophysiological insomnia Allergies No known active allergiesdocumented as of this encounter (statuses as of 05/28/2023) Medications Medication Sig Dispensed Refills Start Date End Date Status Zoster Vac Recomb Adjuvanted 50 MCG/0.5ML Intramuscular Suspension Reconstituted (Shingrix)Indicatio ns:Need for vaccination for zoster Inject 0.5 mL into a large muscle now and repeat dose in 60 to 180 days 1 Each 1 2 Active Valsartan 80 MG Oral Tablet (Diovan)Indications :HTN, goal below 140/90 Take 1 Tablet by mouth in the morning. 90 Tablet 3 3 Active amLODIPine Besylate 10 MG Oral Tablet (Norvasc)Indication s:HTN, goal below 130/80 Take 1 Tablet by mouth in the morning. 90 Tablet 3 3 Active oxyCODONE-Acetamino phen 5-325 MG Oral Tablet (Percocet) Take 1 Tablet by mouth every 6 hours as needed for Pain, Breakthrough. 14 Tablet 0 3 Active Additional Information Patient not taking.Reported on 05/08/2023 Ventolin HFA 108 (90 Base) MCG/ACT Inhalation Aerosol SolutionIndications :Chronic nonspecific lung disease,Chronic rhinitis INHALE BY MOUTH 2 PUFFS IN THE MORNING AND 2 PUFFS AT NOON AND 2 PUFFS IN THE EVENING AND 2 PUFFS BEFORE BEDTIME. 18 g 5 3 Active Atorvastatin Calcium 20 MG Oral Tablet (Lipitor)Indication s:Dyslipidemia Take 1 Tablet by mouth in the morning. 30 Tablet 5 4 Active metFORMIN HCl ER 500 MG Oral Tablet Extended Release 24 Hour (Glucophage XR)Indications:Type 2 diabetes mellitus without complication, without long-term current use of insulin (HCC) Take 1 Tablet by mouth in the morning. 90 Tablet 3 4 Active Mirtazapine 15 MG Oral Tablet (Remeron)Indication s:Moderate episode of recurrent major depressive disorder (HCC),Psychophysiol ogical insomnia TAKE 1 TABLET BY MOUTH EVERYDAY AT BEDTIME 30 Tablet 5 4 Active Mirtazapine 15 MG Oral Tablet Disintegrating (Remeron Soltab) Place 1 Tablet on tongue at bedtime. 0 05/28/19 24 Discontinued documented as of this encounter (statuses as of 05/28/2023) Active Problems Problem Noted Date Diagnosed Date Bandemia 04/18/2023 Thrombocytosis 04/18/2023 Type 2 diabetes mellitus with diabetic cataract 09/07/2022 Iron deficiency 06/22/2022 Iron deficiency anemia 06/22/2022 Malnutrition of moderate degree 05/11/2022 Age-related cataract of both eyes 05/11/2022 Sensorineural hearing loss (SNHL) of both ears 0 05/11/2022 Diabetes mellitus without complication 2 Chronic obstructive pulmonary disease 11/07/2021 Dyslipidemia 11/07/2021 [...] as of this encounter (statuses as of 05/28/2023) Resolved Problems Problem Noted Date Diagnosed Date [...] as of this encounter (statuses as of 05/28/2023) Immunizations Name Administration Dates Next Due Pneumococcal Conjugate Vacci ne, 20-valent ([id number]) 11/07/2021 Pneumococcal Polysaccharide PPV23 (Pneumovax) 02/10/2010 Seasonal [...] encounter Miscellaneous Notes * Telephone Encounter - Delio Cornejo DO - 05/28/2023 9:33 AM ESTSigned Prescriptions: Disp Refills Mirtazapine 15 MG Oral Tablet (Remeron) 30 Tab*5 Sig: TAKE 1 TABLET BY MOUTH EVERYDAY AT BEDTIME Authorizing Provider: DELIO CORNEJO * Telephone Encounter - Lidia Posada [facility] - 05/25/2023 3:24 PM ESTPending Prescriptions: Disp Refills Mirtazapine 15 MG Oral Tablet [Pharmacy Me*30 Tab*5 Sig: TAKE 1 TABLET BY MOUTH EVERYDAY AT BEDTIME * Telephone Encounter - Lidia Posada [facility] - 05/25/2023 3:24 PM EST Please advise. Med was d/gopal and changed to ODT. However, appears patient has been filling regular tablets. Please approve if appropriate. Thanks, Lidia Posada Clinical Pharmacist [facility] ([facility]) (Formerly Telepharmacy) [phone] 05/25/2023, 3:24 PM documented in this encounter Plan of Treatment Upcoming Encounters Date Type Department Care Team (Latest Contact Info) Description 05/28/2023 3:40 PM EST Laboratory Laboratory [address] [place] [phone] [place] [address] 08/13/2023 12:20 PM EDT Office Visit [address] [place] [address] Delio Cornejo DO [address] [place], [place] [address] 09/28/2023 2:00 PM EDT Hospital Encounter ENDO [facility], Endoscopy Room [facility] [address] [place], [place] [phone] Rosalba Oates MD [address] [place] [address] 09/28/2023 2:00 PM EDT - 09/28/2023 2:30 PM EDT Surgery [facility]O [facility], Endoscopy Room [facility] [address] [place] [phone] Rosalba Oates MD [address] [place] [address] COLONOSCOPY FLEXIBLE PROXIMAL DIAGNOSTIC 10/17/2023 1:30 PM EDT Laboratory Laboratory [address] [place] [phone] [address] [place] [address] 10/24/2023 2:00 PM EDT Office Visit Hematology/Oncolog y [facility] [address] [place] [address] Amarilis Hernandez MD [address] [place] [address] Scheduled Procedures Name Priority Associated Diagnoses Date/Ti me COLONOSCOPY FLEXIBLE PROXIMAL DIAGNOSTIC Recall Special screening for malignant neoplasms, colon 09/28/2023 2:00 PM EDT Health Maintenance Due Date Last Done Comments DISCUSS TOBACCO CESSATION (REFER TO SMARTSET #7391) 1955 Alpha-1 Antitrypsin 1972 Hepatitis C Screening 1972 Cologuard 1999 Fecal Occult Blood Test 1999 Sigmoidoscopy 1999 DTaP,Tdap,and Td Vaccines (3 - Td or Tdap) 10/15/2020 10/15/2010, 02/10/2010 Zoster Vaccines (2 of 2) 01/02/2022 11/07/2021 Colonoscopy 03/19/2022 03/19/2012, 03/19/2012 Colorectal Cancer Screening 03/19/2022 Depression Screening 11/07/2022 11/07/2021 COVID-19 Vaccine (1 - season) 2022 Influenza Vaccine (FLU shot) [...] 06/2023, 09/22/2022, Additional history exists Lipid Panel 11/07/2026 11/07/2021, 1 08/2020, 05/21/2019, Additional history exists Pneumococcal Vaccine: 65+ Years Completed 11/07/2021, 02/10/2010 LUNG CANCER SCREENING - USE SMARTSET 47107 Completed 05/24/2023, 03/08/2023, 03/01/2022, Additional history exists [...] as of this encounter Visit Diagnoses Diagnosis Moderate episode of recurrent major depressive disorder (HCC) Psychophysiological insomnia Persistent disorder of initiating or maintaining sleep Special screening for malignant neoplasms, colon documented in this encounter Care Teams Merry Go Round Attendant Relationship Specialty Start Date End Date Delio Cornejo DO [address] [place] [address] PCP - General Family Medicine 05/15/23 documented as of this encounter
--- OUTSIDE RECORDS SUMMARY | 2023-08-24 04:09 | External Medical Summary | Summary of Care ---
Author Name Unknown Organization [facility] Address [address] [facility] [address] Phone [phone] Care Team Providers Care Manager Gift Name Role Phone Charlotte Cornejo DO Primary Care Provider [phone] Reason for Visit * Reason Comments Outpatient Testing Encounter Details Date Type Department Care Team (Late st Contact Info) Description 05/28/2023 3:40 PM EST Laboratory Laboratory [address] [place] [phone] [place] [address] Dyslipidemia Allergies No known active allergiesdocumented as of [...] AT BEDTIME 30 Tablet 5 05/28/2023 Active documented as of this encounter (statuses [...] Next Due Pneumococcal Conjugate Vacci ne, 20-valent ([id number]) 11/07/2021 Pneumococcal Polysaccharide PPV23 (Pneumovax) 02/10/2010 Seasonal [...] on file documented as of this encounter Plan of Treatment Upcoming Encounters Date Type Department Care Team (Latest Contact Info) Description 08/13/2023 12:20 PM EDT Office Visit Family Practice [facility] [address] [place] [address] Charlotte Cornejo DO [address] [place] [address] 09/28/2023 2:00 PM EDT Hospital Encounter ENDO [facility], Endoscopy Room [facility] [address] [place] [phone] Rosalba Oates MD [address] [place] [phone] 09/28/2023 2:00 PM EDT - 09/28/2023 2:30 PM EDT Surgery ENDO [facility], Endoscopy Room [facility] [address] [place] [phone] Rosalba Oates MD [address] [place] [address] COLONOSCOPY FLEXIBLE PROXIMAL DIAGNOSTIC 10/17/2023 1:30 PM EDT Laboratory Laboratory [address] [place] [phone] [place], Lab [address] [place] [address] 10/24/2023 2:00 PM EDT Office Visit Hematology[facility]olog [facility] [place] [address] [place] [phone] Amarilis Hernandez MD [address] [place] [address] Pending Results Name Type Priority Associated Diagnoses Date /Time LIPID PANEL WITH DIRECT LDL IF TG IS HIGH Lab Routine Dyslipidemia 05/28/2023 3:29 PM EST Scheduled Procedures Name Priority Associated Diagnoses Date/Ti me COLONOSCOPY FLEXIBLE PROXIMAL DIAGNOSTIC Recall Special screening for malignant neoplasms, colon 09/28/2023 2:00 PM EDT Health Maintenance Due Date Last Done Comments DISCUSS TOBACCO CESSATION (REFER TO SMARTSET #6912) 1955 Alpha-1 Antitrypsin 1972 Hepatitis C Screening 1972 Cologuard 1999 Fecal Occult Blood Test 1999 Sigmoidoscopy 1999 DTaP,Tdap,and Td Vaccines (3 - Td or Tdap) 10/15/2020 10/15/2010, 02/10/2010 Zoster Vaccines (2 of 2) 01/02/2022 11/07/2021 Colonoscopy 03/19/2022 03/19/2012, 03/19/2012 Colorectal Cancer Screening 03/19/2022 Depression Screening 11/07/2022 11/07/2021 COVID-19 Vaccine ( season) 2022 Influenza Vaccine (FLU shot) (#1) [...] FOR COPD 04/18/2024 04/18/2023 GFR 05/24/2024 05/24/2023, 0 06/2023, 09/22/2022, Additional history exists Lipid Panel 11/07/2026 11/07/2021, 07/08, 05/21/2019, Additional history exists Pneumococcal Vaccine: 65+ Years Completed 11/07/2021, 02/10/2010 LUNG CANCER SCREENING - USE SMARTSET [id number] Completed 05/24/2023, 03/08/2023, 03/01/2022, Additional history exists [...] as of this encounter Visit Diagnoses Diagnosis Dyslipidemia Other and unspecified hyperlipidemia Special screening for malignant neoplasms, colon documented in this encounter Care Teams Manager Gift Relationship Specialty Start Date End Date Charlotte Cornejo DO [address] [place] [address] PCP - General Family Medicine 05/15/23 documented as of this encounter
--- OUTSIDE RECORDS SUMMARY | 2023-08-24 04:09 | External Medical Summary | Summary of Care ---
Author Name Unknown Organization [facility] Address [address] [facility] [address] Phone [phone] Care Team Providers Care Vendor Management Specialist Name Role Phone Charlotte Cornejo DO Primary Care Provider [phone] Encounter Details Date Type Department Care Team (Late st Contact Info) Description 05/28/2023 Orders Only Family Practice [facility] [address] [place] [address] Charlotte Cornejo DO [address] [place] [address] Allergies No known active allergiesdocumented as of this encounter (statuses as of 05/28/2023) Medications Medication Sig Dispensed Refills Start Date End Date Status Zoster Vac Recomb Adjuvanted 50 MCG/0.5ML Intramuscular Suspension Reconstituted (Shingrix)Indications :Need for vaccination for zoster Inject 0.5 mL into a large muscle now and repeat dose in 60 to 180 days 1 Each 1 11/07/2021 Active Valsartan 80 MG Oral Tablet (Diovan)Indications:H TN, goal below 140/90 Take 1 Tablet by mouth in the morning. 90 Tablet 3 07/18/2022 Active amLODIPine Besylate 10 MG Oral Tablet (Norvasc)Indications: HTN, goal below 130/80 Take 1 Tablet by mouth in the morning. 90 Tablet 3 09/07/2022 Active oxyCODONE-Acetaminoph en 5-325 MG Oral Tablet (Percocet) Take 1 Tablet by mouth every 6 hours as needed for Pain, Breakthrough. 14 Tablet 0 11/17/2022 Active Additional Information Patient not taking.Reported on 05/08/2023 Ventolin HFA 108 (90 Base) MCG/ACT Inhalation Aerosol SolutionIndications:C hronic nonspecific lung disease,Chronic rhinitis INHALE BY MOUTH 2 PUFFS IN THE MORNING AND 2 PUFFS AT NOON AND 2 PUFFS IN THE EVENING AND 2 PUFFS BEFORE BEDTIME. 18 g 5 02/13/2023 Active Mirtazapine 15 MG Oral Tablet Disintegrating (Remeron Soltab) Place 1 Tablet on tongue at bedtime. 0 Active Atorvastatin Calcium 20 MG Oral Tablet (Lipitor)Indications: Dyslipidemia Take 1 Tablet by mouth in the morning. 30 Tablet 5 05/08/2023 Active metFORMIN HCl ER 500 MG Oral Tablet Extended Release 24 Hour (Glucophage XR)Indications:Type 2 diabetes mellitus without complication, without long-term current use of insulin (HCC) Take 1 Tablet by mouth in the morning. 90 Tablet 3 05/08/2023 Active documented as of this encounter (statuses [...] Next Due Pneumococcal Conjugate Vacci ne, 20-valent ([id number]) 11/07/2021 Pneumococcal Polysaccharide PPV23 (Pneumovax) 02/10/2010 Seasonal [...] Description 05/28/2023 3:40 PM EST Laboratory Laboratory [address] [place] [phone] [address] [place] [address] 08/13/2023 12:20 PM EDT Office Visit Family Practice [facility] [address] [place] [address] Charlotte Cornejo, [address] [place] [address] 09/28/2023 2:00 PM EDT Hospital Encounter ENDO [facility], Endoscopy Room [facility] [address] [facility] [place] [phone] Rosalba Oates MD [address] [place] [address] 09/28/2023 2:00 PM EDT - 09/28/2023 2:30 PM EDT Surgery ENDO [facility], Endoscopy Room [facility] [address] [place] [phone] Rosalba Oates MD [address] [place] [address] COLONOSCOPY FLEXIBLE PROXIMAL DIAGNOSTIC 10/17/2023 1:30 PM EDT Laboratory Laboratory [address] [place] [address] [place], Lab [address] [place] [address] 10/24/2023 2:00 PM EDT Office Visit Hematology/Oncolog y [facility] [place] [address] [place] [address] Amarilis Hernandez MD [address] [place] [address] Scheduled Procedures Name Priority Associated Diagnoses Date/Ti me COLONOSCOPY FLEXIBLE PROXIMAL DIAGNOSTIC Recall Special screening for malignant neoplasms, colon 09/28/2023 2:00 PM EDT Health Maintenance Due Date Last Done Comments DISCUSS TOBACCO CESSATION (REFER TO SMARTSET #8548) 1955 Alpha-1 Antitrypsin 1972 Hepatitis C Screening [...] 01/16/2024 01/15/2023, 12/09, 12/15/2021, Additional history exists GFR 04/11/2024 05/24/2023, 01/0 06/2023, 09/22/2022, Additional history exists O2 ASSESSMENT COMPLETED IN PAST YEAR FOR COPD 04/18/2024 04/18/2023 Lipid Panel 11/07/2026 11/07/2021, 1 08/2020, 05/21/2019, Additional history exists Pneumococcal Vaccine: 65+ Years Completed 11/07/2021, 02/10/2010 LUNG CANCER SCREENING - USE SMARTSET 41156 Completed 05/24/2023, 03/08/2023, 03/01/2022, Additional history exists [...] Not on filedocumented as of this encounter Procedures Procedure Name Priority Date/Time Associated Diagnosis Comments CHEMISTRY-OUTSIDE Routine 05/24/2023 documented in this encounter Results * (ABNORMAL) CHEMISTRY-OUTSIDE (05/24/2023) Not all results display below - see scan for full detail SCAN INCLUDES ER [facility]: CBCD, CMP, UA OUTSIDE LAB (SEE SCANNED REPORT) CREATININE-OUTSI DE LAB 0.84 0.55 - 1.02 MG/DL OUTSIDE LAB (SEE SCANNED REPORT) EGFR-OUTSIDE LAB 75 >60 ML/MIN OU TSIDE LAB (SEE SCANNED REPORT) POTASSIUM-OUTSID E LAB 3.5 3.5 - 5.1 MMOL/L OUTSIDE LAB (SEE SCANNED REPORT) GLUCOSE-OUTSIDE LAB 152(A) 70 - 110 MG/DL OUTSIDE LAB (SEE SCANNED REPORT) HOURS FASTING OUTSID E LAB (SEE SCANNED REPORT) TRIGLYCERIDES-OU TSIDE LAB OUTSIDE LAB (SEE SCANNED REPORT) CHOLESTEROL-OUTS GREGOR LAB OUTSIDE LAB (SEE SCANNED REPORT) HDL-OUTSIDE LAB OUTS GREGOR LAB (SEE SCANNED REPORT) CHOL/HDL RATIO-OUTSIDE LAB OUTSIDE LAB (SEE SCANNED REPORT) LDL (CALCULATED)-OUT SIDE LAB OUTSIDE LAB (SEE SCANNED REPORT) LDL (DIRECT MEASURE)-OUTSIDE LAB OUTSIDE LAB (SEE SCANNED REPORT) HEMOGLOBIN, [id number] LAB OUTSIDE LAB (SEE SCANNED REPORT) PHOSPHORUS-OUTSI DE LAB OUTSIDE LAB (SEE SCANNED REPORT) PTH-OUTSIDE LAB OUTS GREGOR LAB (SEE SCANNED REPORT) MICROALBUMIN RATIO-OUTSIDE LAB OUTSIDE LAB (SEE SCANNED REPORT) PROTEIN, UA-OUTSIDE LAB TRACE(A) NEGATIVE OUTSIDE LAB (SEE SCANNED REPORT) HEMOGLOBIN-OUTSI DE LAB 12.3 12.0 - 16.0 GM/DL OUTSIDE LAB (SEE SCANNED REPORT) 05/24/2023 Benito Kent DO LABORATORY OUTSIDE LAB (SEE SCANNED REPORT) documented in this encounter Care Teams Vendor Management Specialist Relationship Specialty Start Date End Date Charlotte Cornejo DO [address] [place] [address] PCP - General Family Medicine 05/15/23 documented as of this encounter
--- OUTSIDE RECORDS SUMMARY | 2023-08-24 04:09 | External Medical Summary | Summary of Care ---
Author Name Unknown Organization [facility] Address [address] [facility] [place] [address] Phone [phone] Care Team Providers Care Coal Conveyor Operator Name Role Phone Charlotte Cornejo DO Primary Care Provider [phone] Reason for Visit * Reason Onset Date Comments Health Maintenance 06/08/2023 Encounter Details Date Type Department Care Team (Late st Contact Info) Description 06/08/2023 Telephone Family Practice [facility] [address] [place] [address] Charlotte Cornejo DO [address] [place] [address] Health Maintenance Allergies No known active allergiesdocumented as of [...] Next Due Pneumococcal Conjugate Vacci ne, 20-valent ([id number]) 11/07/2021 Pneumococcal Polysaccharide PPV23 (Pneumovax) 02/10/2010 Seasonal [...] encounter Miscellaneous Notes * Telephone Encounter - Azul PorrasERIN - 06/08/2023 9:07 AM EST Care Gaps Comprehensive Care Outreach Last Office/Telemedicine Visit: 05/08/2023 (in office), Visit date not found (telemedicine) Next Office Visit: 08/13/2023 Hemoglobin AIC Results: Lab Results Component Value Date/Time HEMOGLOBIN A1C - [facility] 6.7 (H) 04/11/2023 11:10 AM HEMOGLOBIN A1C - [facility] 6.0 (H) 07/10/2022 10:32 AM HEMOGLOBIN A1C - [facility] 5.9 (H) 02/15/2022 09:06 AM HEMOGLOBIN A1C - [facility] 6.6 (H) 05/21/2019 01:25 PM HEMOGLOBIN A1C - [facility] 6.5 (H) 06/26/2018 01:29 PM HEMOGLOBIN A1C - [facility] 5.9 07/16/2013 03:22 PM BP Readings from Last 1 Encounters: 05/08/23 140/60 Reviewed Health Maintenance below: Health Maintenance Topic Date Due DISCUSS TOBACCO CESSATION (REFER TO SMARTSET #3344) Never done Alpha-1 Antitrypsin Never done Hepatitis C Screening Never done DTaP,Tdap,and Td Vaccines (3 - Td or Tdap) 10/15/2020 Zoster Vaccines (2 of 2) 01/02/2022 Colorectal Cancer Screening 03/19/2022 Depression Screening 11/07/2022 Influenza Vaccine (FLU shot) (1) 12/08/2022 COVID-19 Vaccine (1 - 2022- season) Never done Albumin/Creatinine Ratio 05/11/2023 Diabetic Foot Exam 05/11/2023 Diabetic Eye Exam 07/04/2023 Colon already scheduled Care Gap Outreach Action Taken: Outreach not indicated documented in this encounter Plan of Treatment Upcoming Encounters Date Type Department Care Team (Latest Contact Info) Description 08/13/2023 12:20 PM EDT Office Visit Family Practice [facility] [address] [place] [address] Charlotte Cornejo DO [address] [place] [address] 09/28/2023 2:00 PM EDT Hospital Encounter ENDO [facility], Endoscopy Room [facility] [address] [place] [phone] Rosalba Oates MD [facility] [address] [place] [address] 09/28/2023 2:00 PM EDT - 09/28/2023 2:30 PM EDT Surgery ENDO [facility], Endoscopy Room [facility] [address] [facility] [place] [phone] Rosalba Oates MD [address] [place] [id number] COLONOSCOPY FLEXIBLE PROXIMAL DIAGNOSTIC 10/17/2023 1:30 PM EDT Laboratory Laboratory [address] [place] [phone] [place] [address] 10/24/2023 2:00 PM EDT Office Visit Hematology/Oncolog y [facility] [place] [address] [place] [address] Amarilis Hernandez MD [address] [place] [address] Scheduled Procedures Name Priority Associated Diagnoses Date/Ti me COLONOSCOPY FLEXIBLE PROXIMAL DIAGNOSTIC Recall Special screening for malignant neoplasms, colon 09/28/2023 2:00 PM EDT Health Maintenance Due Date Last Done Comments DISCUSS TOBACCO CESSATION (REFER TO SMARTSET #2456) 1955 Alpha-1 Antitrypsin 1972 Hepatitis C Screening [...] Additional history exists Lipid Panel 05/28/2028 05/28/2023, 080 04/2021, 07/22/2020, Additional history exists Pneumococcal Vaccine: 65+ Years Completed 11/07/2021, 02/10/2010 LUNG CANCER SCREENING - USE SMARTSET 41565 Completed 05/24/2023, 03/08/2023, 03/01/2022, Additional history exists [...] Not on filedocumented as of this encounter Care Teams Coal Conveyor Operator Relationship Specialty Start Date End Date Charlotte Cornejo DO [address] [place] [address] PCP - General Family Medicine 06/05/23 documented as of this encounter
--- OUTSIDE RECORDS SUMMARY | 2023-08-24 04:09 | External Medical Summary | Summary of Care ---
Author Name Unknown Organization [facility] Address [address] [place] [address] Phone [phone] Care Team Providers Care Proof Tester Name Role Phone Charlotte Cornejo DO Primary Care Provider [phone] Encounter Details Date Type Department Care Team (Late st Contact Info) Description 05/24/2023 Result Scan Unspecified Department <No scans attached> Allergies No known active allergiesdocumented as of [...] Next Due Pneumococcal Conjugate Vacci ne, 20-valent ([id number]) 11/07/2021 Pneumococcal Polysaccharide PPV23 (Pneumovax) 02/10/2010 Seasonal [...] Description 05/28/2023 3:40 PM EST Laboratory Laboratory [address] [place] [address] [place] [address] 08/13/2023 12:20 PM EDT Office Visit Family Practice [facility] [address] [place] [address] Charlotte Cornejo DO [address] [place] [address] 09/28/2023 2:00 PM EDT Hospital Encounter ENDO [facility], Endoscopy Room [facility] [address] [phone] Rosalba Oates MD [address] [place] [address] 09/28/2023 2:00 PM EDT - 09/28/2023 2:30 PM EDT Surgery ENDO [facility], Endoscopy Room [facility] [address] [place] [address] Rosalba Oates MD [address] [place] [address] COLONOSCOPY FLEXIBLE PROXIMAL DIAGNOSTIC 10/17/2023 1:30 PM EDT Laboratory Laboratory [address] [place] [address] [place], [address] [place] [address] 10/24/2023 2:00 PM EDT Office Visit Hematology/Oncolog y [facility] [place] [address] [place] [address] Amarilis Hernandez MD [address] [place] [address] Scheduled Procedures Name Priority Associated Diagnoses Date/Ti me COLONOSCOPY FLEXIBLE PROXIMAL DIAGNOSTIC Recall Special screening for malignant neoplasms, colon 09/28/2023 2:00 PM EDT Health Maintenance Due Date Last Done Comments DISCUSS TOBACCO CESSATION (REFER TO SMARTSET #2589) 1955 Alpha-1 Antitrypsin 1972 Hepatitis C Screening [...] 02/10/2010 LUNG CANCER SCREENING - USE SMARTSET 14215 Completed 05/24/2023, 03/08/2023, 03/01/2022, Additional history exists [...] Procedure Name Priority Date/Time Associated Diagnosis Comments RADIOLOGY SCANNED RESULT 05/24/2023 RADIOLOGY SCANNED RESULT 05/24/2023 RADIOLOGY SCANNED RESULT 05/24/2023 RADIOLOGY SCANNED RESULT 05/24/2023 documented in this encounter Results * RADIOLOGY SCANNED RESULT (05/24/2023) 05/24/2023 No Physician Data Unknown DIAGNOSTIC RAD IOLOGY SERVICES * RADIOLOGY SCANNED RESULT (05/24/2023) 05/24/2023 No Physician Data Unknown DIAGNOSTIC RAD IOLOGY SERVICES * RADIOLOGY SCANNED RESULT (05/24/2023) 05/24/2023 No Physician Data Unknown DIAGNOSTIC RAD IOLOGY SERVICES * RADIOLOGY SCANNED RESULT (05/24/2023) 05/24/2023 No Physician Data Unknown DIAGNOSTIC RAD IOLOGY SERVICES documented in this encounter Care Teams Proof Tester Relationship Specialty Start Date End Date Charlotte Cornejo DO [address] [place] [address] PCP - General Family Medicine 05/15/23 documented as of this encounter
--- OUTSIDE RECORDS SUMMARY | 2023-08-24 04:09 | External Medical Summary ---
Author Name Unknown Address Unknown Organization K01:LABORATORY [facility] - [address] [place] [address] Laboratory Report Ordering Provider Test Date Status FRAN MCKEON 05/28/2023 15:29:01 Final Observation Date Value Abnormality Reference (Units ) Status Triglyceride 05/28/2023 15:29:01 251 Above high normal <=174 (mg/dL) Final Triglyceride Reference Range s (mg/dL):
<150 Acceptable
150-174 Borderline high
175-499 High
>=500 Very high Cholesterol 05/28/2023 15:29:01 145 <200 (mg /dL) Final Total Cholesterol Reference Ranges (mg/dL):
<200 Desirable
200-239 Borderline high
>=240 High HDL 05/28/2023 15:29:01 39 Below low normal >49 (mg/dL) Final HDL Cholesterol Reference Ra nges (mg/dL):
>=60 High (Desirable)
<50 Low (Undesirable) For Females
<40 Low (Undesirable) For Males NON-HDL CHOLESTEROL 05/28/2023 15:29:01 106 <=159 (mg/dL) Final Non-HDL Cholesterol Referenc e Range (mg/dL):
<100 Target level for high risk ASCVD patient
<130 Optimal for general population
130-159 Near optimal for general population
160-189 Borderline High
190-219 High
>=220 Very High Performing Location LAB[facility]ATORY [facility] - [address] [place] [address]
--- OUTSIDE RECORDS SUMMARY | 2023-08-24 04:09 | External Medical Summary ---
Author Name Unknown Address Unknown Organization K01:LABORATORY [facility] - [address] [place] [address] Laboratory Report Ordering Provider Test Date Status FRAN MCKEON 05/28/2023 15:29:01 Final Observation Date Value Abnormality Reference (Units ) Status LDL, (direct) 05/28/2023 15:29:01 61 <=129 (mg/dL) Final LDL Cholesterol Reference Ra nges (mg/dL):
<70 Target level for high risk ASCVD patient
<100 Optimal for general population
100-129 Near optimal for general population
130-159 Borderline high
160-189 High
>=190 Very high Performing Location LAB[facility]ATORY [facility] - [address] [place] [address]
--- OUTSIDE RECORDS SUMMARY | 2023-08-24 04:09 | External Medical Summary | Summary of Care ---
Author Name Unknown Organization [facility] Address [address] [facility] [place] [address] Phone [phone] Care Team Providers Care Zipper Setter Lockstitch Name Role Phone Charlotte Cornejo DO Primary Care Provider [phone] Reason for Visit * Reason Onset Date Comments Follow Up 05/28/2023 Encounter Details Date Type Department Care Team (Late st Contact Info) Description 05/28/2023 Telephone Family Practice [facility] [address] [place] [address] Charlotte Cornejo DO [address] [place] [address] Follow Up Allergies No known active allergiesdocumented as of this encounter (statuses as of 06/05/2023) Medications Medication Sig Dispensed Refills Start Date [...] as of this encounter (statuses as of 06/05/2023) Active Problems Problem Noted Date Diagnosed Date [...] as of this encounter (statuses as of 06/05/2023) Resolved Problems Problem Noted Date Diagnosed Date [...] as of this encounter (statuses as of 06/05/2023) Immunizations Name Administration Dates Next Due Pneumococcal Conjugate Vacci ne, 20-valent ([id number]) 11/07/2021 Pneumococcal Polysaccharide PPV23 (Pneumovax) 02/10/2010 Seasonal [...] Telephone Encounter - Charlotte Cornejo DO - 05/28/2023 9:37 AM EST Pt needs hospital follow up appt documented in this encounter Plan of Treatment Upcoming Encounters Date Type Department Care Team (Latest Contact Info) Description 08/13/2023 12:20 PM EDT Office Visit [address] [place] [address] Charlotte Cornejo DO [address] [place], [place] [address] 09/28/2023 2:00 PM EDT Hospital Encounter ENDO [facility], Endoscopy Room [facility] [address] [place], [place] [phone] Rosalba Oates MD [address] [place] [address] 09/28/2023 2:00 PM EDT - 09/28/2023 2:30 PM EDT Surgery ENDO [facility], Endoscopy Room [facility] [address] [place] [phone] Rosalba Oates MD [address] [place] [address] COLONOSCOPY FLEXIBLE PROXIMAL DIAGNOSTIC 10/17/2023 1:30 PM EDT Laboratory Laboratory [address] [place] [phone] [address] [place] [address] 10/24/2023 2:00 PM EDT Office Visit Hematology/Oncolog y [facility] [place] [address] [facility] [place] [phone] Amarilis Hernandez MD [address] [place] [address] Scheduled Procedures Name Priority Associated Diagnoses Date/Ti me COLONOSCOPY FLEXIBLE PROXIMAL DIAGNOSTIC Recall Special screening for malignant neoplasms, colon 09/28/2023 2:00 PM EDT Health Maintenance Due Date Last Done Comments DISCUSS TOBACCO CESSATION (REFER TO SMARTSET #8479) 1955 Alpha-1 Antitrypsin 1972 Hepatitis C Screening [...] 02/10/2010 LUNG CANCER SCREENING - USE SMARTSET [id number] Completed 05/24/2023, 03/08/2023, 03/01/2022, Additional history exists [...] filedocumented as of this encounter Care Teams Zipper Setter Lockstitch Relationship Specialty Start Date End Date Charlotte Cornejo DO [address] [place] [address] PCP - General Family Medicine 06/05/23 documented as of this encounter
--- OUTSIDE RECORDS SUMMARY | 2023-08-24 04:10 | External Medical Summary | Summary of Care ---
Author Name Unknown Organization [facility] Address [address] [facility] [address] Phone [phone] Care Team Providers Care Reinforcing Steel Worker Wire Mesh Name Role Phone Charlotte Cornejo DO Primary Care Provider [phone] Reason for Visit * Reason Onset Date Comments Scheduling 05/08/2023 Encounter Details Date Type Department Care Team (Late st Contact Info) Description 05/08/2023 Telephone Family Practice [facility] [address] [place] [address] Loyda Cuellar CRNP [address] [place] [address] Scheduling Allergies No known active allergiesdocumented as of this encounter (statuses as of 05/22/2023) Medications Medication Sig Dispensed Refills Start Date [...] Tablet on tongue at bedtime. 0 Active Clotrimazole 1 % External Cream (Lotrimin) Apply topically to affected area 2 times a day for 14 days. 60 g 1 05/08/2023 05/22/2023 Active documented as of this encounter (statuses as of 05/22/2023) Active Problems Problem Noted Date Diagnosed Date [...] as of this encounter (statuses as of 05/22/2023) Resolved Problems Problem Noted Date Diagnosed Date [...] as of this encounter (statuses as of 05/22/2023) Immunizations Name Administration Dates Next Due Pneumococcal Conjugate Vacci ne, 20-valent ([id number]) 11/07/2021 Pneumococcal Polysaccharide PPV23 (Pneumovax) 02/10/2010 Seasonal [...] encounter Miscellaneous Notes * Telephone Encounter - Richy Leal OSA - 05/18/2023 3:40 PM EST Colon heavenly'd 09/27 w/ Иван * Telephone Encounter - Cas Arteaga OSA - 05/08/2023 12:25 PM EST Please call pt to schedule colonoscopy documented in this encounter Plan of Treatment Upcoming Encounters Date Type Department Care Team (Latest Contact Info) Description 08/13/2023 12:20 PM EDT Office Visit Family [facility] [address] [place] [address] Charlotte Cornejo DO [address] [place] [address] 09/28/2023 2:00 PM EDT Hospital Encounter ENDO [facility], Endoscopy Room [facility] [place] [place] [phone] Rosalba Oates MD [address] [place] [address] 09/28/2023 2:00 PM EDT - 09/28/2023 2:30 PM EDT Surgery ENDO [facility], Endoscopy Room [facility] [address] [place] [phone] Rosalba Oates MD [address] [place] [place] [address] COLONOSCOPY FLEXIBLE PROXIMAL DIAGNOSTIC 10/17/2023 1:30 PM EDT Laboratory Laboratory [address] [place] [phone] [place], Lab [address] [place] [address] 10/24/2023 2:00 PM EDT Office Visit Hematology/Oncolog y [facility] [place] [address] [place] [address] Amarilis Hernandez MD [address] [place] [address] Scheduled Procedures Name Priority Associated Diagnoses Date/Ti me COLONOSCOPY FLEXIBLE PROXIMAL DIAGNOSTIC Recall Special screening for malignant neoplasms, colon 09/28/2023 2:00 PM EDT Health Maintenance Due Date Last Done Comments DISCUSS TOBACCO CESSATION (REFER TO SMARTSET #1014) 1955 COVID-19 Vaccine (#1) 1955 Alpha-1 Antitrypsin 1972 Hepatitis C Screening 1972 Cologuard 1999 Fecal Occult Blood Test 1999 Sigmoidoscopy 1999 Hepatitis B (1 of 3 - Risk 3-dose series) 2014 DTaP,Tdap,and Td Vaccines (3 - Td or Tdap) 10/15/2020 10/15/2010, 02/10/2010 Zoster Vaccines (2 of 2) 01/02/2022 11/07/2021 Colonoscopy 03/19/2022 03/19/2012, 03/19/2012 Colorectal Cancer Screening 03/19/2022 Depression Screening 11/07/2022 11/07/2021 Influenza Vaccine (FLU shot) (#1) 2022 01/27/2022, 11/22/2017, 03/16/2015, Additional history exists Albumin/Creatinine Ratio 05/11/2023 05/11/2022 Diabetic Foot Exam 05/11/2023 05/11/2022 Diabetic Eye Exam 07/04/2023 07/03/2022, 04/04/2022 HbA1c 10/10/2023 04/11/2023, 04/0 06/2022, 02/15/2022, Additional history exists DXA Scan 01/04/2024 01/03/2022, 08/07, 08/20/2007, Additional history exists Mammogram 01/16/2024 01/15/2023, 12/09, 12/15/2021, Additional history exists GFR 04/11/2024 04/11/2023, 09/07, 07/10/2022, Additional history exists O2 ASSESSMENT COMPLETED IN PAST YEAR FOR COPD 04/18/2024 04/18/2023 Lipid Panel 11/07/2026 11/07/2021, 07/08, 05/21/2019, Additional history exists Pneumococcal Vaccine: 65+ Years Completed 11/07/2021, 02/10/2010 LUNG CANCER SCREENING - USE SMARTSET 48496 Completed 03/08/2023, 03/01/2022, 04/06/2014 GARDASIL-HPV IMMUNIZATION SERIES Aged Out No longer eligible based on patient's age to complete this topic MENINGOCOCCAL (MENACTRA/MENVEO) Aged Out No longer eligible based on patient's age to complete this topic documented as of this encounter Medical Devices Not on filedocumented as of this encounter Care Teams Reinforcing Steel Worker Wire Mesh Relationship Specialty Start Date End Date Charlotte Cornejo DO [address] [place] [address] PCP - General Family Medicine 05/15/23 documented as of this encounter
--- OUTSIDE RECORDS SUMMARY | 2023-08-24 04:10 | External Medical Summary | Summary of Care ---
Author Name Unknown Organization [facility] Address [address] [facility] [place] [address] Phone [phone] Care Team Providers Care Mink Slicer Name Role Phone Unavailable Primary Care Provider Unavailabl e Encounter Details Date Type Department Care Team (Late st Contact Info) Description 05/09/2023 Orders Only PATIENT PORTAL DO NOT DELETE THIS DEPT USED BY [place] [id number] Allergies No known active allergiesdocumented as of this encounter (statuses as of 05/09/2023) Medications Medication Sig Dispensed Refills Start Date [...] days. 60 g 1 05/08/2023 05/22/2023 Active Atorvastatin Calcium 20 MG Oral Tablet [...] as of this encounter (statuses as of 05/09/2023) Active Problems Problem Noted Date Diagnosed Date [...] as of this encounter (statuses as of 05/09/2023) Resolved Problems Problem Noted Date Diagnosed Date [...] as of this encounter (statuses as of 05/09/2023) Immunizations Name Administration Dates Next Due Pneumococcal Conjugate Vacci ne, 20-valent ([id number]) 11/07/2021 Pneumococcal Polysaccharide PPV23 (Pneumovax) 02/10/2010 Seasonal [...] Upcoming Encounters Date Type Department Care Team (Late st Contact Info) Description 08/13/2023 12:20 PM EDT Office Visit Family [facility] [address] [place] [address] Charlotte Cornejo DO [address] [place] [address] 10/17/2023 1:30 PM EDT Laboratory Laboratory [address] [place] [phone] [address] [place] [address] 10/24/2023 2:00 PM EDT Office Visit Hematology/Oncology [employer] [address] [facility] [place] [address] Amarilis Hernandez MD [address] [facility] [place] [address] Health Maintenance Due Date Last Done Comments DISCUSS TOBACCO CESSATION (REFER TO SMARTSET #6906) 1955 COVID-19 Vaccine (#1) 1955 Alpha-1 Antitrypsin [...] 02/10/2010 LUNG CANCER SCREENING - USE SMARTSET 02426 Completed 03/08/2023, 03/01/2022, 04/06/2014 GARDASIL-HPV IMMUNIZATION SERIES Aged Out No longer eligible based on patient's age to complete this topic MENINGOCOCCAL (MENACTRA/MENVEO) Aged Out No longer eligible based on patient's age to complete this topic documented as of this encounter Medical Devices Not on filedocumented as of this encounter
--- OUTSIDE RECORDS SUMMARY | 2023-08-24 04:10 | External Medical Summary | Summary of Care ---
Author Name Unknown Organization [facility] Address [address] [facility] [place] [address] Phone [phone] Care Team Providers Care Flatlock Sewing Machine Operator Name Role Phone Charlotte Cornejo DO Primary Care Provider [phone] Reason for Visit * Reason Onset Date Comments Advice 05/14/2023 Encounter Details Date Type Department Care Team (Late st Contact Info) Description 05/14/2023 Telephone Family Practice [facility] [address] [place] [address] Loyda Cuellar CRNP [address] [facility] [place] [address] Advice Allergies No known active allergiesdocumented as of this encounter (statuses as of 05/16/2023) Medications Medication Sig Dispensed Refills Start Date [...] as of this encounter (statuses as of 05/16/2023) Active Problems Problem Noted Date Diagnosed Date [...] as of this encounter (statuses as of 05/16/2023) Resolved Problems Problem Noted Date Diagnosed Date [...] as of this encounter (statuses as of 05/16/2023) Immunizations Name Administration Dates Next Due Pneumococcal Conjugate Vacci ne, 20-valent ([id number]) 11/07/2021 Pneumococcal Polysaccharide PPV23 (Pneumovax) 02/10/2010 Seasonal [...] encounter Miscellaneous Notes * Telephone Encounter - Brittni Morris DO - 05/16/2023 6:24 AM EST Myg to pt asking preference & how much she's currently smoking * Telephone Encounter - Jackie Antonio LPN - 05/15/2023 11:18 AM EST Previous PCP Velasquez. Pt seen for unrelated issue on 05/08 by Loyda. Please advise-will you send in a script for smoking cessation? documented in this encounter Plan of Treatment Upcoming Encounters Date Type Department Care Team (Latest Contact Info) Description 08/13/2023 12:20 PM EDT Office Visit [facility] [address] [facility] [place] [address] Charlotte Cornejo DO [address] [place] [address] 09/28/2023 2:00 PM EDT Hospital Encounter [facility], Endoscopy Room [facility] [address] [place] [phone] Rosalba Oates MD [address] [place] [id number] 09/28/2023 2:00 PM EDT - 09/28/2023 2:30 PM EDT Surgery ENDO [facility], Endoscopy Room [facility] [address] [place] [phone] Rosalba Oates MD [address] [place] [address] COLONOSCOPY FLEXIBLE PROXIMAL DIAGNOSTIC 10/17/2023 1:30 PM EDT Laboratory Laboratory [address] [place] [phone] [address] [place] [address] 10/24/2023 2:00 PM EDT Office Visit Hematology/Oncolog y [facility] [place] [address] [place] [address] Amarilis Hernandez MD [address] [place] [address] Scheduled Procedures Name Priority Associated Diagnoses Date/Ti me COLONOSCOPY FLEXIBLE PROXIMAL DIAGNOSTIC Recall Special screening for malignant neoplasms, colon 09/28/2023 2:00 PM EDT Health Maintenance Due Date Last Done Comments DISCUSS TOBACCO CESSATION (REFER TO SMARTSET #3548) 1955 COVID-19 Vaccine (#1) 1955 Alpha-1 Antitrypsin [...] 02/10/2010 LUNG CANCER SCREENING - USE SMARTSET [id number] Completed 03/08/2023, 03/01/2022, 04/06/2014 GARDASIL-HPV IMMUNIZATION SERIES Aged Out No longer eligible based on patient's age to complete this topic MENINGOCOCCAL (MENACTRA/MENVEO) Aged Out No longer eligible based on patient's age to complete this topic documented as of this encounter Medical Devices Not on filedocumented as of this encounter Care Teams Flatlock Sewing Machine Operator Relationship Specialty Start Date End Date Charlotte Cornejo DO [address] [place] [address] PCP - General Family Medicine 05/15/23 documented as of this encounter
--- OUTSIDE RECORDS SUMMARY | 2023-08-24 04:10 | External Medical Summary | Summary of Care ---
Author Name Unknown Organization [facility] Address [address] [place] [place] [address] Phone [phone] Care Team Providers Care Communication Instructor Name Role Phone Unavailable Primary Care Provider Unavailabl e Reason for Referral * Ancillary Services (Within 10 days (routine)) - Authorized Specialty Diagnoses / Procedures Referred By Sandra gil Referred To Contact Gastroenterology Diagnoses Encounter for screening colonoscopy Loyda Cuellar CRNP [address] [facility] [place] [address] Referral ID Status Reason Start Date Expiration Date Visits Requested Visits Authorized [id number] Authorized Ancillary Services Required 05/08/[phone] Question Answer Referral Priority Within 10 days (routine) Where should this appointment be scheduled? [facility] Comments ALERT: Do not order for pediatric patients (18 years or younger). Cancel off screen and order PEDS GASTROENTEROLOGY CONSULT (Type: 1 visit only-Evaluate and Treat) The following Pt. Instructions are available: - Gastro Colonoscopy Prep Instructions [[id number]] - Gastro Colonoscopy Prep Instructions (Sinhala Version) [[id number]] Go to the Pt. Instructions section within the Visit Navigator to access. Colonoscopy ASGE Guidelines: Last screening 10 years ago - routine Positive LGI flag ADDITIONAL INFORMATION 1. Is the patient on Coumadin? No 2. Is the patient on Pradaxa? No Reason for Visit * Reason Comments NEW PATIENT Test Results Encounter Details Date Type Department Care Team ([facility] Contact Info) Description 05/08/2023 11:20 AM EST Office Visit [facility] [address] [facility] [place] [address] Loyda Cuellar CRNP [address] [place] [address] Encounter for screening colonoscopy*; Dyslipidemia; Type 2 diabetes mellitus without complication, without long-term current use of insulin (HCC); HTN, goal below 140/90; Tobacco user; Iron deficiency anemia, unspecified iron deficiency anemia type Allergies No known active allergiesdocumented as of this encounter (statuses as of 05/08/2023) Medications Medication Sig Dispensed Refills Start Date End Date Status Zoster Vac Recomb Adjuvanted 50 MCG/0.5ML Intramuscular Suspension Reconstituted (Shingrix)Indicatio ns:Need for vaccination for zoster Inject 0.5 mL into a large muscle now and repeat dose in 60 to 180 days 1 Each 1 11/07/2021 Active Valsartan 80 MG Oral Tablet (Diovan)Indications :HTN, goal below 140/90 Take 1 Tablet by mouth in the morning. 90 Tablet 3 07/18/2022 Active amLODIPine Besylate 10 MG Oral Tablet (Norvasc)Indication s:HTN, goal below 130/80 Take 1 Tablet by mouth in the morning. 90 Tablet 3 09/07/2022 Active oxyCODONE-Acetamino phen 5-325 MG Oral Tablet [...] for 14 days. 60 g 1 05/08/2023 Active Atorvastatin Calcium 20 MG Oral Tablet (Lipitor)Indication s:Dyslipidemia Take 1 Tablet by mouth in the morning. 30 Tablet 5 05/08/2023 Active metFORMIN HCl ER 500 MG Oral Tablet Extended Release 24 Hour (Glucophage XR)Indications:Type 2 diabetes mellitus without complication, without long-term current use of insulin (HCC) Take 1 Tablet by mouth in the morning. 90 Tablet 3 05/08/2023 Active metFORMIN HCl ER 500 MG Oral Tablet Extended Release 24 Hour (Glucophage XR) Take 1 Tablet by mouth in the morning. 90 Tablet 3 05/08/2023 Discontinue d(Refill) documented as of this encounter (statuses as of 05/08/2023) Active Problems Problem Noted Date Diagnosed Date [...] as of this encounter (statuses as of 05/08/2023) Resolved Problems Problem Noted Date Diagnosed Date [...] as of this encounter (statuses as of 05/08/2023) Immunizations Name Administration Dates Next Due Pneumococcal Conjugate Vacci ne, 20-valent (Narnboo26) 11/07/2021 Pneumococcal Polysaccharide PPV23 (Pneumovax) 02/10/2010 Seasonal [...] Days Cigarettes 1 30 Smokeless Tobacco: Never Tobacco Cessation:Ready to Q uit: Yes; Counseling Given: Yes Comments:pt states that she has a few [...] on file documented as of this encounter Last Filed Vital Signs Vital Sign Reading Time Taken Comments Blood Pressure 140/60 05/08/2023 11:59 AM EST Pulse 88 05/08/2023 11:23 AM EST Temperature 36.8 C (98.2 F) 05/08/2023 11:[address] Respiratory Rate 16 05/08/2023 11:23 AM EST Oxygen Saturation - - Inhaled Oxygen Concentration - - Weight 48 kg (105 lb 12.8 oz) 05/08/2023 11:23 A M EST Height - - Body Mass Index 21.37 12/12/2022 4:21 PM EDT documented in this encounter Progress Notes * Loyda Cuellar CRNP - 05/08/2023 11:38 AM EST Images from the original note were not included. Follow up Family Medicine Visit History of Present Illness Nya Vazquez is a 68 year old female with PMH listed below presenting with elevated LGI marker. Her last colonoscopy was 10 years ago per chart. She denies any blood in stool, black tarry stool, or changes in stool. Brother had colon cancer. No fever, chills, chest pain, shortness of breath, headache, nausea, vomit, diarrhea, constipation or vision changes Was taking simvastain 40mg but stopped for unknown reason. Doesn't think she had side effects like leg pain. Initial blood pressure was elevated, repeat BP was down to 140/60 Taking valsartan 80mg and amlodopine 10 mg Diabetes -- denies polyuria, polyphagia, polydipsia. Agreeable to start on metformin Social History Socioeconomic History Marital status: Spouse name: Bill Number of children: 6 Years of education: Not on file Highest education level: Not on file Occupational History Not on file Tobacco Use Smoking status: Some Days Packs/day: 1.00 Years: 30.00 Additional pack years: 0.00 Total pack years: 30.00 Types: Cigarettes Smokeless tobacco: Never Tobacco comments: pt states that she has a few left in her pack and is not getting anymore Vaping Use Vaping Use: Never used Substance and Sexual Activity Alcohol use: Yes Comment: rare social Drug use: No Sexual activity: Yes Partners: Male control/protection: Surgical Other Topics Concern Not on file Social History Narrative Not on file Social Determinants of Health Financial Resource Strain: Not on file Food Insecurity: No Food Insecurity (02/14/2022) Hunger Vital Sign Worried About Running Out of Food in the Last Year: Never true Ran Out of Food in the Last Year: Never true Transportation Needs: Not on file Physical Activity: Not on file Stress: Not on file Social Connections: Not on file Intimate Partner Violence: Not on file Housing Stability: Not on file PMH: Past Medical History: Diagnosis Date Chronic pain R upper back and arthritic COVID-19 2019 Dyslipidemia, goal LDL below 100 Emphysema H. pylori infection 05/11/2008 Treatment ordered Hearing impairment Intellectual disability Lipoma of colon 03/19/2012 COLONOSCOPY FLEXIBLE PROXIMAL DIAGNOSTIC performed by Yenni Sandoval DO at [facility],normal tissue colon lipoma Major depressive disorder, single episode, severe (HCC) Other anxiety states Other persistent mental disorders due to conditions classified elsewhere Other specified menopausal and postmenopausal disorder Past Surgical History: Procedure Laterality Date BACK/FLANK SUBQ TUMOR REMOVAL, 3 CM OR MORE N/A 11/17/2022 EXCISION BACK/FLANK SUBQ TUMOR, 3 CM OR MORE performed by Stefany Wilson MD at OR [facility] Delivery Only COLONOSCOPY, DIAGNOSTIC (RECTUM) 03/19/2012 COLONOSCOPY FLEXIBLE PROXIMAL DIAGNOSTIC performed by Yenni Sandoval DO at [facility],normal tissue colon lipoma EGD, FLEXIBLE, W/BIOPSY 05/11/2008 + h pylori-treatment ordered LAPAROSCOPY; CHOLECYSTECTOMY 06/02/2008 Laparoscopic cholecystectomy with Cholangiogram 06/02/08 LIGATE/CUT OVIDUCT(S) Tubal Ligation PROCEDURE - GENERAL 11/17/2022 excision of back/flank by Dr Stefany Wilson Outpatient Medications Marked as Taking for the 05/08/23 encounter (Office Visit) with Loyda Cuellar CRNP Medication Sig Mirtazapine 15 MG Oral Tablet Disintegrating (Remeron Soltab) Place 1 Tablet on tongue at bedtime. Ventolin HFA 108 (90 Base) MCG/ACT Inhalation Aerosol Solution INHALE BY MOUTH 2 PUFFS IN THE MORNING AND 2 PUFFS AT NOON AND 2 PUFFS IN THE EVENING AND 2 PUFFS BEFORE BEDTIME. amLODIPine Besylate 10 MG Oral Tablet (Norvasc) Take 1 Tablet by mouth in the morning. Valsartan 80 MG Oral Tablet (Diovan) Take 1 Tablet by mouth in the morning. Review of patient's allergies indicates: No Known Allergies Most Recent Immunizations Administered Date(s) Administered Pneumococcal Conjugate Vaccine, 20-valent ([id number]) 11/07/2021 Pneumococcal Polysaccharide PPV23 (Pneumovax) 02/10/2010 Seasonal Influenza, Quadrivalent Hd (Fluzone Hd) 01/27/2022 Seasonal Influenza, Quadrivalent, No Preserve, IM 11/22/2017 Seasonal Influenza, Split, IIV3, With Preserve, Inj 03/30/2014 TDAP (age 11 and older)(Adacel) 10/15/2010 Zoster Vaccine Recombinant (Shingrix) 11/07/2021 Review of Systems: Physical Exam BP 166/72 (BP Site: Left Arm, BP Position: Sitting, BP Cuff Size: Regular) | Pulse 88 | Temp 36.8 C (98.2 F) (Tympanic) | Resp 16 | Wt 48 kg (105 lb 12.8 oz) | BMI 21.37 kg/m | BSA 1.41 m Physical Exam Constitutional: Appearance: Normal appearance. HENT: Head: Normocephalic. Cardiovascular: Rate and Rhythm: Normal rate and regular rhythm. Pulmonary: Effort: Pulmonary effort is normal. Breath sounds: Normal breath sounds. Musculoskeletal: Cervical back: Neck supple. Skin: General: Skin is warm. Neurological: Mental Status: She is alert and oriented to person, place, and time. Psychiatric: Mood and Affect: Mood normal. Assessment and Plan 1. Encounter for screening colonoscopy LGI marker positive - COLONOSCOPY, GI REFERRAL OP 2. Dyslipidemia Will restart atorvastatin, and recheck lipid F/u with her new pcp - LIPID PANEL WITH DIRECT LDL IF TG IS HIGH; Future - Atorvastatin Calcium 20 MG Oral Tablet (Lipitor); Take 1 Tablet by mouth in the morning. Dispense: 30 Tablet; Refill: 5 3. Type 2 diabetes mellitus without complication, without long-term current use of insulin (HCC) Will start metformin Reviewed risk, benefits, alternatives Recheck A1C, f/u with pcp - metFORMIN HCl ER 500 MG Oral Tablet Extended Release 24 Hour (Glucophage XR); Take 1 Tablet by mouth in the morning. Dispense: 90 Tablet; Refill: 3 4. HTN, goal below 140/90 Cont current meds 5. Tobacco user Recommend cessation Lung ca screening utd 6. Iron deficiency anemia, unspecified iron deficiency anemia type F/u with heme Colonoscopy Wrap-Up I have advised the patient to call our office with any worsening or new symptoms. I spent a total of Greater than 55 mins (exact time 55 mins) on the date of service in preparation,delivery, and documentation of the care provided to Nya Vazquez excluding any time spent in the performance of separately billed services. Loyda Cuellar, MAGALIE, KEVIN [facility] [place] documented in this encounter Nursing Notes * Jose Luis Davidson RN - 05/08/2023 11:22 AM EST Chief Complaint Patient presents with NEW PATIENT Test Results documented in this encounter Miscellaneous Notes * Pt Handout (on AVS) - ANASTACIA PATIENT HANDOUT - 05/08/2023 11:26 AM EST Images from the original note were not included. [id number] Planning to Quit Smoking Your healthcare provider may have told you that you need to give up tobacco. Only you can decide ifand when you're ready to quit. Quitting is hard to do. But the benefits will be worth it. When you decide to quit, come up with a plan that?s right for you. Discuss your plan with your provider. And talk with them about medicines to help you quit. Line up support To quit smoking, you?ll need a plan and some help. Pick a date in the next 2 to 4 weeks to quit. Use the time between now and that date to arrange for support. Classes and counselors. Quit-smoking classes assistant track coach people like you through the process. Get to know others in a class. And support each other beyond the class. Phone counseling also helps you keepon track. Ask your healthcare provider, local hospital, or public health department to put you in touch with a class and a phone counselor. Family and friends. Tell your family and friends about your quit date. Ask them to support your change. If they smoke, only see them in smoke-free places. Don't allow smoking in your home and car. Be careful with these products Finding something to replace cigarettes may be hard to do. Some things may be as harmful as cigarettes. These include: Smokeless (chewing) tobacco. This is just as harmful as regular tobacco. Don't use tobacco as a substitute for cigarettes. Herbal medicines or teas. These may affect how your body handles nicotine. Talk with your healthcare provider before using these products. E-cigarettes. E-cigarettes aren't approved by the FDA as a quit-smoking aid. So far, the research shows limited evidence that e-cigarettes are effective at helping smokers quit. They may also havesubstances that can cause cancer or life-threatening lung conditions. Experts advise not to use these products. Quit-smoking products Many products can help you quit smoking. Some are prescription medicines that help curb your cravings and withdrawal symptoms. Other products slowly lessen the level of nicotine your body absorbs. Nicotine is the highly addictive substance found in cigarettes, cigars, and chewing tobacco. Nicotine replacement products can help get your body used to slowly decreasing amounts of nicotine after you quit smoking. These products include a nicotine patch, gum, lozenge, nasal spray, and inhaler. Always follow the directions for your medicine or product carefully. Your healthcare provider may tell you to start taking the prescription medicine 1 week before you plan to quit. Don't smoke while you use nicotine products. Doing so can harm your health. To learn more For more helpful tips and resources, visit: National Cancer [place]'s smoke-free programs at www.smokefree.gov 022-29K-TKQD (899-008-0708) CDC at www.cdc.gov/tobacco/quit_smoking/ BeTobaccoFree.gov 062-FXDN-RQY (685-324-1789) [place] [employer] at www.lung.org/stop-smoking/ 800-LUNGUSA (714-533-5007, press 2) Last Reviewed Date: 04/09/202119998808-8478 [employer]. All rights reserved. This information is not intended as a substitute for professional medical care. Always follow your healthcare professional's instructions. * Pt Handout (on AVS) - ANASTACIA PATIENT HANDOUT - 05/08/2023 11:26 AM EST Images from the original note were not included. [id number] How to Quit Smoking Smoking is a hard habit to break. About half of all people who've ever smoked have been able to quit. Most people who still smoke want to quit. Here are some of the best ways to stop smoking. Keep in mind how quitting can help your health The health benefits of quitting start right away. They keep improving the longer you go without smoking. Knowing this can help inspire you to stay on track. These benefits occur at any age. Quitting is a good choice whether you are 17 or 70. Some of the health benefits after your last cigarette include: After 20 minutes: Your blood pressure and pulse return to normal. After 8 hours: Your oxygen levels return to normal. After 2 days: Your ability to smell and taste start to get better as damaged nerves regrow. After 2 to 3 weeks: Your circulation and lung function get better. After 1 to 9 months: You have less coughing, congestion, and shortness of breath. You feel less tired. After 1 year: Your risk of heart attack goes down by 50%. After 5 years: Your risk of lung cancer goes down by 50%. Your risk of stroke becomes the same as a nonsmoker?s. What about going cold turkey? You may have heard about quitting "cold turkey." This means stopping all at once. Going cold turkeyis an option. But it's not the most successful way to quit smoking. Trying to cut back slowly oftendoesn't work as well either. This may be because it continues the habit of smoking. You may also inhale more smoke while smoking fewer cigarettes. This leads to the same amount of nicotine in your body. But quitting cold turkey or cutting back slowly aren't your only choices. Using tobacco cessation medicines with behavioral counseling may be a better choice to help you succeed. Talk with your provider about your choices for support while you quit smoking. Get support Support programs can be a big help, especially for heavy smokers. These groups offer information, ways to change behavior, and peer support. Ask your provider for some resources. Here are some other ways to find support: Smokefree.gov at www.smokefree.gov or 897-QBMN-GMQ (977-189-4666) [place] [employer] at www.lung.org/quit-smoking or 736-984-5632 [place] [employer] at www.cancer.org/quitsmoking or 550-681-2053 Support at home is important too. Family and friends can offer praise and reassurance. Ask your friends who smoke to support your decision. Try to stay away from situations that trigger the desire tosmoke. This may include smoking with your morning coffee. Or smoking after a meal. Create new routines to help decrease your cravings. If the smoker in your life finds it hard to quit, encourage them to keep trying. Remind them of allof the benefits to themselves and people they love. Try mzzm-vdo-hjgdlmr nicotine replacements Nicotine replacement therapy may make it easier to quit. You can buy some aids without a prescription. These include a nicotine patch, gum, and lozenges. But it's best to use these under the care of your healthcare provider. The skin patch gives a steady supply of nicotine. Nicotine gum and lozenges give short- time doses of low levels of nicotine. Both methods reduce the craving for cigarettes. If you have upset stomach (nausea), vomiting, dizziness, weakness, or a fast heartbeat, stop using these products and see your provider. Ask about prescription medicine After reviewing your smoking patterns and past attempts to quit, your provider may offer a prescription medicine. These include bupropion, varenicline, a nicotine inhaler, or nasal spray. Each has advantages and side effects. Your provider can go over these with you. Keep trying Most smokers try to quit many times before they succeed. It?s important not to give up. Last Reviewed Date: 03/09/202219991951-1590 K[employer]. All rights reserved. This information is not intended as a substitute for professional medical care. Always follow your healthcare professional's instructions. documented in this encounter Plan of Treatment Upcoming Encounters Date Type Department Care Team (Late st Contact Info) Description 08/13/2023 12:20 PM EDT Office Visit Family Practice [facility] [address] [place] [address] Charlotte Cornejo DO [address] [place] [address] 10/17/2023 1:30 PM EDT Laboratory Laboratory [address] [place] [id number] [address] [place] [address] 10/24/2023 2:00 PM EDT Office Visit Hematology/Oncology [facility] [address] [facility] [place] [address] Amarilis Hernandez MD [address] [facility] [place] [address] Scheduled Orders Name Type Priority Associated Diagnoses Orde r Schedule LIPID PANEL WITH DIRECT LDL IF TG IS HIGH Lab Routine Dyslipidemia Expected: 05/08/2023, Expires: 05/08/2024 Scheduled Referrals Name Type Priority Associated Diagnoses Orde r Schedule COLONOSCOPY, GI REFERRAL OP Referral Within 10 days (routine) Encounter for screening colonoscopy Ordered: 05/08/2023 Health Maintenance Due Date Last Done Comments DISCUSS TOBACCO CESSATION (REFER TO SMARTSET #[id number]) 1955 COVID-19 Vaccine (#1) 1955 Alpha-1 Antitrypsin [...] 02/10/2010 LUNG CANCER SCREENING - USE SMARTSET [id number] Completed 03/08/2023, 03/01/2022, 04/06/2014 GARDASIL-HPV IMMUNIZATION SERIES Aged Out No longer eligible based on patient's age to complete this topic MENINGOCOCCAL (MENACTRA/MENVEO) Aged Out No longer eligible based on patient's age to complete this topic documented as of this encounter Medical Devices Not on filedocumented as of this encounter Visit Diagnoses Diagnosis Encounter for screening colonoscopy- Primary Special screening for malignant neoplasms, colon Dyslipidemia Other and unspecified hyperlipidemia Type 2 diabetes mellitus without complication, without long-term current use of insulin (HCC) HTN, goal below 140/90 Unspecified essential hypertension Tobacco user Tobacco use disorder Iron deficiency anemia, unspecified iron deficiency anemia type documented in this encounter
--- OUTSIDE RECORDS SUMMARY | 2023-08-24 04:10 | External Medical Summary | Summary of Care ---
Author Name Unknown Organization [facility] Address [address] [facility] [place] [address] Phone [phone] Care Team Providers Care Dragline Engineer Name Role Phone Unavailable Primary Care Provider Unavailabl e Reason for Visit * Reason Comments eRx-Medication Refill Encounter Details Date Type Department Care Team (Late st Contact Info) Description 05/10/2023 Refill Family Practice [facility] [address] [facility] [place] [address] Fred Eng, DO [address] [place] [address] HTN, goal below 140/90 Allergies No known active allergiesdocumented as of this encounter (statuses as of 05/11/2023) Medications Medication Sig Dispensed Refills Start Date [...] BEFORE BEDTIME. 18 g 5 3 Active Mirtazapine 15 MG Oral Tablet Disintegrating (Remeron Soltab) Place 1 Tablet on tongue at bedtime. 0 Active Clotrimazole 1 % External Cream (Lotrimin) Apply topically to affected area 2 times a day for 14 days. 60 g 1 4 05/22/19 24 Active Atorvastatin Calcium 20 MG Oral Tablet (Lipitor)Indication s:Dyslipidemia Take 1 Tablet by mouth in the morning. 30 Tablet 5 4 Active metFORMIN HCl ER 500 MG Oral Tablet Extended Release 24 Hour (Glucophage XR)Indications:Type 2 diabetes mellitus without complication, without long-term current use of insulin (HCC) Take 1 Tablet by mouth in the morning. 90 Tablet 3 4 Active Valsartan 40 MG Oral Tablet (Diovan)Indications :HTN, goal below 140/90 TAKE 1 TABLET BY MOUTH EVERY DAY 90 Tablet 3 4 05/11/19 24 Discontinued documented as of this encounter (statuses as of 05/11/2023) Active Problems Problem Noted Date Diagnosed Date [...] as of this encounter (statuses as of 05/11/2023) Resolved Problems Problem Noted Date Diagnosed Date [...] as of this encounter (statuses as of 05/11/2023) Immunizations Name Administration Dates Next Due Pneumococcal Conjugate Vacci ne, 20-valent ([id number]) 11/07/2021 Pneumococcal Polysaccharide PPV23 (Pneumovax) 02/10/2010 Seasonal [...] as of this encounter Miscellaneous Notes * Addendum Note - Loyda Peters CRNP - 05/11/2023 11:05 AM ESTAddended by: LOYDA PETERS on: 05/11/2023 11:05 AM Modules accepted: Orders * Telephone Encounter - Loyda Peters CRNP - 05/11/2023 11:05 AM EST She is taking 80mg valsartan? Why would she requesting 40mg? Please clarify * Telephone Encounter - Loyda Peters CRNP - 05/11/2023 11:04 AM ESTSigned Prescriptions: Disp Refills Valsartan 40 MG Oral Tablet (Diovan) 90 Tab*3 Sig: TAKE 1 TABLET BY MOUTH EVERY DAY Authorizing Provider: LOYDA PETERS * Telephone Encounter - Lynda Oconnell LPN - 05/11/2023 11:02 AM ESTPending Prescriptions: Disp Refills Valsartan 40 MG Oral Tablet [Pharmacy Med *90 Tab*3 Sig: TAKE 1 TABLET BY MOUTH EVERY DAY * Telephone Encounter - Jose Luis Bass [facility] - 05/11/2023 10:18 AM EST Pending Prescriptions: Disp Refills Valsartan 40 MG Oral Tablet [Pharmacy Med *90 Tab*3 Sig: TAKE 1 TABLET BY MOUTH EVERY DAY * Telephone Encounter - Jose Luis Bass RPh - 05/11/2023 10:17 AM EST Patient does not have active [facility] PCP under whom to authorize refills. Please review and refill as appropriate. Pending Prescriptions: Disp Refills Valsartan 40 MG Oral Tablet (Diovan) [Pha*90 Tab*3 Sig: TAKE 1 TABLET BY MOUTH EVERY DAY Last Visit: 05/08/2023 (in office), Visit date not found (telemedicine) Next Visit: 08/13/2023 If no future appointments scheduled, and last appointment is greater than a year ago, please schedule patient for a follow-up appointment Last date the medication was ordered: 07/18/22 Pharmacy: [id number] [id number] [facility] Is this request for a controlled substance? No Urine Drug Screen:No results found for this or any previous visit. Patient Phone Numbers Labs: Lab Results Component Value Date/Time CREAT 0.9 04/11/2023 11:10 AM CREAT 0.74 07/03/2022 12:00 AM CREAT 0.8 05/21/2019 01:25 PM POTASSIUM 4.4 04/11/2023 11:10 AM POTASSIUM 3.9 07/03/2022 12:00 AM POTASSIUM 5.2 (H) 05/21/2019 01:25 PM TSH 1.45 02/15/2022 09:06 AM TSH 1.23 03/16/2015 03:03 PM LDLCALC 73 11/07/2021 09:42 AM LDLCALC 106 08/09/2017 12:26 PM LDLDIRECT 87 07/22/2020 12:42 PM LDLDIRECT 98 05/21/2019 01:25 PM ALT 25 04/11/2023 11:10 AM ALT 15 05/21/2019 01:25 PM HGBA1C 6.7 (H) 04/11/2023 11:10 AM HGBA1C 6.6 (H) 05/21/2019 01:25 PM documented in this encounter Plan of Treatment Upcoming Encounters Date Type Department Care Team (Latest Contact Info) Description 08/13/2023 12:20 PM EDT Office Visit [facility] [address] [place] [address] Charlotte Cornejo DO [address] [place] [address] 09/28/2023 2:00 PM EDT Hospital Encounter ENDO [facility], Endoscopy Room [facility] [address] [place] [phone] Rosalba Oates MD [address] [place] [address] 09/28/2023 2:00 PM EDT - 09/28/2023 2:30 PM EDT Surgery ENDO [facility], Endoscopy Room [facility] [address] [place] [phone] Rosalba Oates MD [address] [place] [address] COLONOSCOPY FLEXIBLE PROXIMAL DIAGNOSTIC 10/17/2023 1:30 PM EDT Laboratory Laboratory [address] [place] [phone] [address] [place] [address] 10/24/2023 2:00 PM EDT Office Visit Hematology/Oncolog y [facility] [place] [address] [place] [address] Amarilis Hernandez MD [address] [place] [address] Scheduled Procedures Name Priority Associated Diagnoses Date/Ti me COLONOSCOPY FLEXIBLE PROXIMAL DIAGNOSTIC Recall Special screening for malignant neoplasms, colon 09/28/2023 2:00 PM EDT Health Maintenance Due Date Last Done Comments DISCUSS TOBACCO CESSATION (REFER TO SMARTSET #0089) 1955 COVID-19 Vaccine (#1) 1955 Alpha-1 Antitrypsin [...] 02/10/2010 LUNG CANCER SCREENING - USE SMARTSET 62974 Completed 03/08/2023, 03/01/2022, 04/06/2014 GARDASIL-HPV IMMUNIZATION SERIES [...]
--- OUTSIDE RECORDS SUMMARY | 2023-08-24 04:10 | External Medical Summary | Summary of Care ---
Author Name Unknown Organization [facility] Address [address] [facility] [place] [address] Phone [phone] Care Team Providers Care Housekeeper Nanny Name Role Phone Unavailable Primary Care Provider Unavailabl e Reason for Visit * Reason Comments eRx-Medication Refill Encounter Details Date Type Department Care Team (Late st Contact Info) Description 05/10/2023 Refill Family Practice [facility] [address] [facility] [place] [address] Fred Eng, DO [address] [place] [address] HTN, goal below 140/90 [...] Next Due Pneumococcal Conjugate Vacci ne, 20-valent ([id number]) 11/07/2021 Pneumococcal Polysaccharide PPV23 (Pneumovax) 02/10/2010 Seasonal [...] encounter Miscellaneous Notes * Telephone Encounter - Lynda Oconnell LPN - 05/11/2023 11:12 AM EST Called and spoke with pt. Pt states that she is on the 80mg and does not need the 40 mg. * Addendum Note - Loyda Peters CRNP [...] * Telephone Encounter - Jose Luis Bass [facility] - 05/11/2023 10:18 AM EST Pending Prescriptions: Disp Refills Valsartan 40 MG Oral Tablet [Pharmacy Med *90 Tab*3 Sig: TAKE 1 TABLET BY MOUTH EVERY DAY * Telephone Encounter - Jose Luis Bass [facility] - 05/11/2023 10:17 AM EST [facility] whom to authorize refills. Please [...] medication was ordered: 07/18/22 Pharmacy: [id number] Is this request for a controlled substance? [...] Description 08/13/2023 12:20 PM EDT Office Visit [facility] [address] [place] [address] Charlotte Cornejo DO [address] [place] [address] 09/28/2023 2:00 PM EDT Hospital Encounter ENDO [facility], Endoscopy Room [facility] [address] [place] [phone] Rosalba Oates MD [address] [place] [address] 09/28/2023 2:00 PM EDT - 09/28/2023 2:30 PM EDT Surgery ENDO [facility], Endoscopy Room [facility] [address] [place] [phone] Rosalba Oates MD [address] [place] [address] COLONOSCOPY FLEXIBLE PROXIMAL DIAGNOSTIC 10/17/2023 1:30 PM EDT Laboratory Laboratory [address] [place] [phone] [address] [place] [address] 10/24/2023 2:00 PM EDT Office Visit Hematology/Oncolog y [facility] [address] [place] [address] Amarilis Hernandez MD [address] [place] [address] Scheduled Procedures Name Priority Associated Diagnoses Date/Ti [...] 02/10/2010 LUNG CANCER SCREENING - USE SMARTSET [address] Completed 03/08/2023, 03/01/2022, 04/06/2014 GARDASIL-HPV IMMUNIZATION SERIES [...]
--- OUTSIDE RECORDS SUMMARY | 2023-08-24 04:10 | External Medical Summary | Summary of Care ---
Author Name Unknown Organization [facility] Address [address] [facility] [place] [address] Phone [phone] Care Team Providers Care Day Care Teacher Name Role Phone Unavailable Primary Care Provider Unavailabl e Reason for Visit * Reason Comments eRx-Medication Refill Encounter Details Date Type Department Care Team (Late st Contact Info) Description 05/10/2023 Refill Family Practice [facility] [address] [facility] [place] [address] Fred Eng, DO [address] [place] [address] HTN, goal below 140/90 [...] Next Due Pneumococcal Conjugate Vacci ne, 20-valent ([id number]) 11/07/2021 Pneumococcal Polysaccharide PPV23 (Pneumovax) 02/10/2010 Seasonal [...] * Telephone Encounter - Jose Luis Bass [facility] - 05/11/2023 10:18 AM EST Pending Prescriptions: Disp Refills Valsartan 40 MG Oral Tablet [Pharmacy Med *90 Tab*3 Sig: TAKE 1 TABLET BY MOUTH EVERY DAY * Telephone Encounter - Jose Luis Bass [facility] - 05/11/2023 10:17 AM EST [facility] under whom to authorize refills. Please [...] medication was ordered: 07/18/22 Pharmacy: [id number] Is this request for a controlled [...] 08/13/2023 12:20 PM EDT Office Visit [facility] [address] [place] [address] Charlotte Cornejo DO [address] [place] [address] 09/28/2023 2:00 PM EDT Hospital Encounter ENDO [facility], Endoscopy Room [facility] [address] [place] [phone] Rosalba Oates MD [address] [place] [address] 09/28/2023 2:00 PM EDT - 09/28/2023 2:30 PM EDT Surgery ENDO [facility], Endoscopy Room [facility] [address] [place] [phone] Rosalba Oates MD [address] [place] [address] COLONOSCOPY FLEXIBLE PROXIMAL DIAGNOSTIC 10/17/2023 1:30 PM EDT Laboratory Laboratory [address] [place] [phone] [address] [place] [address] 10/24/2023 2:00 PM EDT Office Visit Hematology/Oncolog y [facility] [address] [place] [address] Amarilis Hernandez MD [address] [place] [address] Scheduled Procedures Name Priority Associated Diagnoses Date/Ti [...] 02/10/2010 LUNG CANCER SCREENING - USE SMARTSET [id number] Completed 03/08/2023, 03/01/2022, 04/06/2014 GARDASIL-HPV IMMUNIZATION SERIES [...]
--- OUTSIDE RECORDS SUMMARY | 2023-08-24 04:11 | External Medical Summary | Summary of Care ---
Author Name Unknown Organization [facility] Address [address] [facility] [place] [address] Phone [phone] Care Team Providers Care Manager Purchasing Name Role Phone Unavailable Primary Care Provider Unavailabl e Reason for Visit * Reason Comments Follow Up 3m Encounter Details Date Type Department Care Team (Late st Contact Info) Description 04/18/2023 2:30 PM EST Office Visit Hematology/Oncology [facility] [place] [address] [facility] [place] [address] Amarilis Hernandez MD [address] [place] [address] Iron deficiency*; Bandemia; Thrombocytosis Allergies No known active allergiesdocumented as of this encounter (statuses as of 04/18/2023) Medications Medication Sig Dispensed Refills Start Date [...] Pain, Breakthrough. 14 Tablet 0 11/17/2022 Active Ventolin HFA 108 (90 Base) MCG/ACT Inhalation Aerosol SolutionIndications: Chronic nonspecific lung disease,Chronic rhinitis INHALE BY MOUTH 2 PUFFS IN THE MORNING AND 2 PUFFS AT NOON AND 2 PUFFS IN THE EVENING AND 2 PUFFS BEFORE BEDTIME. 18 g 5 02/13/2023 Active Mirtazapine 15 MG Oral Tablet Disintegrating (Remeron Soltab) Place 1 Tablet on tongue at bedtime. 0 Active Ferrous Sulfate 325 (65 Fe) MG Oral Tablet Take 1 Tablet by mouth daily with breakfast. 0 04/18/2023 Discontinue d(Medicatio n List Clean Up) Mirtazapine 15 MG Oral Tablet (Remeron)Indications :Moderate episode of recurrent major depressive disorder (HCC),Psychophysiolo gical insomnia Take 1 Tablet by mouth at bedtime. 30 Tablet 5 12/12/2022 04/18/2023 Discontinue d(Medicatio n List Clean Up) Iron-Vitamin C 100-250 MG Oral TabletIndications:Ir on deficiency TAKE 1 TABLET BY MOUTH EVERY DAY IN THE MORNING 90 Tablet 1 01/01/2023 04/18/2023 Discontinue d(Medicatio n List Clean Up) documented as of this encounter (statuses as of 04/18/2023) Active Problems Problem Noted Date Diagnosed Date [...] as of this encounter (statuses as of 04/18/2023) Resolved Problems Problem Noted Date Diagnosed Date [...] as of this encounter (statuses as of 04/18/2023) Immunizations Name Administration Dates Next Due Pneumococcal Conjugate Vacci ne, 20-valent ([id number]) 11/07/2021 Pneumococcal Polysaccharide PPV23 (Pneumovax) 02/10/2010 Seasonal [...] Tobacco: Never Tobacco Cessation:Ready to Q uit: Not Asked; Counseling Given: Not Answered Comments:pt states that she has a few [...] Sign Reading Time Taken Comments Blood Pressure 160/70 04/18/2023 2:16 PM EST Pulse 89 04/18/2023 2:16 PM EST Temperature 36.8 C (98.3 F) 04/18/2023 2:16 PM ES T Respiratory Rate 16 04/18/2023 2:16 PM EST Oxygen Saturation 95% 04/18/2023 2:16 PM EST Inhaled Oxygen Concentration - - Weight 47 kg (103 lb 11.2 oz) 04/18/2023 2:16 PM EST Height - - Body Mass Index 20.94 12/12/2022 4:21 PM EDT documented in this encounter Progress Notes * Amarilis Hernandez MD - 04/18/2023 2:49 PM EST Outpatient Consult Note Data Source: Patient, Epic record. Data Source: Patient, Epic record. 04/18/2023 2:49 PM Nya Vazquez [id number] 68 year old Patient Encounter: HEMATOLOGY/ONCOLOGY [facility] Diagnosis: Patient of Mariel Leukocytosis and thrombocytosis. Iron deficiency anemia Current Treatment: Iron tablets Previous Treatment: None History : 67-year-old female with history of hypertension, dyslipidemia, and COPD. Patient is a poor historian. Chart review reveals CBC changes have been present since 2002; platelet count in 400K range; WBC count 12-15K. Most recently with normal differential. No abnormal or immature cells on differential.Reports she feels generally well. Has a small lump at the base of her neck on the left side. Patient states it has been there for many months. Is tender at times. Has been told it is a lipoma. Patient denies night sweats. Patient lost weight since she had COVID in April but has remained stable since that time. She was severly ill at that time and was hospitalized. Has never eaten much her entire life. Patient is a 1/2-1 PPD smoker since she was 12 years old. Patient has tried to quit a few times. Patient denies erythromelalgia, facial flushing, or pruritus. Has never had a blood clot. Pathologist Smear Interpretation [facility] Peripheral Blood Smear: - Leukocytosis with absolute neutrophilia. COMMENT: Neutrophilia may be associated with acute infectious process or acute inflammatory disorders. Clinical correlation is recommended. WBC: Leukocytosis with absolute neutrophilia and toxic changes. No increase in blasts or dysplasticcells seen. RBC: Normocytic normochromic with mild anisopoikilocytosis. No increase in schistocytes seen. PLT: The platelet morphology and distribution are unremarkable. Interval History: Clinically she is doing well without new symptoms complain. Denies any headache, dizziness, blurredvision, chest pain, shortness breath palpitation abdominal pain or distention, nausea, vomiting, fever, night sweats, weight loss, bleeding, bruising. LABS/IMAGING: Results for orders placed or performed in visit on 04/11/23 COMPREHENSIVE METABOLIC PANEL Result Value Ref Range BUN 11 6 - 20 mg/dL Creatinine 0.9 0.5 - 1.0 mg/dL Estimated Glomerular Filtration Rate 67 >=60 mL/min Sodium 139 135 - 146 mmol/L Potassium 4.4 3.5 - 5.1 mmol/L Chloride 102 98 - 107 mmol/L CO2 24 22 - 32 mmol/L Anion Gap 13 7 - 15 mmol/L Glucose 129 (H) 70 - 120 mg/dL Albumin 4.6 3.8 - 5.0 g/dL AST 30 10 - 35 U/L Alkaline Phosphatase 97 35 - 130 U/L Bilirubin, Total 0.3 <=1.2 mg/dL Calcium 10.0 8.4 - 10.2 mg/dL Protein 7.1 6.0 - 8.3 g/dL ALT 25 10 - 35 U/L FERRITIN Result Value Ref Range Ferritin 59 13 - 150 ng/mL IRON SCREEN, INCLUDING TIBC Result Value Ref Range Iron 33 33 - 151 ug/dL Iron Binding Capacity 355 250 - 425 ug/dL Transferrin Saturation Percent 9 (L) 15 - 55 % HEMOGLOBIN A1C Result Value Ref Range Hemoglobin A1C 6.7 (H) 4.0 - 5.6 % Estimated Average Glucose 146 (H) <126 mg/dL CBC Result Value Ref Range WBC 15.26 (H) 4.00 - 10.80 K/uL RBC 4.80 3.85 - 5.15 M/uL HGB 13.5 12.0 - 15.3 g/dL HCT 41.4 36.0 - 45.2 % MCV 86.3 81.5 - 97.5 fL MCH 28.1 27.0 - 34.0 pg MCHC 32.6 32.0 - 36.0 g/dL RDW 13.5 11.5 - 15.5 % PLT 485 (H) 140 - 400 K/uL MPV 8.9 6.6 - 11.1 fL DIFFERENTIAL, AUTOMATED Result Value Ref Range WBC 15.26 (H) 4.00 - 10.80 K/uL Neutrophils % 68.7 40.0 - 75.0 % Lymphocytes % 24.0 18.0 - 42.0 % Monocytes % 6.7 1.0 - 11.0 % Eosinophils % 0.3 0.0 - 6.0 % Basophils % 0.3 0.0 - 2.0 % Absolute Neutrophils 10.48 (H) 1.80 - 7.70 K/uL Absolute Lymphocytes 3.67 1.00 - 4.80 K/ul Absolute Monocytes 1.02 0.00 - 1.10 K/uL Absolute Eosinophils 0.05 0.00 - 0.70 K/uL Absolute Basophils 0.04 0.00 - 0.20 K/uL All her blood counts are stable including WBC count and platelet counts with normal hemoglobin level. Electrolytes and LFTs all are within acceptable range. REVIEW OF SYSTEMS: General: No Fever, chills, night sweats, or weight loss. HEENT: No change in visual acuity, blurred or double vision. No epistaxis, facial pain, nasal discharge or change in hearing. Denies dysphagia, no muscosal ulceration, or sores noted. Cardiovascular: No chest pain, FLEMING, or palpitations Respiratory: No shortness of breath, cough, hemoptysis, or pleuritic chest pain Gastrointestinal: No abdominal pain, nausea, vomiting, diarrhea, rectal pain or bleeding Genitourinary: Denies Hematuria or dysuria Musculoskeletal: No bone pain Psychiatric: No vegetative signs of depression Endocrine: No symptoms of hypothyroidism or hyperglycemia Hematologic: No bleeding or lymph nodes noted As mentioned above, all of the systems were reviewed in full and are unremarkable. Past Medical History: Diagnosis Date Chronic pain R upper back and arthritic COVID-19 2020 Dyslipidemia, goal LDL below 100 Emphysema H. pylori infection 05/11/2008 Treatment ordered Hearing impairment Intellectual disability Lipoma of colon 03/19/2012 COLONOSCOPY FLEXIBLE PROXIMAL DIAGNOSTIC performed by Yenni Sandoval DO at [facility],normal tissue colon lipoma Major depressive disorder, single episode, severe (HCC) Other anxiety states Other persistent mental disorders due to conditions classified elsewhere Other specified menopausal and postmenopausal disorder Current Outpatient Medications Medication Sig Dispense Refill Mirtazapine 15 MG Oral Tablet Disintegrating (Remeron Soltab) Place 1 Tablet on tongue at bedtime. Zoster Vac Recomb Adjuvanted 50 MCG/0.5ML Intramuscular Suspension Reconstituted (Shingrix) Inject 0.5 mL into a large muscle now and repeat dose in 60 to 180 days 1 Each 1 Valsartan 80 MG Oral Tablet (Diovan) Take 1 Tablet by mouth in the morning. 90 Tablet 3 amLODIPine Besylate 10 MG Oral Tablet (Norvasc) Take 1 Tablet by mouth in the morning. 90 Tablet 3 oxyCODONE-Acetaminophen 5-325 MG Oral Tablet (Percocet) Take 1 Tablet by mouth every 6 hours as needed for Pain, Breakthrough. 14 Tablet 0 Ventolin HFA 108 (90 Base) MCG/ACT Inhalation Aerosol Solution INHALE BY MOUTH 2 PUFFS IN THE MORNING AND 2 PUFFS AT NOON AND 2 PUFFS IN THE EVENING AND 2 PUFFS BEFORE BEDTIME. 18 g 5 No current facility-administered medications for this visit. Social History Tobacco Use Smoking status: Some Days Packs/day: 1.00 Years: 30.00 Additional pack years: 0.00 Total pack years: 30.00 Types: Cigarettes Smokeless tobacco: Never Tobacco comments: pt states that she has a few left in her pack and is not getting anymore Vaping Use Vaping Use: Never used Substance Use Topics Alcohol use: Yes Comment: rare social Drug use: No Review of patient's allergies indicates: No Known Allergies PHYSICAL EXAMINATION: General Appearance: Healthy appearing patient in no acute distress BP 160/70 (BP Site: Right Arm, BP Position: Sitting, BP Cuff Size: Regular) | Pulse 89 | Temp 36.8 C (98.3 F) (Tympanic) | Resp 16 | Wt 47 kg (103 lb 11.2 oz) | SpO2 95% | BMI 20.94 kg/m | BSA 1.4 m Vitals reviewed. HEENT: No oral or pharyngeal masses, ulceration or thrush noted, no sinus tenderness. Neck is supple with no thyromegaly or JVD noted. Lymph Nodes: No lymphadenopathy noted in the occipital, pre and post auricular, cervical, supra andinfraclavicular, axillary, epitrochlear, inguinal, and popliteal region. Lungs/Thorax: Clear to auscultation, no accessory muscles of respiration being used. Heart: Regular rate and rhythm, normal S1, S2 Abdomen: Soft, nontender, bowel sounds present, no appreciable hepatosplenomegaly, no palpable masses Extremeties: Good pulses bilaterally, no peripheral edema. ASSESSMENT: 67-year-old female with history significant for hyperlipidemia was seen by Mariel for leukocytosisand thrombocytosis. Her iron level was low with low transferrin saturation but normal iron binding capacity. Ferritin level was also low. She was scheduled to receive Venofer but because of the elevated blood pressure it was discontinuedand currently she is taking iron tablets with overall feeling well with improvement in the energy level. She also has a history of leukocytosis and leukocytosis with stable count. Review of peripheral blood smear was unremarkable. Her hemoglobin is normal. Discussed with the patient about diagnosis reviewed all the available blood test result with her PLAN: Return to clinic in 6 months with CBC and CMP The patient voiced understanding of all of the above. All questions and concerns were addressed in an apparently satisfactory manner. Amarilis Hernandez MD (This note was completed using the dictation program Fluency Direct. As such, there may be misspellings, word substitutions, or other variations that should not change the essence of the clinical content of this encounter note. If there is need for further clarification, please direct questions to me.) documented in this encounter Nursing Notes * Randi Weinstein CMA - 04/18/2023 2:16 PM EST Patient identifed by name and birthdate Do you have any concerns about pain management for today's visit? No Living Will or Advance Directive for Health Care as noted on the problem list. [facility] is a way you can talk to your provider on line through e-mail. Would you like to sign up? I can activate it for you? NO Filed Vitals: 04/18/23 1416 BP: 160/70 Pulse: 89 Resp: 16 Temp: 36.8 C (98.3 F) TempSrc: Tympanic SpO2: 95% Weight: 47 kg (103 lb 11.2 oz) Patient was instructed to not get up on the exam table/exam chair until directed and assisted by their provider; patient is to remain seated in the chair/ wheelchair/ exam table/ exam chair for fall prevention and safety reasons. Patient is aware to have assistance to step down off exam table/exam chair with personnel. Patient voiced full comprehension of instructions. documented in this encounter Plan of Treatment Upcoming Encounters Date Type Department Care Team (Late st Contact Info) Description 10/17/2023 1:30 PM EDT Laboratory Laboratory [address] [place] [phone] [place] [address] 10/24/2023 2:00 PM EDT Office Visit Hematology/Oncology [facility] [address] [facility] [place] [address] Amarilis Hernandez MD [address] [place] [address] Scheduled Orders Name Type Priority Associated Diagnoses Orde r Schedule CBC WITH WBC DIFFERENTIAL Lab Routine Iron deficiency Bandemia Thrombocytosis Expected: 10/22/2023, Expires: 02/18/2024 COMPREHENSIVE METABOLIC PANEL Lab Routine Iron deficiency Bandemia Thrombocytosis Expected: 10/22/2023, Expires: 02/18/2024 Health Maintenance Due Date Last Done Comments [...] 04/11/2023, 04/0 06/2022, 02/15/2022, Additional history exists O2 ASSESSMENT COMPLETED IN PAST YEAR FOR COPD 12/13/2023 04/18/2023 DXA Scan 01/04/2024 01/03/2022, 08/07, 08/20/2007, Additional history exists Mammogram 01/16/2024 01/15/2023, 12/09, 12/15/2021, Additional history exists GFR 04/11/2024 04/11/2023, 09/07, 07/10/2022, Additional history exists Lipid Panel 11/07/2026 11/07/2021, 07/08, 05/21/2019, Additional history exists Pneumococcal Vaccine: 65+ Years Completed 11/07/2021, 02/10/2010 LUNG CANCER SCREENING - USE SMARTSET 63060 Completed 03/08/2023, 03/01/2022, 04/06/2014 GARDASIL-HPV IMMUNIZATION SERIES Aged Out No longer eligible based on patient's age to complete this topic MENINGOCOCCAL (MENACTRA/MENVEO) Aged Out No longer eligible based on patient's age to complete this topic documented as of this encounter Medical Devices Not on filedocumented as of this encounter Visit Diagnoses Diagnosis Iron deficiency- Primary Iron deficiency anemia, unspecified Bandemia Thrombocytosis Essential thrombocythemia documented in this encounter"
--- OUTSIDE RECORDS SUMMARY | 2023-08-24 04:11 | External Medical Summary ---
Author Name Unknown Address Unknown Organization K09:[facility] [address] [place] [address] Laboratory Report Ordering Provider Test Date Status ESTEPHANIA GRANDA 04/11/2023 11:10:20 Final Observation Date Value Abnormality Reference (Units ) Status BUN 04/11/2023 11:10:20 11 6-20 (mg/dL) Final Creatinine 04/11/2023 11:10:20 0.9 0.5-1.0 (mg/dL) Final Glomerular filtration rate/1.73 sq M.predicted [Volume Rate/Area] in Serum, Plasma or Blood by Creatinine-based formula (CKD-EPI) 04/11/2023 11:10:20 67 >=60 (mL/min) Final eGFR is calculated based on the CKD-EPI 2020 equation SODIUM 04/11/2023 11:10:20 139 135-146 (m mol/L) Final Potassium 04/11/2023 11:10:20 4.4 3.5-5.1 (m mol/L) Final Cl 04/11/2023 11:10:20 102 98-107 (mm ol/L) Final CO2 04/11/2023 11:10:20 24 22-32 (mmo l/L) Final Anion gap 04/11/2023 11:10:20 13 7-15 (mmol /L) Final Glucose 04/11/2023 11:10:20 129 Above high normal 70 -120 (mg/dL) Final Albumin 04/11/2023 11:10:20 4.6 3.8-5.0 (g /dL) Final AST (Aspartate aminotransferase) 04/11/2023 11:10:20 30 10-35 (U/L) Fin al Alk Phos 04/11/2023 11:10:20 97 35-130 (U/ L) Final Bilirubin, Total 04/11/2023 11:10:20 0.3 <=1 .2 (mg/dL) Final Calcium 04/11/2023 11:10:20 10.0 8.4-10.2 ( mg/dL) Final Protein 04/11/2023 11:10:20 7.1 6.0-8.3 (g /dL) Final ALT (Alanine aminotransferase) 04/11/2023 11:10:20 25 10-35 (U/L) Kwan singh Performing Location [facility] [address] [place] [address]
--- OUTSIDE RECORDS SUMMARY | 2023-08-24 04:11 | External Medical Summary | Summary of Care ---
Author Name Unknown Organization [facility] Address [address] [facility] [place] [address] Phone [phone] Care Team Providers Care Environmental Remediation Specialist Name Role Phone Unavailable Primary Care Provider Unavailabl e Reason for Visit * Reason Onset Date Comments FYI 04/19/2023 LGI Encounter Details Date Type Department Care Team (Late st Contact Info) Description 04/19/2023 Telephone Family Practice [address] [facility] [place] [id number] Fred Eng DO [address] [place] [address] FYI (LGI) Allergies No known active allergiesdocumented as of this encounter (statuses as of 04/19/2023) Medications Medication Sig Dispensed Refills Start Date End Date Status Zoster Vac Recomb Adjuvanted 50 MCG/0.5ML Intramuscular Suspension Reconstituted (Shingrix)Indications:N eed for vaccination for zoster Inject 0.5 mL into a large muscle now and repeat dose in 60 to 180 days 1 Each 1 11/07/2021 Active Valsartan 80 MG Oral Tablet (Diovan)Indications:HTN , goal below 140/90 Take 1 Tablet by mouth in the morning. 90 Tablet 3 07/18/2022 Active amLODIPine Besylate 10 MG Oral Tablet (Norvasc)Indications:HT N, goal below 130/80 Take 1 Tablet by mouth in the morning. 90 Tablet 3 09/07/2022 Active oxyCODONE-Acetaminophen 5-325 MG Oral Tablet (Percocet) Take 1 Tablet by mouth every 6 hours as needed for Pain, Breakthrough. 14 Tablet 0 11/17/2022 Active Ventolin HFA 108 (90 Base) MCG/ACT Inhalation Aerosol SolutionIndications:Chr onic nonspecific lung disease,Chronic rhinitis INHALE BY MOUTH 2 PUFFS IN THE MORNING AND 2 PUFFS AT NOON AND 2 PUFFS IN THE EVENING AND 2 PUFFS BEFORE BEDTIME. 18 g 5 02/13/2023 Active Mirtazapine 15 MG Oral Tablet Disintegrating (Remeron Soltab) Place 1 Tablet on tongue at bedtime. 0 Active documented as of this encounter (statuses as of 04/19/2023) Active Problems Problem Noted Date Diagnosed Date [...] as of this encounter (statuses as of 04/19/2023) Resolved Problems Problem Noted Date Diagnosed Date [...] as of this encounter (statuses as of 04/19/2023) Immunizations Name Administration Dates Next Due Pneumococcal Conjugate Vacci ne, 20-valent ([id number]) 11/07/2021 Pneumococcal Polysaccharide PPV23 (Pneumovax) 02/10/2010 Seasonal [...] encounter Miscellaneous Notes * Telephone Encounter - Russ Weinstein DO - 04/19/2023 3:55 PM EST I haven't seen this patient and am not her PCP But would advise f/u appt with Provider she has seen in past And discuss this finding * Addendum Note - Marco Antonio Duffy LPN - 04/19/2023 12:54 PM ESTAddended by: MARCO ANTONIO DUFFY on: 04/19/2023 12:54 PM Modules accepted: Orders * Telephone Encounter - Marco Antonio Duffy LPN - 04/19/2023 12:53 PM EST Through advanced analysis/trending of this patients Complete Blood Counts (CBC), they have been identified to have a positive LGI flag and at a higher risk for hidden bleeding in the intestine dueto several conditions such as ulcers, colon polyps, harmless conditions, or even colon cancer. This advanced analysis estimates the patient's risk of these kinds of conditions. It only indicatesthat the patient's chances to have one of these conditions are higher compared to most people. It does not indicate that the patient has any of these conditions but is highly recommended the patient have a colonoscopy for further evaluation. Patients with a positive LGI flag have a 40% chance (six times more likely) of having a serious GI pathology finding versus unflagged patients. I have contacted the patient regarding scheduling a colonoscopy. Colonoscopy outreach: Patient declined, sent to PCP for review Thank you. Marco Antonio Duffy LPN * Telephone Encounter - Marco Antonio Duffy LPN - 04/19/2023 12:45 PM EST Through advanced analysis/trending of this patients Complete Blood Counts (CBC), they have been identified to have a positive LGI flag and at a higher risk for hidden bleeding in the intestine dueto several conditions such as ulcers, colon polyps, harmless conditions, or even colon cancer. This advanced analysis estimates the patient's risk of these kinds of conditions. It only indicatesthat the patient's chances to have one of these conditions are higher compared to most people. It does not indicate that the patient has any of these conditions but is highly recommended the patient have a colonoscopy for further evaluation. Patients with a positive LGI flag have a 40% chance (six times more likely) of having a serious GI pathology finding versus unflagged patients. I have contacted the patient regarding scheduling a colonoscopy. Colonoscopy outreach: Left message Thank you. Marco Antonio Duffy LPN documented in this encounter Plan of Treatment Upcoming Encounters Date Type Department Care Team (Late st Contact Info) Description 10/17/2023 1:30 PM EDT Laboratory Laboratory [address] [place] [phone] [address] [place] [address] 10/24/2023 2:00 PM EDT Office Visit Hematology/Oncology [place] [address] [place] [address] Amarilis Hernandez MD [address] [place] [address] Health Maintenance Due Date Last Done Comments DISCUSS TOBACCO CESSATION (REFER TO SMARTSET #4934) 1955 COVID-19 Vaccine (#1) 1955 Alpha-1 Antitrypsin [...] 02/10/2010 LUNG CANCER SCREENING - USE SMARTSET 95566 Completed 03/08/2023, 03/01/2022, 04/06/2014 GARDASIL-HPV IMMUNIZATION SERIES Aged Out No longer eligible based on patient's age to complete this topic MENINGOCOCCAL (MENACTRA/MENVEO) Aged Out No longer eligible based on patient's age to complete this topic documented as of this encounter Medical Devices Not on filedocumented as of this encounter
--- OUTSIDE RECORDS SUMMARY | 2023-08-24 04:11 | External Medical Summary | Summary of Care ---
Author Name Unknown Organization [facility] Address [address] [facility] [place] [address] Phone [phone] Care Team Providers Care Loom Operator Apprentice Name Role Phone Unavailable Primary Care Provider Unavailabl e Reason for Visit * Reason Comments eRx-Medication Refill Encounter Details Date Type Department Care Team (Late st Contact Info) Description 04/20/2023 Refill Family Practice [facility] [address] [facility] [place] [address] Fred Eng, DO [address] [place] [phone] HTN, goal below 140/90 Allergies No known active allergiesdocumented as of this encounter (statuses as of 04/21/2023) Medications Medication Sig Dispensed Refills Start Date [...] as of this encounter (statuses as of 04/21/2023) Active Problems Problem Noted Date Diagnosed Date [...] as of this encounter (statuses as of 04/21/2023) Resolved Problems Problem Noted Date Diagnosed Date [...] as of this encounter (statuses as of 04/21/2023) Immunizations Name Administration Dates Next Due Pneumococcal Conjugate Vacci ne, 20-valent ([id number]) 11/07/2021 Pneumococcal Polysaccharide PPV23 (Pneumovax) 02/10/2010 Seasonal [...] encounter Miscellaneous Notes * Telephone Encounter - Corrine Oconnell RPh - 04/21/2023 1:50 PM EST Refused Prescriptions: Disp Refills Valsartan 40 MG Oral Tablet (Diovan) 90 Tab*3 Sig: TAKE 1 TABLET BY MOUTH EVERY DAYRefused By: CORRINE OCONNELL for Refusal: Refill Not AppropriateReasonfor Refusal Comment: dose increased to 80mg 07/18/22 Electronically signed by Corrine Oconnell [facility] at 04/21/2023 1:50 PM EST documented in this encounter Plan of Treatment Upcoming Encounters Date Type Department Care Team (Late st Contact Info) Description 05/08/2023 11:20 AM EST Office Visit Family [facility] [address] [place] [address] Loyda Cuellar CRNP [address] [place] [address] 10/17/2023 1:30 PM EDT Laboratory Laboratory [address] [place] [phone] [place], [address] [place] [address] 10/24/2023 2:00 PM EDT Office Visit Hematology/Oncology [facility] [place] [address] [place] [address] Amarilis Hernandez MD [address] [place] [address] Health Maintenance Due Date Last Done Comments DISCUSS TOBACCO CESSATION (REFER TO SMARTSET #5737) 1955 COVID-19 Vaccine (#1) 1955 Alpha-1 Antitrypsin [...] 02/10/2010 LUNG CANCER SCREENING - USE SMARTSET 71638 Completed 03/08/2023, 03/01/2022, 04/06/2014 GARDASIL-HPV IMMUNIZATION SERIES Aged Out No longer eligible based on patient's age to complete this topic MENINGOCOCCAL (MENACTRA/MENVEO) Aged Out No longer eligible based on patient's age to complete this topic documented as of this encounter Medical Devices Not on filedocumented as of this encounter Visit Diagnoses Diagnosis HTN, goal below 140/90 Unspecified essential hypertension documented in this encounter
--- OUTSIDE RECORDS SUMMARY | 2023-08-24 04:11 | External Medical Summary ---
Author Name Unknown Address Unknown Organization K01:[facility] [place] - [address] [place] [address] Laboratory Report Ordering Provider Test Date Status DOV OLIVAO 04/11/2023 11:10:20 Final Observation Date Value Abnormality Reference (Units ) Status HbA1C 04/11/2023 11:10:20 6.7 Above high normal 4. 0-5.6 (%) Final The use of HbA1c to monitor glycemic status is based on normal hemoglobin and HbA composition. This test should not be used in patients with abnormal hemoglobin that affects the half life of the red blood cell or the in vivo glycation rates. Glucose, estimated average 04/11/2023 11:10:20 146 Above high normal <126 (mg/dL) Kwan singh Performing Location [facility] [place] - [address] [place] [address]
--- OUTSIDE RECORDS SUMMARY | 2023-08-24 04:11 | External Medical Summary | Summary of Care ---
Author Name Unknown Organization [facility] Address [address] [facility] [place] [address] Phone [phone] Care Team Providers Care Bar Waiter/Waitress Name Role Phone Unavailable Primary Care Provider Unavailabl e Encounter Details Date Type Department Care Team (Late st Contact Info) Description 04/19/2023 External Data Patient Risk Medial Allergies No known active allergiesdocumented as of [...] Next Due Pneumococcal Conjugate Vacci ne, 20-valent ([id number]) 11/07/2021 Pneumococcal Polysaccharide PPV23 (Pneumovax) 02/10/2010 Seasonal [...] Description 10/17/2023 1:30 PM EDT Laboratory Laboratory [address] [place] [phone] [address] [place] [address] 10/24/2023 2:00 PM EDT Office Visit Hematology/Oncology [facility] [address] [place] [address] Amarilis Hernandez MD [address] [place] [address] Health Maintenance Due Date Last Done Comments DISCUSS TOBACCO CESSATION (REFER TO SMARTSET #7240) 1955 COVID-19 Vaccine (#1) 1955 Alpha-1 Antitrypsin [...] 02/10/2010 LUNG CANCER SCREENING - USE SMARTSET 08471 Completed 03/08/2023, 03/01/2022, 04/06/2014 GARDASIL-HPV IMMUNIZATION SERIES Aged Out No longer eligible based on patient's age to complete this topic MENINGOCOCCAL (MENACTRA/MENVEO) Aged Out No longer eligible based on patient's age to complete this topic documented as of this encounter Medical Devices Not on filedocumented as of this encounter
--- OUTSIDE RECORDS SUMMARY | 2023-08-24 04:11 | External Medical Summary ---
Author Name Unknown Address Unknown Organization K09:[facility] [address] [place] [address] Laboratory Report Ordering Provider Test Date Status ESTEPHANIA GRANDA 04/11/2023 11:10:20 Final Observation Date Value Abnormality Reference (Units ) Status SYNC LEUKOCYTES IN BLOOD BY AUTOMATED COUNT 04/11/2023 11:10:20 15.26 Above high normal 4.00-10.80 (K/uL) Final Segs 04/11/2023 11:10:20 68.7 40.0-75.0 (%) Final Lymphs % 04/11/2023 11:10:20 24.0 18.0-42.0 (%) Final Monos 04/11/2023 11:10:20 6.7 1.0-11.0 (%) Final Eosinophils 04/11/2023 11:10:20 0.3 0.0-6.0 (%) Final Basos 04/11/2023 11:10:20 0.3 0.0-2.0 (%) Final Absolute Segs 04/11/2023 11:10:20 10.48 Above high normal 1.80-7.70 (K/uL) Final Lymphs, absolute 04/11/2023 11:10:20 3.67 1.00-4.80 (K/ul) Final Monos, Abs 04/11/2023 11:10:20 1.02 0.00-1.10 (K/uL) Final Eos, Abs 04/11/2023 11:10:20 0.05 0.00-0.70 (K/uL) Final Basos, Abs 04/11/2023 11:10:20 0.04 0.00-0.20 (K/uL) Final Performing Location [facility] [place] [address]
--- OUTSIDE RECORDS SUMMARY | 2023-08-24 04:11 | External Medical Summary | Summary of Care ---
Author Name Unknown Organization [facility] Address [address] [facility] [address] Phone [phone] Care Team Providers Care Framing Carpenter Name Role Phone Unavailable Primary Care Provider Unavailabl e Reason for Visit * Reason Comments Outpatient Testing Encounter Details Date Type Department Care Team (Late st Contact Info) Description 04/11/2023 11:00 AM EST Laboratory Laboratory [facility] [address] [place] [phone] [facility] [address] [facility] [place] [address] Iron deficiency; Type 2 diabetes mellitus without complication, without long-term current use of insulin (HCC) Allergies No known active allergiesdocumented as of this encounter (statuses as of 04/11/2023) Medications Medication Sig Dispensed Refills Start Date End Date Status Zoster Vac Recomb Adjuvanted 50 MCG/0.5ML Intramuscular Suspension Reconstituted (Shingrix)Indications: Need for vaccination for zoster Inject 0.5 mL into a large muscle now and repeat dose in 60 to 180 days 1 Each 1 11/07/2021 Active Valsartan 80 MG Oral Tablet (Diovan)Indications:HT N, goal below 140/90 Take 1 Tablet by mouth in the morning. 90 Tablet 3 07/18/2022 Active amLODIPine Besylate 10 MG Oral Tablet (Norvasc)Indications:H TN, goal below 130/80 Take 1 Tablet by mouth in the morning. 90 Tablet 3 09/07/2022 Active Ferrous Sulfate 325 (65 Fe) MG Oral Tablet Take 1 Tablet by mouth daily with breakfast. 0 Active oxyCODONE-Acetaminophe n 5-325 MG Oral Tablet (Percocet) Take 1 Tablet by mouth every 6 hours as needed for Pain, Breakthrough. 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 30 Tablet 5 12/12/2022 Active Iron-Vitamin C 100-250 MG Oral TabletIndications:Iron deficiency TAKE 1 TABLET BY MOUTH EVERY DAY IN THE MORNING 90 Tablet 1 01/01/2023 Active Ventolin HFA 108 (90 Base) MCG/ACT Inhalation Aerosol SolutionIndications:Ch ronic nonspecific lung disease,Chronic rhinitis INHALE BY MOUTH 2 PUFFS IN THE MORNING AND 2 PUFFS AT NOON AND 2 PUFFS IN THE EVENING AND 2 PUFFS BEFORE BEDTIME. 18 g 5 02/13/2023 Active documented as of this encounter (statuses as of 04/11/2023) Active Problems Problem Noted Date Diagnosed Date Type 2 diabetes mellitus with diabetic cataract [...] as of this encounter (statuses as of 04/11/2023) Resolved Problems Problem Noted Date Diagnosed Date [...] as of this encounter (statuses as of 04/11/2023) Immunizations Name Administration Dates Next Due Pneumococcal Conjugate Vacci ne, 20-valent ([id number]) 11/07/2021 Pneumococcal Polysaccharide PPV23 (Pneumovax) 02/10/2010 Seasonal [...] PM EST Office Visit Hematology/Oncology [facility] [place] [address] [place] [address] Amarilis Hernandez MD [address] [place] [address] Pending Results Name Type Priority Associated Diagnoses Date /Time COMPREHENSIVE METABOLIC PANEL Lab Routine Iron deficiency 04/11/2023 11:10 AM EST FERRITIN Lab Routine Iron deficiency 04/11/2023 11:10 AM EST IRON SCREEN, INCLUDING TIBC Lab Routine Iron deficiency 04/11/2023 11:10 AM EST HEMOGLOBIN A1C Lab Routine Type 2 diabetes mellitus without complication, without long-term current use of insulin (HCC) 04/11/2023 11:10 AM EST Health Maintenance Due Date Last Done Comments DISCUSS TOBACCO CESSATION (REFER TO SMARTSET #1116) 1955 COVID-19 Vaccine (#1) 1955 Alpha-1 Antitrypsin [...] 2022 01/27/2022, 11/22/2017, 03/16/2015, Additional history exists HbA1c 01/09/2023 07/10/2022, 1112/2021, 07/22/2020, Additional history exists Albumin/Creatinine Ratio 05/11/2023 05/11/2022 Diabetic Foot Exam 05/11/2023 05/11/2022 Diabetic Eye Exam 07/04/2023 07/03/2022, 04/04/2022 GFR 09/23/2023 09/22/2022, 04/0 06/2022, 07/03/2022, Additional history exists O2 ASSESSMENT COMPLETED IN PAST YEAR FOR COPD 12/13/2023 12/12/2022 DXA Scan 01/04/2024 01/03/2022, 08/07, 08/20/2007, Additional history exists Mammogram 01/16/2024 01/15/2023, 12/09, 12/15/2021, Additional history exists Lipid Panel 11/07/2026 11/07/2021, 07/08, 05/21/2019, Additional history exists Pneumococcal Vaccine: 65+ Years Completed 11/07/2021, 02/10/2010 LUNG CANCER SCREENING - USE SMARTSET 11663 Completed 03/08/2023, 03/01/2022, 04/06/2014 GARDASIL-HPV IMMUNIZATION SERIES Aged Out No longer eligible based on patient's age to complete this topic MENINGOCOCCAL (MENACTRA/MENVEO) Aged Out No longer eligible based on patient's age to complete this topic documented as of this encounter Medical Devices Not on filedocumented as of this encounter Procedures Procedure Name Priority Date/Time Associated Diagnosis Comments DIFFERENTIAL, AUTOMATED Routine 04/11/2023 11:10 AM EST Iron deficiency CBC Routine 04/11/2023 11:10 AM EST Iron deficiency CBC Routine 04/11/2023 11:10 AM EST Iron deficiency documented in this encounter Results * (ABNORMAL) DIFFERENTIAL, AUTOMATED (04/11/2023 11:10 AM EST) WBC 15.26(H) 4.00 - 10.80 K/uL 04/11/2023 11:20 AM EST [facility]02 Neutrophils % 68.7 40.0 - 75.0 % 04/11/2023 11:20 AM EST [facility] Lymphocytes % 24.0 18.0 - 42.0 % 04/11/2023 11:20 AM EST [facility]02 Monocytes % 6.7 1.0 - 11.0 % 04/11/2023 11:20 AM EST [facility]02 Eosinophils % 0.3 0.0 - 6.0 % 04/11/2023 11:20 AM EST [facility]02 Basophils % 0.3 0.0 - 2.0 % 04/11/2023 11:20 AM EST [facility]02 Absolute Neutrophils 10.48(H) 1.80 - 7.70 K/uL 04/11/2023 11:20 AM EST [facility]02 Absolute Lymphocytes 3.67 1.00 - 4.80 K/ul 04/11/2023 11:20 AM EST [facility]02 Absolute Monocytes 1.02 0.00 - 1.10 K/uL 04/11/2023 11:20 AM EST [facility]02 Absolute Eosinophils 0.05 0.00 - 0.70 K/uL 04/11/2023 11:20 AM [facility] 56 Absolute Basophils 0.04 0.00 - 0.20 K/uL 04/11/2023 11:20 AM [facility] 56 Blood Venous blood specimen / Unknown Venipuncture / Unknown 04/11/2023 11:10 AM EST 04/11/2023 11:11 AM EST Amarilis Hernandez MD LAB BLOOD [facility] [address] [place] [address] * (ABNORMAL) CBC (04/11/2023 11:10 AM EST) WBC 15.26(H) 4.00 - 10.80 K/uL 04/11/2023 11:[address] RBC 4.80 3.85 - 5.15 M/uL 04/11/2023 11:[address] HGB 13.5 12.0 - 15.3 g/dL 04/11/2023 11:20 AM [facility] 56 HCT 41.4 36.0 - 45.2 % 04/11/2023 11:20 AM [facility] 56 MCV 86.3 81.5 - 97.5 fL 04/11/2023 11:20 AM [facility] 56 MCH 28.1 27.0 - 34.0 pg 04/11/2023 11:20 AM [facility] 56- MCHC 32.6 32.0 - 36.0 g/dL 04/11/2023 11:20 AM [facility] 56 RDW 13.5 11.5 - 15.5 % 04/11/2023 11:20 AM [facility] 56- PLT 485(H) 140 - 400 K/uL 04/11/2023 11:20 AM [facility] 56 MPV 8.9 6.6 - 11.1 fL 04/11/2023 11:20 AM [facility] 56-02 Blood Venous blood specimen / Unknown Venipuncture / Unknown 04/11/2023 11:10 AM EST 04/11/2023 11:11 AM EST Amarilis Hernandez MD LAB BLOOD [facility] [place] [address] documented in this encounter Visit Diagnoses Diagnosis Iron deficiency Iron deficiency anemia, unspecified Type 2 diabetes mellitus without complication, without long-term current use of insulin (HCC) documented in this encounter
--- OUTSIDE RECORDS SUMMARY | 2023-08-24 04:11 | External Medical Summary ---
Author Name Unknown Address Unknown Organization K01:LABORATORY [facility] [place] - [address] [place] [address] Laboratory Report Ordering Provider Test Date Status ESTEPHANIA GRANDA 04/11/2023 11:10:20 Final Observation Date Value Abnormality Reference (Units ) Status Iron 04/11/2023 11:10:20 33 33-151 (ug/dL) Final Iron-binding capacity 04/11/2023 11:10:20 355 250-425 (ug/dL) Final Transferrin Sat % 04/11/2023 11:10:20 9 Below low normal 15-55 (%) Final Performing Location [facility] [place] - [address] [place] [address]
--- OUTSIDE RECORDS SUMMARY | 2023-08-24 04:11 | External Medical Summary ---
Author Name Unknown Address Unknown Organization K01:[facility]ORY [facility] [place] - [address] [place] [address] Laboratory Report Ordering Provider Test Date Status ESTEPHANIA GRANDA 04/11/2023 11:10:20 Final Observation Date Value Abnormality Reference (Units ) Status Ferritin 04/11/2023 11:10:20 59 13-150 (ng /mL) Final Postmenopausal women have hi gher ferritin levels than pre-menopausal women. The above reference interval is based on pre-menopausal women. Performing Location [facility] [place] - [address] [place] [address]
--- OUTSIDE RECORDS SUMMARY | 2023-08-24 04:11 | External Medical Summary | Summary of Care ---
Author Name Unknown Organization [facility] Address [address] [facility] [place] [address] Phone [phone] Care Team Providers Care Water And Sewer Systems Superintendent Name Role Phone Unavailable Primary Care Provider Unavailabl e Reason for Visit * Reason Onset Date Comments FYI 04/19/2023 LGI Encounter Details Date Type Department Care Team (Late st Contact Info) Description 04/19/2023 Telephone Family Practice [address] [facility], [address] [place] [address] Fred Eng DO [address] [place] [address] FYI (LGI) Allergies No known active allergiesdocumented [...] Next Due Pneumococcal Conjugate Vacci ne, 20-valent ([id number]) 11/07/2021 Pneumococcal Polysaccharide PPV23 (Pneumovax) 02/10/2010 Seasonal [...] encounter Miscellaneous Notes * Telephone Encounter - Camryn Leal LPN - 04/19/2023 4:15 PM EST Called patient. Placed on 05/08 with Loyda BROWN @ 11:20 a.m. to get established and discuss LGImarker * Telephone Encounter - Russ Weinstein DO [...] 05/08/2023 11:20 AM EST Office Visit Family Practice [facility] [address] [place] [address] Loyda Cuellar CRNP [address] [place] [address] 10/17/2023 1:30 PM EDT Laboratory Laboratory [address] [place] [phone] [place], [address] [place] [address] 10/24/2023 2:00 PM EDT Office Visit Hematology/Oncology [facility] [address] [place] [address] Amarilis Hernandez MD [address] [place] [address] Health Maintenance Due Date Last Done Comments DISCUSS TOBACCO CESSATION (REFER TO SMARTSET #3441) 1955 COVID-19 Vaccine (#1) 1955 Alpha-1 Antitrypsin [...] 02/10/2010 LUNG CANCER SCREENING - USE SMARTSET 58625 Completed 03/08/2023, 03/01/2022, 04/06/2014 GARDASIL-HPV IMMUNIZATION SERIES Aged Out No longer eligible based on patient's age to complete this topic MENINGOCOCCAL (MENACTRA/MENVEO) Aged Out No longer eligible based on patient's age to complete this topic documented as of this encounter Medical Devices Not on filedocumented as of this encounter
--- OUTSIDE RECORDS SUMMARY | 2023-08-24 04:11 | External Medical Summary | Summary of Care ---
Author Name Unknown Organization [facility] Address [address] [facility] [place] [address] Phone [phone] Care Team Providers Care Community Mental Health Worker Name Role Phone Unavailable Primary Care Provider Unavailabl e Reason for Visit * Reason Onset Date Comments FYI 04/19/2023 LGI Encounter Details Date Type Department Care Team (Late st Contact Info) Description 04/19/2023 Telephone Family Practice 65 [facility], [address] [place] [address] Fred Eng DO [address] [place] [address] FYI (LGI) Allergies No known active allergiesdocumented [...] Next Due Pneumococcal Conjugate Vacci ne, 20-valent ([id number]) 11/07/2021 Pneumococcal Polysaccharide PPV23 (Pneumovax) 02/10/2010 Seasonal [...] encounter Miscellaneous Notes * Addendum Note - Marco Antonio Duffy [...] Description 10/17/2023 1:30 PM EDT Laboratory Laboratory [address] [place] [phone] [address] [place] [address] 10/24/2023 2:00 PM EDT Office Visit Hematology/Oncology [facility] [address] [place] [address] Amarilis Hernandez MD [address] [place] [address] Health Maintenance Due Date Last Done Comments [...] 02/10/2010 LUNG CANCER SCREENING - USE SMARTSET 44556 Completed 03/08/2023, 03/01/2022, 04/06/2014 GARDASIL-HPV IMMUNIZATION SERIES Aged Out No longer eligible based on patient's age to complete this topic MENINGOCOCCAL (MENACTRA/MENVEO) Aged Out No longer eligible based on patient's age to complete this topic documented as of this encounter Medical Devices Not on filedocumented as of this encounter
--- OUTSIDE RECORDS SUMMARY | 2023-08-24 04:11 | External Medical Summary ---
Author Name Unknown Address Unknown Organization K09:[facility] [place] [address] Laboratory Report Ordering Provider Test Date Status ESTEPHANIA GRANDA 04/11/2023 11:10:20 Final Observation Date Value Abnormality Reference (Units ) Status WBC, Total 04/11/2023 11:10:20 15.26 Above high normal 4 .00-10.80 (K/uL) Final RBC 04/11/2023 11:10:20 4.80 3.85-5.15 (M/uL) Final Hemoglobin 04/11/2023 11:10:20 13.5 12.0-15.3 (g/dL) Final HCT 04/11/2023 11:10:20 41.4 36.0-45.2 (%) Final MCV 04/11/2023 11:10:20 86.3 81.5-97.5 (fL) Final MCH 04/11/2023 11:10:20 28.1 27.0-34.0 (pg) Final MCHC 04/11/2023 11:10:20 32.6 32.0-36.0 (g/dL) Final RDW 04/11/2023 11:10:20 13.5 11.5-15.5 (%) Final Platelets 04/11/2023 11:10:20 485 Above high normal 14 0-400 (K/uL) Final MPV 04/11/2023 11:10:20 8.9 6.6-11.1 ( fL) Final Performing Location [facility] [place] [address]
--- OUTSIDE RECORDS SUMMARY | 2023-08-24 04:11 | External Medical Summary | Summary of Care ---
Author Name Unknown Organization [facility] Address [address] [facility] [place] [address] Phone [phone] Care Team Providers Care Category Development Analyst Name Role Phone Unavailable Primary Care Provider Unavailabl e Reason for Visit * Reason Onset Date Comments FYI 04/19/2023 LGI Encounter Details Date Type Department Care Team (Late st Contact Info) Description 04/19/2023 Telephone Family Practice [address] [facility], [address] [place] [address] Fred Eng DO [address] [place] [address] FYI (LGI) Allergies No known active allergiesdocumented [...] Next Due Pneumococcal Conjugate Vacci ne, 20-valent ([id number]) 11/07/2021 Pneumococcal Polysaccharide PPV23 (Pneumovax) 02/10/2010 Seasonal [...] Description 10/17/2023 1:30 PM EDT Laboratory Laboratory [address] [place] [phone] [address] [place] [address] 10/24/2023 2:00 PM EDT Office Visit Hematology/Oncology [facility] [address] [place] [address] Amarilis Hernandez MD [address] [place] [address] Health Maintenance Due Date Last Done Comments [...] 02/10/2010 LUNG CANCER SCREENING - USE SMARTSET 42536 Completed 03/08/2023, 03/01/2022, 04/06/2014 GARDASIL-HPV IMMUNIZATION SERIES Aged Out No longer eligible based on patient's age to complete this topic MENINGOCOCCAL (MENACTRA/MENVEO) Aged Out No longer eligible based on patient's age to complete this topic documented as of this encounter Medical Devices Not on filedocumented as of this encounter
--- OUTSIDE RECORDS SUMMARY | 2023-08-24 04:11 | External Medical Summary | Summary of Care ---
Author Name Unknown Organization [facility] Address [address] [place] [address] Phone [phone] Care Team Providers Care Visual Merchandising Associate Name Role Phone Unavailable Primary Care Provider Unavailabl e Reason for Visit * Reason Onset Date Comments Test Results 04/11/2023 Encounter Details Date Type Department Care Team (Late st Contact Info) Description 04/11/2023 Telephone Family Practice [address] [facility] [place] [address] [place] [phone] Fred Eng DO [address] [place] [id number] Test Results Allergies No known active allergiesdocumented as of this encounter (statuses as of 04/12/2023) Medications Medication Sig Dispensed Refills Start Date [...] as of this encounter (statuses as of 04/12/2023) Active Problems Problem Noted Date Diagnosed Date [...] as of this encounter (statuses as of 04/12/2023) Resolved Problems Problem Noted Date Diagnosed Date [...] as of this encounter (statuses as of 04/12/2023) Immunizations Name Administration Dates Next Due Pneumococcal Conjugate Vacci ne, 20-valent ([id number]) 11/07/2021 Pneumococcal Polysaccharide PPV23 (Pneumovax) 02/10/2010 Seasonal [...] encounter Miscellaneous Notes * Telephone Encounter - Jose Luis Davidson RN - 04/12/2023 8:40 AM EST Called patient and informed her of Dr. Eng's previous message. She verbalized understanding. * Telephone Encounter - Fred Eng DO - 04/11/2023 6:48 PM EST Lab studies shows diabetes well controlled. Advise continue diabetic diet and exercise documented in this encounter Plan of Treatment Upcoming Encounters Date Type Department Care Team (Late st Contact Info) Description 04/18/2023 2:30 PM EST Office Visit Hematology/Oncology Clari Perez [place] [address] [place] [id number] Amarilis Hernandez MD [address] [facility] [place] [id number] Health Maintenance Due Date Last Done Comments DISCUSS TOBACCO CESSATION (REFER TO SMARTSET #4649) 1955 COVID-19 Vaccine (#1) 1955 Alpha-1 Antitrypsin [...] 02/10/2010 LUNG CANCER SCREENING - USE SMARTSET 89836 Completed 03/08/2023, 03/01/2022, 04/06/2014 GARDASIL-HPV IMMUNIZATION SERIES Aged Out No longer eligible based on patient's age to complete this topic MENINGOCOCCAL (MENACTRA/MENVEO) Aged Out No longer eligible based on patient's age to complete this topic documented as of this encounter Medical Devices Not on filedocumented as of this encounter
[2023-08-24 06:59] LABS: Basophils # (auto) 0.07 K/uL (0.00-0.20); Basophils % (auto) 0.4 %; Eosinophils # (auto) 0.07 K/uL (0.00-0.50); Eosinophils % (auto) 0.4 %; Hematocrit (blood only) 39.4 % (37.0-47.0); Hemoglobin 13.1 g/dl (12.0-16.0); Immature Granulocytes # (auto) 0.13 K/uL (0.01-0.20); Immature Granulocytes % (auto) 0.8 %; Lymphocytes # (auto) 4.28 K/uL (1.20-3.40); Lymphocytes % (auto) 27.5 %; Mean Corpuscular Hemoglobin 27.9 pg (25.0-34.0); Mean Corpuscular Hgb Conc 33.2 g/dL (32.0-36.0); Mean Platelet Volume 8.4 fL (9.4-12.4); Monocytes # (auto) 1.02 K/uL (0.11-0.59); Monocytes % (auto) 6.5 %; Neutrophils # (auto) 10.01 K/uL (1.40-6.50); Neutrophils % (auto) 64.4 %; Platelet Count 491 K/uL (130-400); RDW Coefficient of Variation 14.3 % (11.5-14.5); RDW Standard Deviation 43.5 fL (36.4-46.3); Red Blood Count 4.69 M/uL (4.20-5.40); White Blood Count 15.58 K/ul (4.8-10.8)
--- NOTE | 2023-08-24 07:14 | Pharmacy Report ---
- Date of Service August 24, 2023 - Pharmacy CVA/TIA Medication Review Medications to Prevent Stroke handout has been added to the patients discharge packet. Antiplatelet(s) * aspirin 81 mg daily Cholesterol * High intensity statin: atorvastatin 40 mg daily DVT Prophylaxis * Enoxaparin SQ Therapeutic Anticoagulation * No history of Afib/Aflutter per notes Type 2 Diabetes * Patient has T2DM, but per provider, a diabetes medication with proven CVD benefit will be deferred to their outpatient provider due to familiarity with risks/benefits of such therapies. "Medications to prevent stroke" handout has already been added to the patient's discharge packet, which instructs the patient to follow up with their outpatient provider to evaluate which diabetes medication with proven CVD benefit is best for them
[2023-08-24 08:55] LABS: Calcium 9.4 mg/dl (8.6-10.3); Potassium 4.2 mmol/L (3.5-5.1)
[2023-08-24] MEDS: ASPIRIN 81 MG ECTAB PO SCH (08:57)
[2023-08-24 09:01] LABS: BUN Creatinine Ratio 22.4 (10-20); Creatinine Clr Calc Pharmacy 40.3 ml/min; Est GFR (Non-African American) 69.9 ml/min
[2023-08-24] MEDS: PROMETHAZINE HCL 6.25 MG in SODIUM CHLORIDE 0.9% 50 ML IV PRN (09:54)
[2023-08-24] MEDS: ACETAMINOPHEN 325 MG TAB PO PRN (16:15)
--- NOTE | 2023-08-24 17:04 | Hospitalist Progress Note ---
Date of Service August 24, 2023 Assessment & Plan (1) Encephalopathy: Plan: Acute metabolic encephalopathy Likely multifactorial secondary to CVA, UTI Mental status back to baseline Imaging studies as below Monitor Acute CVA--POA H/O noncompliance with aspirin use--counseled --MRI brain:Findings concerning for a tiny focus of acute ischemic injury within the left pulvinar nucleus. --Head CTA:Normal head CTA --Neck CTA:No acute findings in the arteries of the neck. --Lipid Panel reviewed. LDL 31 --ECHO pending Appreciate neurology input PT OT, speech eval requested Continue aspirin, statin Amlodipine, valsartan held to allow permissive hypertension Resume antihypertensives tomorrow Suspected UTI Urine culture not contributory--likely contaminated sample Continue Rocephin for now Repeat urine culture--pending Acute Bronchitis COPD No pneumonia on CTA No wheezing on exam Procalcitonin Normal Empirically on Rocephin, doxycycline Hypertension Resume amlodipine, valsartan Monitor BP DM II HbA1c 6.8 Hold p.o. medications Continue insulin while hospitalized Monitor BGs Hyperlipidemia on statin Other chronic conditions PFO Intellectual impairment as per records Anxiety/mood disorder--continue home medication ongoing tobacco abuse--counseled to quit DVT Px: Lovenox SQ Code Status Full code Disposition Home with home health likely tomorrow Admission and Anticipated Discharge Date Admission Date: August 22, 2023 Subjective Patient is seen and examined at bedside Reported nausea, headache to RN Less cough today Poor historian Eager to get discharged Urine culture pending Denies any chest pain, dyspnea, vomiting, abdominal pain, focal weakness Review of Systems Review of Systems: All systems reviewed & are unremarkable except as noted in Subjective Physical Exam Physical Exam: Physical Exam: Vitals signs as noted above General Appearance:Moderately built and nourished, no apparent distress Head: normocephalic, Atraumatic Eyes: normal inspection, EOMI Neck: supple, Trachea midline Respiratory/Chest: Decreased breath sounds, CTA, No accessory muscle use Cardiovascular: S1, S2, No murmur Abdomen/GI:Soft, Non tender, Bowel sounds present Extremities/Musculoskeletal:normal inspection, no edema Neurologic/Psych:AAOX3, grossly no focal neurological deficits, decreased hearing Skin: normal color, warm Results & Data Results & Data Vital Signs (Past 12 Hours) Vital Signs Temp Pulse Pulse Resp BP Pulse Ox O2 Del Method 08/24/23 15:37 80 08/24/23 15:04 36.8 C 83 18 134/74 94 Room Air 08/24/23 10:37 36.8 C 84 18 154/70 H 97 Room Air 08/24/23 07:57 83 08/24/23 07:32 36.5 C 80 18 156/73 H 94 Room Air Laboratory Results Short CBC 08/24/23 Range/Units 06:36 WBC 15.58 H (4.8-10.8) K/ul Hgb 13.1 (12.0-16.0) g/dl Hct 39.4 (37.0-47.0) % Plt Count 491 H (130-400) K/uL BMP 08/24/23 06:36 Sodium 136 Potassium 4.2 Chloride 103 Carbon Dioxide 23 BUN 19 Creatinine 0.85 Glucose 115 H Calcium 9.4
[2023-08-24] MEDS: amLODIPine BESYLATE 5 MG TAB PO ONE (17:55)
[2023-08-24] MEDS: LORazepam 0.5 MG TAB PO PRN (23:15)
[2023-08-25 06:25] LABS: Hematocrit (blood only) 37.1 % (37.0-47.0); Hemoglobin 12.2 g/dl (12.0-16.0); Mean Corpuscular Hemoglobin 27.7 pg (25.0-34.0); Mean Corpuscular Hgb Conc 32.9 g/dL (32.0-36.0); Mean Corpuscular Volume 84.3 fL (80.0-100.0); Mean Platelet Volume 8.7 fL (9.4-12.4); Platelet Count 451 K/uL (130-400); RDW Standard Deviation 43.4 fL (36.4-46.3); White Blood Count 11.98 K/ul (4.8-10.8)
[2023-08-25 06:28] LABS: BUN Creatinine Ratio 33.3 (10-20); Calcium 8.9 mg/dl (8.6-10.3); Creatinine Clr Calc Pharmacy 45.7 ml/min; Est GFR (African American) 94.3 ml/min; Est GFR (Non-African American) 81.3 ml/min; Potassium 3.5 mmol/L (3.5-5.1)
[2023-08-25 06:57] LABS: Basophils # (auto) 0.08 K/uL (0.00-0.20); Basophils % (auto) 0.7 %; Eosinophils # (auto) 0.09 K/uL (0.00-0.50); Eosinophils % (auto) 0.8 %; Immature Granulocytes # (auto) 0.14 K/uL (0.01-0.20); Immature Granulocytes % (auto) 1.2 %; Lymphocytes # (auto) 5.13 K/uL (1.20-3.40); Lymphocytes % (auto) 42.8 %; Monocytes % (auto) 9.2 %; Neutrophils # (auto) 5.44 K/uL (1.40-6.50); Neutrophils % (auto) 45.3 %
[2023-08-25] MEDS: amLODIPine BESYLATE 5 MG TAB PO SCH (08:47)
[2023-08-25] MEDS: VALSARTAN 80 MG TAB PO SCH (08:47)
--- NOTE | 2023-08-25 12:30 | Hospitalist Progress Note ---
Date of Service August 25, 2023 Assessment & Plan (1) Encephalopathy: Plan: Acute metabolic encephalopathy Likely multifactorial secondary to CVA, UTI Mental status back to baseline Imaging studies as below Monitor Acute CVA--POA H/O noncompliance with aspirin use--counseled --MRI brain:Findings concerning for a tiny focus of acute ischemic injury within the left pulvinar nucleus. --Head CTA:Normal head CTA --Neck CTA:No acute findings in the arteries of the neck. --Lipid Panel reviewed. LDL 31 --ECHO: Moderate concentric LVH. Left ventricular wall motion is normal. EF greater than 70%. Grade 1 diastolic dysfunction. No significant valvular disease. Appreciate neurology input PT OT, speech eval requested Continue aspirin, statin Plan to discharge home today Advised to follow-up with neurology on discharge Suspected UTI Urine culture not contributory--likely contaminated sample Continue Rocephin Repeat urine culture--probable skin harsha Blood cultures negative to date Acute Bronchitis COPD No pneumonia on CTA No wheezing on exam Procalcitonin Normal Empirically on Rocephin, doxycycline Transition to oral antibiotics to complete the course Hypertension continue amlodipine, valsartan Monitor BP DM II HbA1c 6.8 Hold p.o. medications Continue insulin while hospitalized Monitor BGs Hyperlipidemia on statin Other chronic conditions PFO Intellectual impairment as per records Anxiety/mood disorder--continue home medication ongoing tobacco abuse--counseled to quit. Prefers to be discharged on nicotine patches. Advised no smoking while on nicotine patch DVT Px: Lovenox SQ Code Status Full code Disposition Home with home health Admission and Anticipated Discharge Date Admission Date: August 22, 2023 Subjective Patient is seen and examined at bedside States feeling well today Prefers to be discharged home today Cough continues to improve No new complaints Denies any chest pain, dyspnea, vomiting, abdominal pain, focal weakness Saturating well on room air Plan to be discharged home today Review of Systems Review of Systems: All systems reviewed & are unremarkable except as noted in Subjective Physical Exam Physical Exam: Physical Exam: Vitals signs as noted above General Appearance:Moderately built and nourished, no apparent distress Head: normocephalic, Atraumatic Eyes: normal inspection, EOMI Neck: supple, Trachea midline Respiratory/Chest: Decreased breath sounds, CTA, No accessory muscle use Cardiovascular: S1, S2, No murmur Abdomen/GI:Soft, Non tender, Bowel sounds present Extremities/Musculoskeletal:normal inspection, no edema Neurologic/Psych:AAOX3, grossly no focal neurological deficits, decreased hearing Skin: normal color, warm Results & Data Results & Data Vital Signs (Past 12 Hours) Vital Signs Temp Pulse Pulse Resp BP BP Pulse Ox 08/25/23 11:30 36.8 C 83 18 144/68 H 98 08/25/23 07:59 37.1 C 81 17 146/69 H 95 08/25/23 07:21 64 08/25/23 03:28 36.3 C L 63 18 123/74 97 O2 Del Method 08/25/23 11:30 Room Air 08/25/23 07:59 Room Air 08/25/23 07:21 08/25/23 03:28 Room Air Laboratory Results Short CBC 08/25/23 Range/Units 05:39 WBC 11.98 H (4.8-10.8) K/ul Hgb 12.2 (12.0-16.0) g/dl Hct 37.1 (37.0-47.0) % Plt Count 451 H (130-400) K/uL BMP 08/25/23 05:39 Sodium 137 Potassium 3.5 Chloride 106 Carbon Dioxide 24 BUN 25 H Creatinine 0.75 Glucose 92 Calcium 8.9
[2023-08-25] MEDS ORDERED: STROKE PATIENT DISCHARGE STA (12:40)
--- NOTE | 2023-08-25 12:41 | Discharge Summary ---
Date of Service August 25, 2023 Admission HPI Per Admitting Provider History obtained from patient and records. Medical history significant for COPD, HTN, hyperlipidemia, PFO, DM2 on oral medications, intellectual impairment as per records, anxiety/mood disorder, ongoing tobacco abuse. Last confinement April 2021 for expressive aphasia in the setting of COVID-19 illness. Unremarkable stroke workup except for small PFO on 2D echo. Neurology recommended aspirin for stroke prophylaxis on discharge. 2 days ago, patient noted transient achy right-sided abdominal pain associated with strong smelling urine at home. Cough symptoms productive of clear sputum. No chest pain, no SOB. Symptoms got better without treatment. Patient got sick again during orthodoxy dinner tonight. Transient stuttering symptoms. Denies headache, facial, arm or leg weakness. Not compliant with home aspirin Rx. SBP 200s, BSG 300s upon arrival at the ER. Ceftriaxone administered at the ER for possible sepsis. Patient currently feels much better, stuttering symptoms resolved. Medical History as above Surgical History : Subcutaneous tumor removal, section, cholecystectomy, BTL Family History : Alcoholism Personal/Social history : 1 pack daily, rare EtOH intake, disabled Admission Exam Per Admitting Provider GENERAL: Comfortable, slightly hard of hearing, no respiratory distress SKIN: Normal color, warm HEENT: [place] palpebral conjunctivae, no ptosis, dry buccal mucosa NECK : Supple, no tenderness CHEST : Decreased breath sounds, no tenderness HEART : RRR, no obvious murmurs ABDOMEN: Some distention, minimal right-sided tenderness EXTREMITIES : No LE swelling/tenderness, no other conspicuous deformities noted NEUROLOGIC : Coherent, no facial asymmetry, slightly hard of hearing, no other gross focality Principal Diagnosis Acute metabolic encephalopathy Acute cerebrovascular accident Acute Bronchitis Ongoing tobacco abuse Discharge Data Allergies Allergy/AdvReac Type Severity Reaction Status Date / Time No Known Allergies Allergy Verified 04/19/21 15:37 Consultations 08/22/23 23:27 ED Decision to Admit Stat 08/23/23 02:54 Consult Neurology Routine Ordered Studies 08/22/23 20:26 CT angio head w con Stat CT angio neck with con Stat CT head/brain wo con Stat 08/22/23 22:52 CT Abd and Pelvis [CT abd pelvis IV con only] Stat CT angio chest PE protocol Stat 08/23/23 00:04 MR brain wo con Urgent Hospital Course (1) Encephalopathy: Acute metabolic encephalopathy Likely multifactorial secondary to CVA, UTI Mental status back to baseline Imaging studies as below Monitor Acute CVA--POA H/O noncompliance with aspirin use--counseled --MRI brain:Findings concerning for a tiny focus of acute ischemic injury within the left pulvinar nucleus. --Head CTA:Normal head CTA --Neck CTA:No acute findings in the arteries of the neck. --Lipid Panel reviewed. LDL 31 --ECHO: Moderate concentric LVH. Left ventricular wall motion is normal. EF greater than 70%. Grade 1 diastolic dysfunction. No significant valvular disease. Appreciate neurology input PT OT, speech eval requested Continue aspirin, statin Plan to discharge home today Advised to follow-up with neurology on discharge Suspected UTI Urine culture not contributory--likely contaminated sample Continue Rocephin Repeat urine culture--probable skin harsha Blood cultures negative to date Acute Bronchitis COPD No pneumonia on CTA No wheezing on exam Procalcitonin Normal Empirically on Rocephin, doxycycline Transition to oral antibiotics to complete the course Hypertension continue amlodipine, valsartan Monitor BP DM II HbA1c 6.8 Hold p.o. medications Continue insulin while hospitalized Monitor BGs Hyperlipidemia on statin Other chronic conditions PFO Intellectual impairment as per records Anxiety/mood disorder--continue home medication ongoing tobacco abuse--counseled to quit. Prefers to be discharged on nicotine patches. Advised no smoking while on nicotine patch DVT Px: Lovenox SQ Code Status Full code Disposition Home with home health Total Time Total Time Spent Total Time Spent (In Minutes): 63 minutes Discharge Plan Discharge Items Patient Disposition: Home - Home Health Services Reason For Visit: SEPSIS, TIA Discharge Diagnosis: Acute metabolic encephalopathy Acute cerebrovascular accident Acute Bronchitis Ongoing tobacco abuse Condition on Discharge: Fair Activity: Per Instructions section Exercise/Sports: Gradually increase as tolerated Non-emergency contact: Primary Care Provider and Neurologist Call non-emergency contact if: you have any medication questions, your symptoms worsen, your pain is concerning for you and you have a fever Follow-up/Referrals: Barbara Cross PA-C [Physician [facility]] - (Date & Time 09/19/2023 11:20 AM Provider Barbara Cross PA-C Department Neurology [facility] ) Charlotte Cornejo DO [Outside Practitioners] - (Date & Time 08/29/2023 2:00 PM Provider Charlotte Cornejo DO Department [facility] ) Diet: Carb Consistent or DM2 and Heart Healthy Addtl Attending Provider Instructions: Follow-up with your primary care physician on 08/29/2023 2:00 PM Follow-up with your neurologist Barbara Cross PA-C on 09/19/2023 11:20 AM -- Complete the antibiotic course (cefdinir, doxycycline ) as prescribed. -- Take aspirin regularly as advised -- Quit smoking tobacco as advised. No smoking permitted while on nicotine patch. -- Your final blood cultures are pending at the time of discharge. Follow-up with your physician for results. Seek immediate medical attention if your symptoms reoccur or worsen Please take all medications as instructed on discharge list below. Please call if you have any questions or problems. You can reach a [facility] hospitalist on duty at [facility] 24 hours a day by calling [phone] Risk Factors for Stroke: You can reduce your chances of stroke by working with your medical provider to adopt a healthy lifestyle. Some specific ways to lower your chance of stroke are: * If you are a smoker, now is the time to stop smoking cigarettes * If you are diabetic, improve the control of your blood sugars * Avoid excessive amounts of alcohol * Control high blood pressure * Lose weight if you are overweight * Be sure to lead an active lifestyle * Eat a healthy diet low in salt, cholesterol and fat You should know about other risk factors for stroke that you are unable to control. These include: * Age 55 years or older * Male gender * Certain racial groups: , or / * Family History of Stroke, Mini stroke or Heart Attack * Sickle Cell Disease Follow Up: It is important for you to keep your follow up appointments with your medical provider. Who to Call and When: Medical Emergencies: Call 911 immediately if you experience any of the following warning signs and symptoms of Stroke: * Sudden numbness or weakness of the face, arm or leg, especially on one side of the body * Sudden confusion, trouble speaking or understanding * Sudden trouble seeing in one or both eyes * Sudden trouble walking, dizziness, loss of balance or coordination * Sudden severe headache with no cause Do not delay calling 911 if you experience any warning signs or symptoms of a stroke. Delay in seeking medical attention may affect what treatments can be given to you. . Pending Studies at Discharge: Yes Studies:: Blood cultures Stand-Alone Forms: My [facility], Smoking Cessation, Medications to Prevent Stroke Medications and DC Order Prescriptions: New doxycycline hyclate 100 mg Capsule 100 mg PO BID Qty: 7 0RF aspirin 81 mg Tablet,Delayed Release (Dr/Ec) 81 mg PO QAM Qty: 30 1RF nicotine [Nicoderm CQ] 21 mg/24 hr Patch 24 Hour 1 patch transdermal HS Qty: 30 1RF cefdinir 300 mg capsule 300 mg PO BID Qty: 7 0RF Continued atorvastatin 20 mg tablet 20 mg PO QAM amlodipine 10 mg tablet 10 mg PO DAILY mirtazapine 15 mg tablet 15 mg PO HS valsartan 80 mg tablet 80 mg PO QAM metformin 500 mg tablet extended release 24 hr 500 mg PO QAM latanoprost 0.005 % drops 1 drp OPB QPM albuterol sulfate [Ventolin HFA] 90 mcg/actuation HFA aerosol inhaler 2 puff INHALATION QID Discharge Orders: Discharge Order (Routine); Ordered 08/25/23 Ordered By: Soren Luna/Other Patient Handouts: High Blood Sugar (Hyperglycemia), Hypoglycemia (Low Blood Sugar), Managing Type 2 Diabetes, Diabetes: Meal Planning Admission Data Admit Date/Time: 08/22/23 23:49 Attending Provider: Soren Sy Admit Provider: Sreekanth Ambriz Primary Care Provider: Fred Eng Other Providers: Sreekanth Ambriz; Barbara Cross; Trav Antoine; Barbara Kaur; Benito Hsieh; Manny Brito; Tio Macdonald; Gabe Bradley; Meena Barrett; Corby Maier; Pablo Hargrove; Jarrett Velázquez; Taran Araiza; Celeste Kahn; Inez Sharp; Gabe Swanson; [facility]
[2023-08-25] MEDS: CEFDINIR 300 MG CAP PO ONE (13:20)
--- NOTE | 2023-08-28 11:03 | Pharmacy Report ---
Pharmacist Stroke Counseling - Date of Service August 28, 2023 - Scope: Pharmacy has been consulted to provide medication discharge counseling for this patient admitted with [ischemic stroke] [hemorrhagic stroke] [transient ischemic attack] as per the Pharmacist Discharge Counseling for Stroke Patients Protocol . - Medications on Discharge: Home Medications Medication Instructions Recorded Confirmed albuterol sulfate 90 mcg/actuation 2 puff inhalation QID 08/22/23 08/22/23 aerosol inhaler (Ventolin HFA) amlodipine 10 mg tablet 10 mg PO DAILY 08/22/23 08/22/23 atorvastatin 20 mg tablet 20 mg PO QAM 08/22/23 08/22/23 latanoprost 0.005 % eye drops 1 drp OPB QPM 08/22/23 08/22/23 metformin 500 mg tablet,extended 500 mg PO QAM 08/22/23 08/22/23 release 24 hr mirtazapine 15 mg tablet 15 mg PO HS 08/22/23 08/22/23 valsartan 80 mg tablet 80 mg PO QAM 08/22/23 08/22/23 New Rx's Medication Instructions Recorded aspirin 81 mg tablet,delayed 81 mg PO QAM #30 tabs 08/25/23 release cefdinir 300 mg capsule 300 mg PO BID #7 caps 08/25/23 doxycycline hyclate 100 mg capsule 100 mg PO BID #7 caps 08/25/23 nicotine 21 mg/24 hr daily 1 patch transdermal HS #30 ea 08/25/23 transdermal patch (Nicoderm CQ) - Action: The above medications, specifically ones for stroke treatment/prophylaxis, have been reviewed in detail with the patient and/or patient enrollment eligibility representative(s) prior to discharge. This includes indication, common adverse reactions, drug interactions, and medication administration. Medication counseling has been employed using the teach-back method to ensure understanding. - Outcome: The patient and/or patient enrollment eligibility representative(s) have demonstrated understanding of the medications. Additional comments: Was able to discuss medication changes with patient on discharge. Patient denies any missed doses, no issues/concerns. She reports that her mirtazepine was d/c - I recommended that she bring her updated med list with her on to her PCP visit to review all of these changes. Patient agreed. No other pertinent positives on interview. Thank you for allowing pharmacy to be involved in the care of this patient. Please call [phone] with any additional questions
== END 2023-08-25 14:38 | disposition home health service (06) | DRG 64 ==
LOC: ED 19:51 → EDINP 23:49 → 2N 08-23 17:07